=== PATIENT | male | born 1950 | race Caucasian/White ===

== ENCOUNTER → 2016-11-13 | Outpatient (CLI) | payer OTHER ==
[~2016-11-13] MED LIST: TRIA37.5 PO
[2016-11-13 13:26] LABS: ALT/SGPT 24 U/L (12-78); BLOOD UREA NITROGEN 20 mg/dl (7-18); BUN/CREATININE RATIO 16.9 (10-20); CALCIUM 8.9 mg/dl (8.5-10.1); CARBON DIOXIDE 25 mmol/L (21-32); CHLORIDE 107 mmol/L (98-107); GLUCOSE 110 mg/dl (70-99); POTASSIUM 4.3 mmol/L (3.5-5.1); SODIUM 139 mmol/L (136-145)
[2016-11-13 13:28] LABS: ALKALINE PHOSPHATASE 76 U/L (45-117); AST/SGOT 25 U/L (15-37)
[2016-11-13 13:34] LABS: ESTIMATED AVERAGE GLUCOSE 114 mg/dl; HA1C FLAG Normal (Normal)
--- NOTE | 2016-11-18 09:49 | CODING QUERY MEDICAL NECESSITY ---
SUPPORTING DIAGNOSIS NEEDED A supporting diagnosis is required for the test/procedure performed on this patient in order for us to be reimbursed by the patient's insurance. Please provide a supporting diagnosis for the following test/procedure listed below next to the test name along with your signature. *If there is no additional diagnosis for this patient that would support the following test/procedure please document that below next to the test/procedure. Test(s)/Procedure(s) that require a supporting diagnosis: * GLYCATED HEMOGLOBIN DIAGNOSIS: * DOS: 11/13/16 Provider Signature: Date: Thank you Yulia Nielsen Health Information Management Once completed, please kindly fax back to [phone] For questions please call [phone]
== END | disposition home or self-care (01) ==
LOC: C.LABPVFM 07:47
PROVIDERS: ATTEND Family Medicine
DX: R73.03 Prediabetes (principal); I10 Essential (primary) hypertension

== ENCOUNTER → 2017-05-20 | Outpatient (CLI) | payer OTHER ==
[~2017-05-20] VITALS: Ht 175.3 cm; Wt 98.7 kg
[2017-05-20 14:34] VITALS: BP 150/97; PULSE 96; Ht 175.3 cm; Wt 98.7 kg
== END | disposition home or self-care (01) ==
LOC: C.NEUR 13:25
PROVIDERS: ATTEND Internal Medicine Pulmonary Disease
DX: G47.33 Obstructive sleep apnea (adult) (pediatric) (principal)

== ENCOUNTER → 2017-10-29 | Outpatient (CLI) | payer OTHER ==
--- NOTE | 2017-10-29 09:59 | DIAGNOSTIC IMAGING REPORT ---
CERVICAL SPINE 5 VIEWS CLINICAL HISTORY: Cervical radiculopathy. FINDINGS: AP, lateral, bilateral oblique, and odontoid views of the cervical spine are compared to study dated 12/23/2012. The skeletal structures are osteopenic. There is no radiographic evidence of fracture or subluxation. Vertebral body height is maintained throughout the cervical spine. There is minimal anterolisthesis at C3-C4 and C4-C5. Alignment is otherwise preserved. There is straightening of the cervical lordosis with reversal centered at C4. The spinolaminar line is preserved. The odontoid process and lateral masses appear intact as seen on the open-mouth view. Anterior osteophytes are seen throughout. There is moderate to advanced disc space narrowing with associated endplate sclerosis seen at C5-C6 and C6-C7. Posterior disc osteophyte complexes at these levels likely contribute to acquired compromise of the central canal. Mild disc space narrowing is seen at C4-C5. Neural foraminal stenosis is suggested on the left from C3-C4 through C5-C6 on the oblique views. No significant neural foraminal stenosis is suggested on the right. The prevertebral soft tissues are normal in appearance. Partially imaged apical lung parenchyma appears clear. Mild atherosclerotic calcification is noted in the carotid bulbs. IMPRESSION: 1. No acute bony abnormality is seen involving the cervical spine. 2. Osteopenia and cervical spondylosis as detailed above. Dictated: 10/29/2017 9:53 AM Transcribed: 10/29/2017 9:59 AM [place] Electronically signed by: Wallace Isaac M.D. 10/29/2017 10:06 AM Dictated Date/Time: 10/29/2017 9:53 AM
[2017-10-29 13:48] LABS: ALBUMIN 3.9 gm/dl (3.4-5.0); ALT/SGPT 24 U/L (12-78); BLOOD UREA NITROGEN 15 mg/dl (7-18); CALCIUM 9.6 mg/dl (8.5-10.1); CARBON DIOXIDE 27 mmol/L (21-32); CHOLESTEROL 161 mg/dl (0-200); CREATININE 1.31 mg/dl (0.60-1.40); GLUCOSE 105 mg/dl (70-99); POTASSIUM 4.8 mmol/L (3.5-5.1); SODIUM 137 mmol/L (136-145)
[2017-10-29 13:51] LABS: ALKALINE PHOSPHATASE 79 U/L (45-117); AST/SGOT 23 U/L (15-37); LDL CHOLESTEROL CALCULATED 86 mg/dl; TOTAL PROTEIN 7.7 gm/dl (6.4-8.2)
== END | disposition home or self-care (01) ==
LOC: C.LABPVFM 09:32
PROVIDERS: ATTEND Family Medicine
DX: M54.12 Radiculopathy, cervical region (principal); I12.9 Hypertensive chronic kidney disease with stage 1 through stage 4 chronic kidney disease, or unspecified chronic kidney disease; N18.3 Chronic kidney disease, stage 3 (moderate); G47.30 Sleep apnea, unspecified; E78.5 Hyperlipidemia, unspecified; M85.88 Other specified disorders of bone density and structure, other site; M47.892 Other spondylosis, cervical region

== ENCOUNTER → 2017-11-05 | Outpatient (CLI) | payer OTHER ==
--- NOTE | 2017-11-05 09:13 | DIAGNOSTIC IMAGING REPORT ---
ABDOMINAL AORTIC ULTRASOUND CLINICAL HISTORY: Z13.6 Screening for AAA (abdominal aortic aneurysm)[id number] COMPARISON STUDY: None. FINDINGS: The abdominal aorta is normal in caliber measuring up to 1.8 cm in diameter. The bilateral common iliac arteries are also normal in caliber measuring 1.2 cm on the right and 1.3 cm left. IMPRESSION: Normal caliber abdominal aorta. Electronically signed by: Cristobal Lindquist M.D. 11/05/2017 9:11 AM Dictated Date/Time: 11/05/2017 9:10 AM
== END | disposition home or self-care (01) ==
LOC: C.ULTR 08:30
PROVIDERS: ATTEND Family Medicine
DX: Z13.6 Encounter for screening for cardiovascular disorders (principal)

== ENCOUNTER → 2017-11-16 | Outpatient (CLI) | payer OTHER ==
--- NOTE | 2017-11-16 11:33 | DIAGNOSTIC IMAGING REPORT ---
CERVICAL SPINE MRI HISTORY: Neck pain. Bilateral hand numbness. TECHNIQUE: Multiplanar multisequence MRI of the cervical spine was performed without the use of contrast. COMPARISON STUDY: Cervical spine radiograph 10/29/2017. FINDINGS: Slight reversal of the normal lordotic curvature of the cervical spine. Moderate to space are at C4-C5, C5-C6, and C6-C7 with small endplate osteophytes. The cervical spinal cord is normal in course, caliber, and signal intensity. The visualized posterior fossa is unremarkable. Prevertebral soft tissues and the C1-C2 interval are intact. C2-C3: No significant central canal or neural foraminal narrowing. C3-C4: No severe central canal or right-sided neural foraminal narrowing. There is mild left-sided neural foraminal narrowing. C4-C5: Small broad-based posterior disc bulge without significant central canal narrowing. There is moderate bilateral neural foraminal narrowing. C5-C6: Small broad-based posterior disc bulge without significant central canal narrowing. There is moderate bilateral neural foraminal narrowing. C6-C7: Small broad-based posterior disc bulge without significant central canal narrowing. There is moderate right and severe left neural foraminal narrowing. C7-T1: No significant central canal or neural foraminal narrowing. IMPRESSION: 1. Multilevel degenerative changes as described above primarily resulting in bilateral neural foraminal narrowing. This is most pronounced at the C6-C7 level. 2. Slight reversal of the normal lordotic curvature. Electronically signed by: Cristobal Lindquist M.D. 11/16/2017 11:32 AM Dictated Date/Time: 11/16/2017 11:17 AM
== END | disposition home or self-care (01) ==
LOC: C.MRIBC 09:35
PROVIDERS: ATTEND Orthopaedic Surgery Orthopaedic Surgery of the Spine
DX: M47.12 Other spondylosis with myelopathy, cervical region (principal)

== ENCOUNTER → 2018-05-05 | Outpatient (CLI) | payer OTHER ==
[~2018-05-05] VITALS: Ht 172.7 cm; Wt 99.8 kg
[2018-05-05 09:47] VITALS: BP 154/98; PULSE 59; Ht 172.7 cm; Wt 99.8 kg
== END | disposition home or self-care (01) ==
LOC: C.NEUR 09:02
PROVIDERS: ATTEND Internal Medicine Pulmonary Disease
DX: G47.33 Obstructive sleep apnea (adult) (pediatric) (principal)

== ENCOUNTER 2024-01-27 08:02 | Inpatient (IN) ==
--- NOTE | 2024-01-27 08:55 | Emergency Department Note ---
Impression & Plan Right-sided chest pain, Pulmonary emboli, Pleural effusion on right ED Provider Note HISTORY OF PRESENT ILLNESS: Patient is a 73-year-old female presenting with right shoulder pain and right lower chest pain. Patient reports that he woke up last night having significant pain with taking a deep breath. His called his doctor advised him Webb who recommended he present to the emergency department to rule out a blood clot to the lung. Patient fell last week and had negative scans at that time. He has been requiring significant assistance getting around the house. He is not currently on any anticoagulation. He denies any DVT or PE history. He is complaining of some right shoulder pain and reports pleuritic pain to the right lower chest wall and right upper quadrant region. Denies any fevers. He has been on omeprazole and dexamethasone prescribed by his oncologist. ROS: as above PHYSICAL EXAM: Constitutional: Patient appears in no acute distress. HENT: Head: Normocephalic and atraumatic. Eyes: EOMI, PERRL Mouth/Throat: Mucous membranes moist. Neck: Trachea midline. Neck supple. Cardiovascular: RRR, No murmurs, rubs or gallops. Intact distal pulses. Pulmonary/Chest: No respiratory distress. Breath sounds clear and equal bilaterally. No wheezes or rales. Abdominal: Abdomen soft, no rebound or guarding. RUQ TTP Musculoskeletal: No edema, tenderness or deformity noted. Reproducible tenderness to palpation to the mid-trapezius on the right. Skin: Warm and dry. No rash, erythema, pallor or cyanosis Psychiatric: Appropriate mood and affect for situation. Neurological: Alert and keenly responsive. CN II-XII grossly intact. Patient is able to lift her left upper extremity but has no movement in the left lower extremity, which she reports is chronic. MDM: - Vitals signs showed hypertension - History obtained via patient. History as above. - Chronic conditions affecting care: HTN; HLD; RAMOS; CKD stage 3; glioblastoma - Differential diagnoses include, but are not limited to: Acute coronary syndrome; pulmonary embolism; dissection; tension pneumothorax; esophageal rupture; pneumonia - Order placed for continuous cardiac monitoring. At this time, monitor showed rate of 76 bpm with normal sinus rhythm, per my interpretation. - External medical records reviewed. Showed discharge summary from [facility] dated 08/14/2023 was reviewed. Patient was admitted at that time for a right frontoparietal craniotomy for removal of the tumor. - EKG interpreted by myself showed normal sinus rhythm. Rate 74 bpm. QT 396. No acute ischemic changes. Noted to have some significant artifact on baseline. - Laboratory workup interpreted by myself showed normal WBC; thrombocytopenia (plt 124); normal PT/INR; stable electrolytes; normal troponin; normal BNP - CXR negative for pneumonia, per my interpretation - Xray right shoulder negative for fracture or dislocation - CT PE showed pulmonary emboli bilaterally involving the lobar, segmental and subsegmental branches, right greater than left. Also some straightening of the interventricular septum concerning for right heart strain. Noted to have some trace right pleural effusion. - CT abdomen/pelvis with IV contrast showed bilateral PEs as above. No acute intra-abdominal pathology - UA negative for infection - Patient initially given 50 mcg IV fentanyl. On reassessment, he reports that the fentanyl helped for a few minutes but the pain is back. He was given additional 50 mcg of IV fentanyl. Still complaining of significant pain and looks very uncomfortable. He was given 1 mg of IV Dilaudid. He did require some supplemental oxygen after Dilaudid dosing. - Heparin drip ordered. - Discussed case with [facility] oncologist, Dr. Phillips at 11:23. He agreed with the patient's heparin drip, but recommended discussion with hospitalist and neurosurgery services. - I then discussed the patient's case with the triage officer at [facility], Dr. Jevon Weaver at 12:16. He accepted the patient for transfer, but reported that there are no beds available at their facility. - Dr. Weaver called me back at 1245. He states that he had a multidisciplinary discussion with oncology, hospitalist and neurosurgical services at [facility]. They all felt comfortable with plan for the patient to remain admitted here at [facility] on heparin. Neurosurgery had recommended that once the patient is therapeutic on heparin, a repeat CT scan of the brain be obtained to ensure no abnormalities, but there is a thought that the risk of bleed in this patient is the same as the risk in someone who did not have surgery. Recommended patient be anticoagulated until therapeutic and then transition to oral anticoagulation per protocols at our facility. Can follow-up with his specialist in the outpatient setting. - Discussion was had with nurse case management about patient's case and need for admission - Hospitalist consulted for admission - [facility] ASSESSMENT AND PLAN: Diagnosis: Right-sided chest pain; pulmonary emboli; right pleural effusion Plan: Admit Past Med/Surg History Medical History (Updated 01/27/24 @ 13:06 by Hannah Malin MD) Mass of frontal lobe Cervical radiculopathy Chronic kidney disease, stage 3 Dyslipidemia Hypertension Obstructive sleep apnea, adult Sleep apnea Surgical History History of orthopedic surgery Amputation H/O shoulder surgery Family History Unknown No problems noted. Father Myocardial infarction Denies family history of Ovarian cancer Prostate cancer Diabetes Breast cancer Colorectal cancer Social History Smoking Status: Never smoker Hx Alcohol Use: No Hx Substance Use: No Preferred Language: Kittitian Beliefs That Will Affect Care: Taoist marital status: Current Living Situation: Spouse current occupational status: retired Feels Safe at Home: Yes caffeine: Yes Dental Care, Regularly: Yes Physical Activity Frequency: Does not Exercise Seatbelt Use: always Sunscreen Use: No Allergies Allergies Allergy/AdvReac Type Severity Reaction Status Date / Time amoxicillin Allergy Unknown HEADACHE Verified 01/18/24 20:43 Penicillins AdvReac Unknown headache Verified 01/18/24 20:43 Home Meds Home Medications Medication Instructions Recorded Confirmed atorvastatin 10 mg tablet 10 mg PO QAM 05/12/19 01/27/24 clonazepam 0.5 mg tablet 0.5 mg PO TID PRN Anxiety 08/15/20 01/27/24 lacosamide 200 mg tablet (Vimpat) 200 mg PO BID 08/15/20 01/27/24 levetiracetam 500 mg tablet 1,500 mg PO BID 08/15/20 01/27/24 (Keppra) ondansetron 8 mg disintegrating 8 mg PO Q8H PRN Nausea 08/15/20 01/27/24 tablet phenytoin sodium extended 100 mg 100 mg PO .COMPLEX 08/15/20 01/27/24 capsule sertraline 50 mg tablet 50 mg PO DAILY 08/15/20 01/27/24 acetaminophen 500 mg tablet 1,000 mg PO Q8 PRN Pain 01/18/24 01/27/24 (Tylenol Extra Strength) clotrimazole-betamethasone 1 1 applic topical UD 01/27/24 01/27/24 %-0.05 % topical cream dexamethasone 4 mg tablet 4 mg PO UD 01/27/24 01/27/24 omeprazole 20 mg capsule,delayed 20 mg PO UD 01/27/24 01/27/24 release Results & Data (ED) Vital Signs Vital Signs - 24 hr 01/27/24 08:09 01/27/24 08:17 01/27/24 08:30 Temperature 36.8 C Temperature Source Oral Pulse Rate 76 77 Pulse Rate from SpO2 Sensor Pulse Rhythm Respiratory Rate 12 19 Respiratory Depth Normal Blood Pressure 157/99 H 161/95 H Blood Pressure Mean 118 110 Blood Pressure Position Right Lateral Pulse Oximetry 92 93 Oxygen Delivery Method Room Air Room Air Sepsis Recent Fever Within 48 Hours No Sepsis New/Unexplained Change in Mental Status N/A Sepsis Action Taken by Nursing No Action Required 01/27/24 08:45 01/27/24 09:00 01/27/24 09:37 Temperature Temperature Source Pulse Rate 87 78 Pulse Rate from SpO2 Sensor 72 Pulse Rhythm Regular Respiratory Rate 12 16 Respiratory Depth Blood Pressure 136/78 Blood Pressure Mean 97 Blood Pressure Position Pulse Oximetry 93 92 Oxygen Delivery Method Room Air Sepsis Recent Fever Within 48 Hours Sepsis New/Unexplained Change in Mental Status Sepsis Action Taken by Nursing 01/27/24 10:31 01/27/24 11:00 01/27/24 11:31 Temperature Temperature Source Pulse Rate 79 76 88 Pulse Rate from SpO2 Sensor Pulse Rhythm Respiratory Rate 15 18 19 Respiratory Depth Blood Pressure 161/89 H 162/89 H Blood Pressure Mean 106 128 Blood Pressure Position Pulse Oximetry 93 93 92 Oxygen Delivery Method Room Air Room Air Room Air Sepsis Recent Fever Within 48 Hours Sepsis New/Unexplained Change in Mental Status Sepsis Action Taken by Nursing 01/27/24 12:10 Temperature Temperature Source Pulse Rate 76 Pulse Rate from SpO2 Sensor Pulse Rhythm Respiratory Rate 21 Respiratory Depth Blood Pressure 150/97 H Blood Pressure Mean 114 Blood Pressure Position Pulse Oximetry 92 Oxygen Delivery Method Sepsis Recent Fever Within 48 Hours Sepsis New/Unexplained Change in Mental Status Sepsis Action Taken by Nursing Laboratory Data 01/27/24 08:17 01/27/24 08:17 Lab Results 01/27/24 01/27/24 01/27/24 Range/Units 08:17 11:41 12:00 WBC 9.27 (4.8-10.8) K/ul RBC 5.33 (4.70-6.10) M/uL Hgb 17.6 (14.0-18.0) g/dl Hct 50.9 (42.0-52.0) % MCV 95.5 (80.0-100.0) fL MCH 33.0 (25.0-34.0) pg MCHC 34.6 (32.0-36.0) g/dL RDW Std Deviation 47.4 H (36.4-46.3) fL RDW Coeff of Yoanna 13.4 (11.5-14.5) % Plt Count 124 L (130-400) K/uL MPV 9.3 L (9.4-12.4) fL Immature Gran % (Auto) 0.5 % Neut % (Auto) 71.3 % Lymph % (Auto) 16.6 % Potter % (Auto) 10.7 % Eos % (Auto) 0.8 % Baso % (Auto) 0.1 % Neut # (Auto) 6.61 H (1.40-6.50) K/uL Lymph # (Auto) 1.54 (1.20-3.40) K/uL Potter # (Auto) 0.99 H (0.11-0.59) K/uL Eos # (Auto) 0.07 (0.00-0.50) K/uL Baso # (Auto) 0.01 (0.00-0.20) K/uL Immature Gran # (Auto) 0.05 (0.01-0.20) K/uL PT 10.9 (9.0-12.0) Seconds INR 1.0 (0.9-1.1) APTT 28 (21-31) Seconds PTT Ratio 1.0 Sodium 137 (136-145) mmol/L Potassium 3.7 (3.5-5.1) mmol/L Chloride 105 (98-107) mmol/L Carbon Dioxide 26 (21-32) mmol/L Anion Gap 6 (3-11) BUN 20 (6-23) mg/dl Creatinine 0.91 (0.6-1.4) mg/dl Est Cr Clr Drug Dosing 81.1 ml/min Est GFR ( Amer) 95.9 ml/min Est GFR (Non-Af Amer) 82.7 ml/min BUN/Creatinine Ratio 22.0 H (10-20) Glucose 96 (70-99(Fasting)) mg/dl Calcium 9.5 (8.6-10.3) mg/dl Magnesium 1.8 (1.7-2.4) mg/dl Total Bilirubin 0.6 (0.2-1.0) mg/dl AST 15 (13-39) U/L ALT 16 (7-52) U/L Alkaline Phosphatase 107 H (34-104) U/L Troponin I High Sens 4.9 (0-20) pg/ml B-Natriuretic Peptide 31 (0-100) pg/ml Total Protein 7.0 (6.0-8.3) gm/dl Albumin 4.0 (3.4-5.0) gm/dl Globulin 3.0 (2.5-4.0) gm/dl Albumin/Globulin Ratio 1.3 (0.9-2) Urine Color Urine Appearance (Clear) Urine pH (4.5-7.5) Ur Specific [place] (1.000-1.030) Urine Protein (Negative) Urine Glucose (UA) (Negative) Urine Ketones (Negative) Urine Blood (Negative) Urine Nitrite (Negative) Urine Bilirubin (Negative) Urine Urobilinogen (Negative) Ur Leukocyte Esterase (Negative) 01/27/24 Range/Units 12:08 WBC (4.8-10.8) K/ul RBC (4.70-6.10) M/uL Hgb (14.0-18.0) g/dl Hct (42.0-52.0) % MCV (80.0-100.0) fL MCH (25.0-34.0) pg MCHC (32.0-36.0) g/dL RDW Std Deviation (36.4-46.3) fL RDW Coeff of Yoanna (11.5-14.5) % Plt Count (130-400) K/uL MPV (9.4-12.4) fL Immature Gran % (Auto) % Neut % (Auto) % Lymph % (Auto) % Potter % (Auto) % Eos % (Auto) % Baso % (Auto) % Neut # (Auto) (1.40-6.50) K/uL Lymph # (Auto) (1.20-3.40) K/uL Potter # (Auto) (0.11-0.59) K/uL Eos # (Auto) (0.00-0.50) K/uL Baso # (Auto) (0.00-0.20) K/uL Immature Gran # (Auto) (0.01-0.20) K/uL PT (9.0-12.0) Seconds INR (0.9-1.1) APTT (21-31) Seconds PTT Ratio Sodium (136-145) mmol/L Potassium (3.5-5.1) mmol/L Chloride (98-107) mmol/L Carbon Dioxide (21-32) mmol/L Anion Gap (3-11) BUN (6-23) mg/dl Creatinine (0.6-1.4) mg/dl Est Cr Clr Drug Dosing ml/min Est GFR ( Amer) ml/min Est GFR (Non-Af Amer) ml/min BUN/Creatinine Ratio (10-20) Glucose (70-99(Fasting)) mg/dl Calcium (8.6-10.3) mg/dl Magnesium (1.7-2.4) mg/dl Total Bilirubin (0.2-1.0) mg/dl AST (13-39) U/L ALT (7-52) U/L Alkaline Phosphatase (34-104) U/L Troponin I High Sens (0-20) pg/ml B-Natriuretic Peptide (0-100) pg/ml Total Protein (6.0-8.3) gm/dl Albumin (3.4-5.0) gm/dl Globulin (2.5-4.0) gm/dl Albumin/Globulin Ratio (0.9-2) Urine Color Yellow Urine Appearance Clear (Clear) Urine pH 6.0 (4.5-7.5) Ur Specific [place] > 1.045 H (1.000-1.030) Urine Protein Negative (Negative) Urine Glucose (UA) Negative (Negative) Urine Ketones Negative (Negative) Urine Blood Negative (Negative) Urine Nitrite Negative (Negative) Urine Bilirubin Negative (Negative) Urine Urobilinogen Negative (Negative) Ur Leukocyte Esterase Negative (Negative) Administered Medications Heparin Sodium/Dextrose (Heparin Sodium/Dextrose) 25,000 units in 500 mls @ 29 mls/hr IV .[id number] MARY; Protocol Stop: 02/26/24 11:59 Last Admin: 01/27/24 12:10 Dose: 1,450 units/hr, 29 mls/hr Documented By: GURVINDER Co-signed By: KMO Discontinued Medications Fentanyl Citrate (Fentanyl Citrate Pf 100 Mcg/2 Ml Vial) 50 mcg IV NOW STA Stop: 01/27/24 08:53 Last Admin: 01/27/24 09:33 Dose: 50 mcg Documented By: GURVINDER Fentanyl Citrate (Fentanyl Citrate Pf 100 Mcg/2 Ml Vial) 50 mcg IV NOW STA Stop: 01/27/24 10:28 Last Admin: 01/27/24 10:36 Dose: 50 mcg Documented By: GURVINDER Heparin Sodium/Dextrose (Heparin Iv Adult Wt-Based Standard *No* Initial Bolus Protocol) 1 each IV ONE STA; Protocol Stop: 01/27/24 11:36 Last Admin: 01/27/24 12:10 Dose: Not Given Documented By: GURVINDER Hydromorphone HCl (Hydromorphone Inj 1 Mg/Ml Syringe) 1 mg IV NOW STA Stop: 01/27/24 11:36 Last Admin: 01/27/24 12:08 Dose: 1 mg Documented By: GURVINDER Ioversol (Optiray 320 125ml) 115 ml IV ONCE ONE Stop: 01/27/24 10:13 Last Admin: 01/27/24 10:12 Dose: 115 ml Documented By: KOJO Imaging Data Radiologist's Impression: Shoulder X-Ray 01/27/24 08:31 XR shoulder RT min 2V routine CLINICAL HISTORY: R shoulder pain s/p injury COMPARISON STUDY: None. FINDINGS: No fracture or dislocation within the right shoulder. The right clavicle is intact. Mild osteoarthritis at the glenohumeral joint. IMPRESSION: No fracture or dislocation within the right shoulder. ACT 112: Negative or not required by law. Electronically signed by: Cristobal Lindquist M.D. 01/27/2024 9:24 AM Abdomen/Pelvis CT 01/27/24 08:[address] WITH IV CONTRAST CT DOSE: HISTORY: RUQ abdominal pain TECHNIQUE: Multiaxial CT images of the abdomen and pelvis were performed following the use of intravenous contrast. A dose lowering technique was utilized adhering to the principles of ALARA. COMPARISON STUDY: None. FINDINGS: The lung bases will be reported on the same day chest CTA. There is a trace right pleural effusion. There are bilateral lower lobe pulmonary emboli. The heart is mildly enlarged. No pneumoperitoneum. No pneumatosis. No acute fractures. No hepatic or splenic masses. The main portal vein is patent. The gallbladder, pancreas, and adrenal glands are unremarkable. 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 The right kidney enhances normally. There are small left peripelvic renal cysts. No hydronephrosis. Small fat-containing umbilical hernia. There are small fat-containing left inguinal hernia. No retroperitoneal lymphadenopathy. No pelvic lymphadenopathy or pelvic free fluid. The bladder is unremarkable. The prostate gland is mildly enlarged. Colonic diverticulosis. No evidence for acute diverticulitis. No bowel wall thickening or obstruction. Normal appendix. IMPRESSION: 1. Bilateral lower lobe pulmonary emboli. This is better appreciated on the same day chest CTA. 2. Trace right pleural effusion. 3. No bowel wall thickening or obstruction. 4. Colonic diverticulosis. No evidence for acute diverticulitis. 5. Additional findings as described above. ACT 112: Negative or not required by law. Electronically signed by: Cristobal Lindquist M.D. 01/27/2024 10:50 AM Chest CTA 01/27/24 08:52 CT angio chest PE protocol CT DOSE: 2179.59 mGy.cm HISTORY: 73 years-old Male with PE; R lower pleurtic CP; CA hx. Acute chest pain with shortness of breath TECHNIQUE: Multiple CTA images of the chest were obtained after the intravenous administration of 115 ml Optiray. Coronal and sagittal MIPS were obtained from the axial data set and were submitted for review. All measurements were obtained according to NASCET criteria. A dose lowering technique was utilized adhering to the principles of ALARA. COMPARISON: CT abdomen and pelvis of same day FINDINGS: CTA: Heart is mildly enlarged. Trace pericardial effusion. Extensive coronary artery calcifications. Mild fusiform dilation of the ascending thoracic aorta measures up to 4 cm. No dissection. There is a considerable amount of pulmonary emboli noted bilaterally which involve the lobar, segmental and subsegmental branches, right greater than left. There is straightening of the intraventricular septum. No sagittal pulmonary embolus. CT CHEST: Respiratory motion artifact in its evaluation of the lungs. Unremarkable thyroid. No lymphadenopathy. Trace right pleural effusion with subsegmental bibasilar atelectasis. No large pulmonary infarct. Irregular partially calcified 9 mm solid nodules in the superior segment left lower lobe on image 131. A 7 mm solid nodule at the right lung apex is present on image 134. Central airways appear patent. No acute upper abdominal abnormality. Unremarkable soft tissues. No acute fracture. IMPRESSION: 1. Pulmonary emboli as above with associated right heart strain. 2. Trace right pleural effusion with mild bibasilar atelectasis. 3. Partially calcified irregular 9 mm superior segment left lower lobe and noncalcified 7 mm right upper lobe pulmonary nodules. Six-month follow-up chest CT recommended. 4. Mild fusiform dilation of the ascending thoracic aorta, 4 cm. ACT 112: Negative or not required by law. The above report was generated using voice recognition software. It may contain grammatical, syntax or spelling errors. Electronically signed by: Red Lisa M.D. 01/27/2024 10:46 AM Chest X-Ray 01/27/24 08:52 XR chest 1V portable HISTORY: 73 years-old Male Dyspnea acute shortness of breath COMPARISON: CTA chest of same day TECHNIQUE: AP view of the chest FINDINGS: Cardiac silhouette is enlarged. No pneumothorax, pleural effusion or overt pulmonary edema. Pulmonary vascular congestion with mild bibasilar opacities. Bones appear grossly intact. IMPRESSION: 1. Cardiomegaly with pulmonary vascular congestion. 2. Mild bibasilar atelectasis. ACT 112: Negative or not required by law. The above report was generated using voice recognition software. It may contain grammatical, syntax or spelling errors. Electronically signed by: Red Lisa M.D. 01/27/2024 10:29 AM Discharge Plan Visit Data Chief Complaint: Shoulder Pain ED Provider: Hannah Malin Discharge Problem: Right-sided chest pain, Pulmonary emboli, Pleural effusion on right Patient Disposition: Transfer Acute Care Hospital Forms Stand Alone Forms: [facility] Prescriptions Prescriptions: No Action levetiracetam [Keppra] 500 mg tablet 1,500 mg PO BID Rx Instructions: Take with 1,000mg tab =1,500 mg bid. phenytoin sodium extended 100 mg capsule 100 mg PO .COMPLEX Rx Instructions: 100 mg PO 1 pill at 8am, 1 pills at 1430 and 2 pill 2130; Vimpat 200 mg tablet 200 mg PO BID sertraline 50 mg tablet 50 mg PO DAILY ondansetron 8 mg tablet,disintegrating 8 mg PO Q8H PRN (Reason: Nausea) clonazepam 0.5 mg tablet 0.5 mg PO TID PRN (Reason: Anxiety) atorvastatin 10 mg tablet 10 mg PO QAM acetaminophen [Tylenol Extra Strength] 500 mg Tablet 1,000 mg PO Q8 PRN (Reason: Pain) dexamethasone 4 mg tablet 4 mg PO UD clotrimazole-betamethasone 1-0.05 % cream 1 applic TOPICAL UD omeprazole 20 mg capsule,delayed release(DR/EC) 20 mg PO UD Referrals Referrals: Uzair Blanc MD [Primary Care Provider] -
[2024-01-27 09:10] LABS: Basophils # (auto) 0.01 K/uL (0.00-0.20); Basophils % (auto) 0.1 %; Eosinophils # (auto) 0.07 K/uL (0.00-0.50); Eosinophils % (auto) 0.8 %; Hematocrit (blood only) 50.9 % (42.0-52.0); Hemoglobin 17.6 g/dl (14.0-18.0); Immature Granulocytes # (auto) 0.05 K/uL (0.01-0.20); Immature Granulocytes % (auto) 0.5 %; Lymphocytes # (auto) 1.54 K/uL (1.20-3.40); Lymphocytes % (auto) 16.6 %; Mean Corpuscular Hgb Conc 34.6 g/dL (32.0-36.0); Mean Corpuscular Volume 95.5 fL (80.0-100.0); Mean Platelet Volume 9.3 fL (9.4-12.4); Monocytes # (auto) 0.99 K/uL (0.11-0.59); Monocytes % (auto) 10.7 %; Neutrophils # (auto) 6.61 K/uL (1.40-6.50); Neutrophils % (auto) 71.3 %; Platelet Count 124 K/uL (130-400); RDW Coefficient of Variation 13.4 % (11.5-14.5); RDW Standard Deviation 47.4 fL (36.4-46.3); Red Blood Count 5.33 M/uL (4.70-6.10); White Blood Count 9.27 K/ul (4.8-10.8)
[2024-01-27 09:14] LABS: Albumin Globulin Ratio 1.3 (0.9-2); Bilirubin,Total 0.6 mg/dl (0.2-1.0); Calcium 9.5 mg/dl (8.6-10.3); Creatinine Clr Calc Pharmacy 81.1 ml/min; Est GFR (African American) 95.9 ml/min; Est GFR (Non-African American) 82.7 ml/min; Magnesium 1.8 mg/dl (1.7-2.4); Potassium 3.7 mmol/L (3.5-5.1)
[2024-01-27 09:21] LABS: Troponin I High Sensitivity 4.9 pg/ml (0-20)
--- NOTE | 2024-01-27 09:25 | XRay Report ---
XR shoulder RT min 2V routine CLINICAL HISTORY: R shoulder pain s/p injury COMPARISON STUDY: None. FINDINGS: No fracture or dislocation within the right shoulder. The right clavicle is intact. Mild os teoarthritis at the glenohumeral joint. IMPRESSION: No fracture or dislocation within the right shoulder. ACT 112: Negative or not required by law. Electronically signed by: Cristobal Lindquist M.D. 01/27/2024 9:24 AM
[2024-01-27] MEDS: fentaNYL citrate PF 100 MCG/2 ML VIAL IV STA ×2 (09:33→10:36)
[2024-01-27] MEDS: OPTIRAY 320 125ml IV ONE (10:12)
--- NOTE | 2024-01-27 10:30 | XRay Report ---
XR chest 1V portable HISTORY: 73 years-old Male Dyspnea acute shortness of breath COMPARISON: CTA chest of same day TECHNIQUE: AP view of the chest FINDINGS: Cardiac silhouette is enlarged. No pneumothorax, pleural effusion or overt pulmonary edema. Pulmonary vascular congestion with mild bibasilar opacities. Bones appear grossly intact. IMPRESSION: 1. Cardiomegaly with pulmonary vascular congestion. 2. Mild bibasilar atelectasis. ACT 112: Negative or not required by law. The above report was generated using voice recognition software. It may contain grammatical, syntax o r spelling errors. Electronically signed by: Red Lisa M.D. 01/27/2024 10:29 AM
--- NOTE | 2024-01-27 10:48 | CT Scan Report ---
CT angio chest PE protocol CT DOSE: 2179.59 mGy.cm HISTORY: 73 years-old Male with PE; R lower pleurtic CP; CA hx. Acute chest pain with shortness of breath TECHNIQUE: Multiple CTA images of the chest were obtained after the intravenous administration of 115 ml Optiray. Coronal and sagittal MIPS were obtained from the axial data set and were submitted for review. All measurements were obtained according to NASCET criteria. A dose lowering technique was u tilized adhering to the principles of ALARA. COMPARISON: CT abdomen and pelvis of same day FINDINGS: CTA: Heart is mildly enlarged. Trace pericardial effusion. Extensive coronary artery calcifications. Mild fusiform dilation of the ascending thoracic aorta measures up to 4 cm. No dissection. There is a cons iderable amount of pulmonary emboli noted bilaterally which involve the lobar, segmental and subsegme ntal branches, right greater than left. There is straightening of the intraventricular septum. No sag ittal pulmonary embolus. CT CHEST: Respiratory motion artifact in its evaluation of the lungs. Unremarkable thyroid. No lymphadenopathy. Trace right pleural effusion with subsegmental bibasilar atelectasis. No large pulmonary infarct. Ir regular partially calcified 9 mm solid nodules in the superior segment left lower lobe on image 131. A 7 mm solid nodule at the right lung apex is present on image 134. Central airways appear patent. No acute upper abdominal abnormality. Unremarkable soft tissues. No acute fracture. IMPRESSION: 1. Pulmonary emboli as above with associated right heart strain. 2. Trace right pleural effusion with mild bibasilar atelectasis. 3. Partially calcified irregular 9 mm superior segment left lower lobe and noncalcified 7 mm right up per lobe pulmonary nodules. Six-month follow-up chest CT recommended. 4. Mild fusiform dilation of the ascending thoracic aorta, 4 cm. ACT 112: Negative or not required by law. The above report was generated using voice recognition software. It may contain grammatical, syntax o r spelling errors. Electronically signed by: Red Lisa M.D. 01/27/2024 10:46 AM
--- NOTE | 2024-01-27 10:51 | CT Scan Report ---
ABDOMEN AND PELVIS CT WITH IV CONTRAST CT DOSE: HISTORY: RUQ abdominal pain TECHNIQUE: Multiaxial CT images of the abdomen and pelvis were performed following the use of intrave nous contrast. A dose lowering technique was utilized adhering to the principles of ALARA. COMPARISON STUDY: None. FINDINGS: The lung bases will be reported on the same day chest CTA. There is a trace right pleural e ffusion. There are bilateral lower lobe pulmonary emboli. The heart is mildly enlarged. No pneumoperi toneum. No pneumatosis. No acute fractures. No hepatic or splenic masses. The main portal vein is pat ent. The gallbladder, pancreas, and adrenal glands are unremarkable. A 9 mm fat-containing lesion wit hin the left kidney is consistent with a small angiomyolipoma. The right kidney enhances normally. Th ere are small left peripelvic renal cysts. No hydronephrosis. Small fat-containing umbilical hernia. There are small fat-containing left inguinal hernia. No retroperitoneal lymphadenopathy. No pelvic ly mphadenopathy or pelvic free fluid. The bladder is unremarkable. The prostate gland is mildly enlarge d. Colonic diverticulosis. No evidence for acute diverticulitis. No bowel wall thickening or obstruct ion. Normal appendix. IMPRESSION: 1. Bilateral lower lobe pulmonary emboli. This is better appreciated on the same day chest CTA. 2. Trace right pleural effusion. 3. No bowel wall thickening or obstruction. 4. Colonic diverticulosis. No evidence for acute diverticulitis. 5. Additional findings as described above. ACT 112: Negative or not required by law. Electronically signed by: Cristobal Lindquist M.D. 01/27/2024 10:50 AM
[2024-01-27] MEDS: HYDROmorphone INJ 1 MG/ML SYRINGE IV STA (12:08)
[2024-01-27] MEDS: Heparin IV Adult Wt-Based Standard *NO* INITIAL Bolus Protocol IV STA (12:10)
[2024-01-27] MEDS: HEPARIN SODIUM/DEXTROSE 25,000 UNITS/500 ML BAG IV SCH (12:10)
[2024-01-27 12:21] LABS: Appearance Urine Clear (Clear); Bilirubin Urine Negative (Negative); Blood Urine Negative (Negative); Color Urine Yellow; Glucose Urine UA Negative (Negative); Ketones Urine Negative (Negative); Leukocyte Esterase Urine Negative (Negative); Nitrite Urine Negative (Negative); Protein Urine Negative (Negative); Specific Gravity Urine > 1.045 (1.000-1.030); Urobilinogen Urine Negative (Negative)
[2024-01-27 12:39] LABS: Partial Thromboplastin Time 28 Seconds (21-31); Prothrombin Time 10.9 Seconds (9.0-12.0)
[2024-01-27] MEDS: KETOROLAC TROMETHAMINE 15 MG/ML VIAL IV ONE (13:28)
--- NOTE | 2024-01-27 14:11 | History & Physical Report ---
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 --CTA Chest:IMPRESSION: 1. Pulmonary emboli as above with associated right heart strain. 2. Trace right pleural effusion with mild bibasilar atelectasis. 3. Partially calcified irregular 9 mm superior segment left lower lobe and noncalcified 7 mm right upper lobe pulmonary nodules. Six-month follow-up chest CT recommended. 4. Mild fusiform dilation of the ascending thoracic aorta, 4 cm. Right-sided chest pain Pulmonary emboli Pleural effusion on right Admit to PCU Initially patient was accepted in transfer to [facility] as he has multiple specialist at [facility]; however IR felt there was no indication for thrombolysis or catheter directed therapy and felt his acute care could be managed here Discussed case with patient's oncologist, Dr. Renteria Neurosurg wants a repeat head CT when Xa levels therapeutic continue IV heparin obtain echo, b/l venous dopplers consult Pulmonology due to right heart strain control pain with prn [place] for moderate pain, IV dilaudid for severe pain, lidocaine patch consider minimal doses of toradol supplemental oxygen as needed when Xa level between 0.3-0.[address] head given hx of neurosug Glioblastoma Seizure d/o 2/2 above L sided hemiplegia 2/2 above follows [facility] [place] and neurosurg s/p mass resection/craniotomy in 2019; redo right frontal craniotomy for removal of tumor 08/12/23 currently with evidence of disease progression continue decadron therapy discussed with Dr. Renteria who states pt to keep his scheduled follow up. He is no longer a candidate for the upcoming plan of bevacizumab Plan to start lomustine once approved continue keppra, vimpat and dilantin Calcified lung nodules: recommend follow up CT in 6 months Fusiform dilation of ascending thoracic aorta, 4cm oupt follow up Chronic conditions: RAMOS on Cpap HTN: currently not on antihypertensive therapy HLD: continue statin MDD: continue zoloft DVT ppx: IV heparin FULL CODE: discussed with pt and Dispo: admit to PCU, PT/OT consults, pt significant physical decline, family is open to rehab if this is recommended PCP: Guanaco Pt was seen and examined in collaboration with Dr. Horne, please see addendum A total of 85 minutes was spent coordinating, documenting, and providing care for this patient excluding time spent in the performance of separately billed services. This included personally viewing all current laboratories and imaging studies, medication reconciliation, outpatient chart review, and discussion with specialists. Discussed case with patients and son at bedside and they agree with above. History of Present Illness Chief Complaint: R sided chest pain/shoulder pain since 2:30 a.m. 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 His is at bedside who helps elicit history. Of significance patient was diagnosed with glioblastoma approximately 4 years ago status post surgical resection. He has continued to have increased poor mobility associated with significant left-sided weakness. He is following closely with neurosurgery as well as oncology at [facility]. His oncologist is Dr. Llamas. Plan was for patient to have a port placed tomorrow to resume treatment due to evidence of tumor progression. He currently is on Decadron therapy secondary to vasogenic edema and tumor burden. This morning at approximately 2:30 AM he developed right-sided chest pain that radiated to his right shoulder. It kept him awake and he was unable to fall asleep. called the on-call oncology team who recommended he be seen in ED for further evaluation. His pain is constant but comes and goes in severity. When very severe he describes it as sharp and shooting otherwise it is mostly dull. It is worsened with movement and deep breathing. Resting makes it better. In ED he has had IV Dilaudid and IV fentanyl with minimal improvement. He denies any significant shortness of breath, lightheadedness, dizziness, fever, chills, sweats, cough, hemoptysis, nausea, vomiting or abdominal pain. In ED he remained hemodynamically stable. He did become slightly hypoxic secondary to administration of IV narcotics. CTA chest was performed which rev ealed pulmonary emboli with associated right heart strain, trace right pleural effusion and mild bibasilar atelectasis. He was started on IV heparin. ER provider discussed case with transfer center at [facility]. Initially plan was for patient to be transferred under hospitalist service with close follow-up regarding his oncology team. This eventually was denied as it was not felt the patient required any direct catheter therapy or thrombectomy. Allergies Allergy/AdvReac Type Severity Reaction Status Date / Time amoxicillin Allergy Unknown HEADACHE Verified 01/18/24 20:43 acetaminophen [From Percocet] AdvReac Mild Verified 01/27/24 13:12 oxycodone [From Percocet] AdvReac Mild Verified 01/27/24 13:12 Penicillins AdvReac Unknown headache Verified 01/18/24 20:43 Home Medications Medication Instructions Recorded Confirmed Type atorvastatin 10 mg tablet 10 mg PO QAM 05/12/19 01/27/24 History clonazepam 0.5 mg tablet 0.5 mg PO TID PRN Anxiety 08/15/20 01/27/24 History lacosamide 200 mg tablet (Vimpat) 200 mg PO BID 08/15/20 01/27/24 History levetiracetam 500 mg tablet 1,500 mg PO BID 08/15/20 01/27/24 History (Keppra) ondansetron 8 mg disintegrating 8 mg PO Q8H PRN Nausea 08/15/20 01/27/24 History tablet phenytoin sodium extended 100 mg 100 mg PO .COMPLEX 08/15/20 01/27/24 History capsule sertraline 50 mg tablet 50 mg PO DAILY 08/15/20 01/27/24 History acetaminophen 500 mg tablet 1,000 mg PO Q8 PRN Pain 01/18/24 01/27/24 History (Tylenol Extra Strength) clotrimazole-betamethasone 1 1 applic topical UD 01/27/24 01/27/24 History %-0.05 % topical cream dexamethasone 4 mg tablet 4 mg PO UD 01/27/24 01/27/24 History Past Med/Surg History Medical History Glioblastoma Mass of frontal lobe Cervical radiculopathy Chronic kidney disease, stage 3 Dyslipidemia Hypertension Obstructive sleep apnea, adult Sleep apnea Surgical History (Updated 01/27/24 @ 14:15 by Pamela Horn PA-C) Hx of craniotomy History of orthopedic surgery Amputation H/O shoulder surgery Family History Unknown No problems noted. Father Myocardial infarction Denies family history of Ovarian cancer Prostate cancer Diabetes Breast cancer Colorectal cancer Social History Smoking Status: Never smoker Hx Alcohol Use: No Hx Substance Use: No Preferred Language: Ivorian Beliefs That Will Affect Care: Holiness marital status: Current Living Situation: Spouse current occupational status: retired Feels Safe at Home: Yes caffeine: Yes Dental Care, Regularly: Yes Physical Activity Frequency: Does not Exercise Seatbelt Use: always Sunscreen Use: No Review of Systems Review of Systems: All systems reviewed & are unremarkable except as noted in HPI & below Physical Exam Physical Exam: Constitutional: WD/WN, Pt in pain, vitals as above, NAD, sitting up in bed, pleasant, conversing easily Head: +craniotomy scar, Normocephalic, Atraumatic Eyes: PERRL, conjunctivae normal, anicteric sclerae ENMT: external ear and nose normal, oropharynx normal Neck: trachea midline, no thyromegaly normal visual inspection Respiratory: decreased respiratory effort 2/2 pain, lungs clear to auscultation, no wheeze, rales, rhonchi. no accessory muscle use Cardiovascular: RRR, no murmur, no edema Vessels: no JVD or carotid bruit Chest: normal inspection of chest +TTP R chest wall Abdomen: normal bowel sounds, soft, nontender, no hepatosplenomegaly Musculoskeletal: no cyanosis or clubbing, L sided weakness 3/5 b/l, chronic Skin: no rashes, warm and dry normal turgor Neurologic: PERRL, EOMI, accommodation nl, no face palsy, no dysarthria CN's II-XI intact bilaterally and moves all extremities Psychiatric: A+Ox3, euthymic affect Lymphatic: no cervical or axillary lymphadenopathy : deferred Results & Data Results & Data Vital Signs (Past 12 Hours) Vital Signs Temp Pulse Resp BP Pulse Ox O2 Del Method 01/27/24 12:10 76 21 150/97 H 92 01/27/24 11:31 88 19 92 Room Air 01/27/24 11:00 76 18 162/89 H 93 Room Air 01/27/24 10:31 79 15 161/89 H 93 Room Air 01/27/24 09:37 16 136/78 92 01/27/24 09:00 78 12 93 Room Air 01/27/24 08:45 87 01/27/24 08:30 77 19 161/95 H 93 Room Air 01/27/24 08:17 36.8 C 01/27/24 08:09 76 12 157/99 H 92 Room Air Diagnostic Findings Shoulder X-Ray 01/27/24 08:31 XR shoulder RT min 2V routine CLINICAL HISTORY: R shoulder pain s/p injury COMPARISON STUDY: None. FINDINGS: No fracture or dislocation within the right shoulder. The right clavicle is intact. Mild osteoarthritis at the glenohumeral joint. IMPRESSION: No fracture or dislocation within the right shoulder. ACT 112: Negative or not required by law. Electronically signed by: Cristobal Lindquist M.D. 01/27/2024 9:24 AM Abdomen/Pelvis CT 01/27/24 08:[address] WITH IV CONTRAST CT DOSE: HISTORY: RUQ abdominal pain TECHNIQUE: Multiaxial CT images of the abdomen and pelvis were performed following the use of intravenous contrast. A dose lowering technique was utilized adhering to the principles of ALARA. COMPARISON STUDY: None. FINDINGS: The lung bases will be reported on the same day chest CTA. There is a trace right pleural effusion. There are bilateral lower lobe pulmonary emboli. The heart is mildly enlarged. No pneumoperitoneum. No pneumatosis. No acute fractures. No hepatic or splenic masses. The main portal vein is patent. The gallbladder, pancreas, and adrenal glands are unremarkable. 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 The right kidney enhances normally. There are small left peripelvic renal cysts. No hydronephrosis. Small fat-containing umbilical hernia. There are small fat-containing left inguinal hernia. No retroperitoneal lymphadenopathy. No pelvic lymphadenopathy or pelvic free fluid. The bladder is unremarkable. The prostate gland is mildly enlarged. Colonic diverticulosis. No evidence for acute diverticulitis. No bowel wall thickening or obstruction. Normal appendix. IMPRESSION: 1. Bilateral lower lobe pulmonary emboli. This is better appreciated on the same day chest CTA. 2. Trace right pleural effusion. 3. No bowel wall thickening or obstruction. 4. Colonic diverticulosis. No evidence for acute diverticulitis. 5. Additional findings as described above. ACT 112: Negative or not required by law. Electronically signed by: Cristobal Lindquist M.D. 01/27/2024 10:50 AM Chest CTA 01/27/24 08:52 CT angio chest PE protocol CT DOSE: 2179.59 mGy.cm HISTORY: 73 years-old Male with PE; R lower pleurtic CP; CA hx. Acute chest pain with shortness of breath TECHNIQUE: Multiple CTA images of the chest were obtained after the intravenous administration of 115 ml Optiray. Coronal and sagittal MIPS were obtained from the axial data set and were submitted for review. All measurements were ob tained according to NASCET criteria. A dose lowering technique was utilized adhering to the principles of ALARA. COMPARISON: CT abdomen and pelvis of same day FINDINGS: CTA: Heart is mildly enlarged. Trace pericardial effusion. Extensive coronary artery calcifications. Mild fusiform dilation of the ascending thoracic aorta measures up to 4 cm. No dissection. There is a considerable amount of pulmonary emboli noted bilaterally which involve the lobar, segmental and subsegmental branches, right greater than left. There is straightening of the intraventricular septum. No sagittal pulmonary embolus. CT CHEST: Respiratory motion artifact in its evaluation of the lungs. Unremarkable thyroid. No lymphadenopathy. Trace right pleural effusion with subsegmental bibasilar atelectasis. No large pulmonary infarct. Irregular partially calcified 9 mm solid nodules in the superior segment left lower lobe on image 131. A 7 mm solid nodule at the right lung apex is present on image 134. Central airways appear patent. No acute upper abdominal abnormality. Unremarkable soft tissues. No acute fracture. IMPRESSION: 1. Pulmonary emboli as above with associated right heart strain. 2. Trace right pleural effusion with mild bibasilar atelectasis. 3. Partially calcified irregular 9 mm superior segment left lower lobe and noncalcified 7 mm right upper lobe pulmonary nodules. Six-month follow-up chest CT recommended. 4. Mild fusiform dilation of the ascending thoracic aorta, 4 cm. ACT 112: Negative or not required by law. The above report was generated using voice recognition software. It may contain grammatical, syntax or spelling errors. Electronically signed by: Red Lisa M.D. 01/27/2024 10:46 AM Chest X-Ray 01/27/24 08:52 XR chest 1V portable HISTORY: 73 years-old Male Dyspnea acute shortness of breath COMPARISON: CTA chest of same day TECHNIQUE: AP view of the chest FINDINGS: Cardiac silhouette is enlarged. No pneumothorax, pleural effusion or overt pulmonary edema. Pulmonary vascular congestion with mild bibasilar opacities. Bones appear grossly intact. IMPRESSION: 1. Cardiomegaly with pulmonary vascular congestion. 2. Mild bibasilar atelectasis. ACT 112: Negative or not required by law. The above report was generated using voice recognition software. It may contain grammatical, syntax or spelling errors. Electronically signed by: Red Lisa M.D. 01/27/2024 10:29 AM Medications Administered Current Inpatient Medications Heparin Sodium/Dextrose (Heparin Sodium/Dextrose) 25,000 units in 500 mls @ 29 mls/hr IV .[id number] [facility]; Protocol Stop: 02/26/24 11:59 Last Admin: 01/27/24 12:10 Dose: 1,450 units/hr, 29 mls/hr Lidocaine (Lidocaine 5% 1 Patch) 1 patch TD QAM [facility] Stop: 02/26/24 13:59 Last Admin: 01/27/24 14:15 Dose: 1 patch Miscellaneous (Remove Lidoderm Patch) 1 each N/A DAILY@2100 [facility] Stop: 02/26/24 23:58 Phenytoin Sodium (Phenytoin Sodium Er 100 Mg Cap) 100 mg PO ONE ONE Stop: 01/27/24 14:31 Last Admin: 01/27/24 14:14 Dose: 100 mg ECG Additional Comments: I have independently reviewed and interpreted patient's admitting EKG which revealed: 73, nsr, no st or t wave change, poor quality ecg COVID-19 Results Results COVID-19 Adm Lab Results: RBC 5.33 M/uL (4.70-6.10) 01/27/24 WBC 9.27 K/ul (4.8-10.8) 01/27/24 Hgb 17.6 g/dl (14.0-18.0) 01/27/24 Hct 50.9 % (42.0-52.0) 01/27/24 Plt Count 124 K/uL (130-400) L 01/27/24 Neutrophils (%) (Auto) 71.3 % 01/27/24 Lymphocytes (%) (Auto) 16.6 % 01/27/24 Monocytes # (Auto) 0.99 K/uL (0.11-0.59) H 01/27/24 Eosinophils # (Auto) 0.07 K/uL (0.00-0.50) 01/27/24 Neutrophils # (Auto) 6.61 K/uL (1.40-6.50) H 01/27/24 Lymphocytes # (Auto) 1.54 K/uL (1.20-3.40) 01/27/24 Monocytes # (Auto) 0.99 K/uL (0.11-0.59) H 01/27/24 Eosinophils # (Auto) 0.07 K/uL (0.00-0.50) 01/27/24 Basophils # (Auto) 0.01 K/uL (0.00-0.20) 01/27/24 Immature Granulocyte # (Auto) 0.05 K/uL (0.01-0.20) 4 Na 137 mmol/L (136-145) 01/27/24 K 3.7 mmol/L (3.5-5.1) 01/27/24 Cl 105 mmol/L (98-107) 01/27/24 CO2 26 mmol/L (21-32) 01/27/24 Anion Gap 6 (3-11) 01/27/24 BUN 20 mg/dl (6-23) 01/27/24 Creatinine 0.91 mg/dl (0.6-1.4) 01/27/24 BUN/Creatinine Ratio 22.0 (10-20) H 01/27/24 Glucose Level 96 mg/dl (70-99(Fasting)) 01/27/24 Ca 9.5 mg/dl (8.6-10.3) 01/27/24 Total Bilirubin 0.6 mg/dl (0.2-1.0) 01/27/24 AST/SGOT 15 U/L (13-39) 01/27/24 ALT/SGPT 16 U/L (7-52) 01/27/24 Alkaline Phosphatase 107 U/L (34-104) H 01/27/24 Total Protein 7.0 gm/dl (6.0-8.3) 01/27/24 Albumin 4.0 gm/dl (3.4-5.0) 01/27/24 Globulin 3.0 gm/dl (2.5-4.0) 01/27/24 Albumin/Globulin Ratio 1.3 (0.9-2) 01/27/24 PTT 28 Seconds (21-31) 01/27/24 INR 1.0 (0.9-1.1) 01/27/24 Chest X-Ray 01/27/24 Code Status & VTE Plan Code Status FULL CODE VTE Prophylaxis Plan VTE Prophylaxis will be ordered: No Reason for no VTE drug order: Treatment not indicated Supervising Physician Co-Signing Physician Notes Pt was seen and examined by myself, Delphine Horne MD on the day of service. Care was coordinated with Pamela Horn PA-C. 73yoM w/ hx of glioblastoma presenting with right sided chest and shoulder pain. On exam, in no acute distress. No increased oxygen requirement. RRR, breath sounds with good air movement CTA chest noting bilateral pulmonary emboli R>L with heart strain and pulmonary nodules. Echo, pulm consult, appreciate recs. Case discussed by ED with pt's neurosurgical provider at [facility], agreeable to heparin, advised no need for transfer at this time. Continue with IV Heparin at this time. Otherwise as above. I spent a total [id number] coordinating, documenting, and providing care for this patient excluding time spent in the performance of separately billed services
[2024-01-27] MEDS: PHENYTOIN SODIUM ER 100 MG CAP PO ONE (14:14)
[2024-01-27] MEDS: LIDOCAINE 5% 1 PATCH TD SCH (14:15)
--- NOTE | 2024-01-27 15:15 | Ultrasound Report ---
BILATERAL LOWER EXTREMITY VENOUS DOPPLER HISTORY: Acute pain and swelling of the right lower extremity dvt COMPARISON STUDY: None. FINDINGS: Occlusive thrombus involves the majority of the left peroneal vein. There is normal compressibility, flow, and augmentation within the right lower extremity deep venous system. IMPRESSION: 1. Likely acute DVT of the left peroneal vein. 2. No right lower extremity DVT. ACT 112: Negative or not required by law. Electronically signed by: Red Lisa M.D. 01/27/2024 3:13 PM
--- NOTE | 2024-01-27 15:17 | Pulmonary Consultation ---
Date of Consultation January 27, 2024 Assessment & Plan (1) Pulmonary emboli: (2) Pleural effusion on right: (3) Right-sided chest pain: (4) Glioblastoma: (5) Obstructive sleep apnea, adult: Plan IMPRESSION: 73-year-old male with a significant past medical history of glioblastoma status post neurosurgical intervention x 2 with the most recent in August 2023 who presents with concerns of pleuritic RIGHT-sided chest pain and findings of multiple RIGHT-sided pulmonary emboli and concerns for RIGHT-sided heart strain. RECOMMENDATIONS: 1. Pulmonary emboli - Significant clot burden appreciated to the RIGHT-sided pulmonary vasculature greater than left. Concerns for RIGHT-sided heart strain per CT report. Laboratory assessment without elevated troponin or BNP. The patient is not hypoxic or requiring supplemental oxygen. He is normotensive and not tachycardic. There was conversation with [facility] for evaluation for possible catheter directed versus mechanical thrombectomy in a patient with recent neurological intervention in August of last year. After discussion, darren arently the neurosurgeon feels as though the patient is stable on heparin drip with close monitoring. Will defer to neurosurgical recommendation for imaging follow-up. Please see admitting services note. Otherwise, we will await the results of echocardiogram as this could be certainly more telling of the degree of RIGHT-sided heart strain than plain CT alone. Awaiting Doppler results. Agree with anticoagulation with heparin. Transition to oral agent when stability is reached. Patient will likely require lifelong anticoagulation given his unprovoked clot status in the setting of malignancy. Unfortunately, this does present a conundrum as the patient has been prone to falls after his neurosurgeries and certainly would be at risk for breakthrough bleeding. Patient does not require follow-up CTA to assess for resolution of clots. Patient may require follow-up echocardiogram in 3 months depending the results of baseline echocardiogram. Otherwise, continue to monitor the patient for any decline. Thrombolytic therapy would certainly be concerning this patient and we discussed this means of intervention with the patient's neurosurgical service prior to administering if patient is with noted decline. 2. RIGHT-sided pleural effusion - Small RIGHT-sided effusion noted on CT. Of uncertain etiology at this point. Not large enough for thoracentesis at this time. 3. RIGHT-sided chest pain - Pleuritic pain in the setting of large RIGHT-sided clot burden. Continue to manage pain as you are. 4. Glioblastoma - As managed by [facility] surgeon and oncology. 5. Obstructive sleep apnea - Continue with CPAP setting of 13 cm of water at night. Thank you for allowing us to participate in the care of this pleasant patient. Pulmonary medicine will follow along for now. Supervising Physician Co-Signing Physician Notes I saw and evaluated the patient with David Negrete PA-C, and agree with findings and plan as documented in the note. 73-year-old male past medical history of glioblastoma initially diagnosed in 2019 s/p right frontoparietal craniotomy, recent surgery done May 2023 present to the hospital with right-sided chest pain He was found to have significant pulmonary emboli. Pulmonary consulted for the same. At the time of examination patient complained of chest pain whenever he took deep breath in. He was saturating 91-92% on room air. Denies any nausea or vomiting No headache, blurry vision No recent travel history Constitutional: No acute distress HEENT: EOMI, PERRLA, right-sided craniotomy scar appreciated Respiratory system: Decreased air entry bilaterally, no wheeze, no rhonchi, mild crackles bilaterally CVS: S1-S2 positive, no murmurs or gallops Abdomen: Soft, nontender, nondistended, positive bowel sounds x4 Extremities: +2 pulses bilaterally radialis/ dorsalis pedis, no cyanosis, no edema, left-sided weakness Neuro: Awake alert oriented x3 Psych: Normal mood and affect G/U: No Song Plan: Patient is hemodynamically stable, saturating well on room air. BNP negative, troponin negative Although patient does have submassive PE, there is no indication for tPA Would recommend to continue with heparin drip. Recommend incentive spirometry to prevent atelectasis Please note the above document was generated using voice recognition software. It may contain grammatical, syntax or spelling errors.Any formal questions or concerns about the content, text or information contained within the body of this dictation should be directly addressed to the provider for clarification. History of Present Illness Reason for Consultation: b/l pe with R heart strain Requesting Physician: Pamela Horn PA-C Attending Physician: Patient is an unfortunate 73-year-old male with a significant past medical history of glioblastoma status post surgical intervention in 2018 followed by repeat surgical intervention on 08/12/2023 at [facility], hypertension, hyperlipidemia, and obstructive sleep apnea who presented to the emergency department with complaints of RIGHT-sided pleuritic chest discomfort which abruptly started in the residential sales hours this morning. Patient was brought to the emergency department after consulting with his primary oncology team and found to have pulmonary emboli with large clot burden and evidence of RIGHT-sided heart strain on CT. Thankfully, his troponin is not elevated. His BNP is not elevated. Patient is saturating well on room air at this time. Pulmonary medicine consulted for recommendations in the setting of pulmonary embolism with RIGHT-sided heart strain. Upon evaluation in room B5, the patient is awake, alert, and oriented. He describes pleuritic pain to the RIGHT-sided chest. He states his pain is improved with pain medications, but is still present with very deep inspiration. He also complains of some discomfort secondary to his fall. He offers no new complaints otherwise. Allergies Allergy/AdvReac Type Severity Reaction Status Date / Time amoxicillin Allergy Unknown HEADACHE Verified 01/18/24 20:43 acetaminophen [From Percocet] AdvReac Mild Verified 01/27/24 13:12 oxycodone [From Percocet] AdvReac Mild Verified 01/27/24 13:12 Penicillins AdvReac Unknown headache Verified 01/18/24 20:43 Home Medications Medication Instructions Recorded Confirmed Type atorvastatin 10 mg tablet 10 mg PO QAM 05/12/19 01/27/24 History clonazepam 0.5 mg tablet 0.5 mg PO TID PRN Anxiety 08/15/20 01/27/24 History lacosamide 200 mg tablet (Vimpat) 200 mg PO BID 08/15/20 01/27/24 History levetiracetam 500 mg tablet 1,500 mg PO BID 08/15/20 01/27/24 History (Keppra) ondansetron 8 mg disintegrating 8 mg PO Q8H PRN Nausea 08/15/20 01/27/24 History tablet phenytoin sodium extended 100 mg 100 mg PO .COMPLEX 08/15/20 01/27/24 History capsule sertraline 50 mg tablet 50 mg PO DAILY 08/15/20 01/27/24 History acetaminophen 500 mg tablet 1,000 mg PO Q8 PRN Pain 01/18/24 01/27/24 History (Tylenol Extra Strength) clotrimazole-betamethasone 1 1 applic topical UD 01/27/24 01/27/24 History %-0.05 % topical cream dexamethasone 4 mg tablet 4 mg PO UD 01/27/24 01/27/24 History Patient History Medical History Glioblastoma Mass of frontal lobe Cervical radiculopathy Chronic kidney disease, stage 3 Dyslipidemia Hypertension Obstructive sleep apnea, adult Sleep apnea Surgical History (Updated 01/27/24 @ 14:15 by Pamela Horn PA-C) Hx of craniotomy History of orthopedic surgery Amputation H/O shoulder surgery Family History Unknown No problems noted. Father Myocardial infarction Denies family history of Ovarian cancer Prostate cancer Diabetes Breast cancer Colorectal cancer Social History Smoking Status: Never smoker Hx Alcohol Use: No Hx Substance Use: No Preferred Language: Cypriot Table Games Dual Rate Supervisor Required: No Beliefs That Will Affect Care: None marital status: Current Living Situation: Spouse current occupational status: retired Feels Safe at Home: Yes caffeine: Yes Dental Care, Regularly: Yes Physical Activity Frequency: Does not Exercise Seatbelt Use: always Sunscreen Use: No Assistive Devices: Glasses and Hearing Aid - Bilateral Assistive Devices Comment: hearing aids at home ,glasses with patient Review of Systems Review of Systems: A complete 10 point review of systems was reviewed with the patient with pertinent positives and negatives as per history of present illness. All else were negative. Physical Exam Physical Exam: VITAL SIGNS - Vital signs and nursing notes were reviewed. GENERAL - 73-year-old male appearing his stated age who is in no acute distress. Communicates well with provider and answers questions appropriately. SKIN - Without rashes or lesions. NOSE - Midline and without cyanosis. No epistaxis or purulent drainage noted. MOUTH/OROPHARYNX - Without perioral cyanosis. NECK - Neck with FROM. LUNGS - Chest wall evaluation demonstrates normal chest wall A:P diameter. Auscultation reveals clear breath sounds bilaterally without wheezes, rales, or rhonchi appreciated. CARDIAC - RRR with S1/S2. No murmur, rubs, or gallops appreciated. ABDOMEN - Abdominal inspection demonstrates an obese abdomen. BS normoactive all four quadrants. No tenderness, palpable masses, or ascites noted. EXTREMITIES - Nail clubbing not present. No peripheral cyanosis. No pretibial edema present. +3/5 radial palpated throughout. PSYCH - A&Ox3 and cooperates fully with examiner. Pt is very pleasant and interacts well with examiner. Results & Data Results & Data Vital Signs (Past 12 Hours) Vital Signs Temp Pulse Resp BP Pulse Ox O2 Del Method 01/27/24 14:20 76 21 01/27/24 14:10 75 12 93 01/27/24 14:00 114/75 01/27/24 14:00 77 12 92 01/27/24 13:50 75 11 L 94 01/27/24 13:40 79 17 98 01/27/24 13:30 128/88 01/27/24 13:30 75 18 94 01/27/24 13:20 24 89 L 01/27/24 13:10 81 15 94 01/27/24 13:00 135/80 01/27/24 13:00 76 14 92 01/27/24 12:50 78 19 96 01/27/24 12:40 79 23 90 01/27/24 12:30 131/102 H 01/27/24 12:30 82 19 87 L 01/27/24 12:10 76 21 150/97 H 92 01/27/24 11:31 88 19 92 Room Air 01/27/24 11:00 76 18 162/89 H 93 Room Air 01/27/24 10:31 79 15 161/89 H 93 Room Air 01/27/24 09:37 16 136/78 92 01/27/24 09:00 78 12 93 Room Air 01/27/24 08:45 87 01/27/24 08:30 77 19 161/95 H 93 Room Air 01/27/24 08:17 36.8 C 01/27/24 08:09 76 12 157/99 H 92 Room Air PG Care Time/CCT Total # of Minutes Spent Total Time Spent with Patient: Total time spent is greater than 50% in coordination of care (as documented) at patient's floor/unit and/or counseling patient: Coding Level of Care Code 71218 INT INP/OBS CARE 3/75MIN Diagnoses Pulmonary emboli I26.99 Pleural effusion on right J90 Right-sided chest pain R07.9 Glioblastoma C71.9 Obstructive sleep apnea, adult G47.33
--- NOTE | 2024-01-27 15:54 | Electrocardiogram Report ---
Test Reason : Blood Pressure : / mmHG Vent. Rate : 074 BPM Atrial Rate : 074 BPM P-R Int : 148 ms QRS Dur : 108 ms QT Int : 396 ms P-R-T Axes : 047 -56 024 degrees QTc Int : 439 ms Normal sinus rhythm Left axis deviation Minimal voltage criteria for LVH, may be normal variant Nonspecific T wave abnormality Abnormal ECG When compared with ECG of 02-AUG-2022 07:39, Nonspecific T wave abnormality now evident in Anterior leads Confirmed by Luis Leahy ([id number]) on 01/27/2024 3:54:00 PM Referred By: REFERRED SELF Confirmed By:Luis Leahy
[2024-01-27] MEDS ORDERED: ALUMINUM/MAGNESIUM SUSP 30 ML UDC PO PRN (15:56)
[2024-01-27] MEDS ORDERED: ONDANSETRON INJ 2 MG/ML 2 ML VIAL IV PRN (15:56)
[2024-01-27] MEDS: dexAMETHasone 4 MG TAB PO SCH (17:17)
[2024-01-27 19:33] LABS: ANTI-Xa, UFH(UnfractionatedHep 0.64 IU/ml (0.3-0.7)
[2024-01-27] MEDS ORDERED: PHENYTOIN SODIUM ER 100 MG CAP PO SCH (21:30)
[2024-01-27] MEDS: DOCUSATE SODIUM 100 MG CAP PO SCH (21:59)
[2024-01-27] MEDS: LACOSAMIDE 50 MG TABLET PO SCH (22:00)
[2024-01-27] MEDS: levETIRAcetam 500 MG TAB PO SCH (22:01)
[2024-01-27] MEDS: PHENYTOIN SODIUM ER 100 MG CAP PO SCH (22:03)
--- OUTSIDE RECORDS SUMMARY | 2024-01-27 22:35 | External Medical Summary | Summary of Care ---
Author Name Unknown Organization [facility] Address [address] [place] [address] Phone [phone] Care Team Providers Care System Consultant Name Role Phone Uzair Blanc MD Primary Care Provider + Encounter Details Date Type Department Care Team (Late st Contact Info) Description 01/24/2024 Orders Only Outcomes Research Department [address] [place] [address] Yasmeen Schaefer CHRA [employer] [facility] Other*[id number] Allergies Active Allergy Reactions Criticality Noted Date Comments Amoxicillin Other (Please comment) Low 05/13/2019 headache documented as of this encounter (statuses as of 01/24/2024) Medications Medication Sig Dispensed Refills Start Date End Date Status acetaminophen (TYLENOL) 500 MG Tablet Take 1 Tab by mouth every 6 hours. 60 Tab 0 05/17/2019 Active Additional Information Patient taking differently: 500-1,000 [id number] PRN, Reported on 10/21/2022 Loratadine 10 MG Oral Capsule Take 1 Capsule by mouth in the morning. As needed for sinuses . 0 Active Triamcinolone Acetonide 0.1 % External Cream (Aristocort)Indicati ons:Rash and nonspecific skin eruption Apply topically to affected area 2 times a day. To affected area. 15 g 5 10/21/2022 Active clonazePAM 0.5 MG Oral Tablet (KlonoPIN) Take 0.5 Tablets by mouth daily as needed for Other (focal seizures). 10 Tablet 1 02/22/2023 Active Atorvastatin Calcium 10 MG Oral Tablet (Lipitor)Indications :Mixed hyperlipidemia Take 1 Tablet by mouth in the morning. 90 Tablet 3 03/05/2023 Active CPAP every night at bedtime. 0 Active Phenytoin Sodium Extended 100 MG Oral Capsule (Dilantin) TAKE 1 AT 8AM, 1 AT 2:30PM, 2 AT 9:30PM - NO MEALS WITHIN 30 MINUTES OF DOSE 360 Capsule 1 09/01/2023 Active Sertraline HCl 50 MG Oral Tablet (Zoloft)Indications: Glioblastoma (HCC) Take 1 Tablet by mouth in the morning. 90 Tablet 3 09/06/2023 Active levETIRAcetam 1000 MG Oral Tablet TAKE 1 TABLET BY MOUTH IN THE MORNING AND BEFORE BEDTIME 180 Tablet 1 10/11/2023 Active Lacosamide 200 MG Oral Tablet (Vimpat)Indications: Epilepsia partialis continua (HCC) TAKE 1 TABLET BY MOUTH IN THE MORNING AND BEFORE BEDTIME 180 Tablet 1 11/22/2023 Active levETIRAcetam 500 MG Oral Tablet (Keppra) TAKE 1 TABLET BY MOUTH IN THE MORNING AND 1 TABLET BEFORE BEDTIME. TAKE WITH 1000 MG TABLET FOR TOTAL OF 1500 MG TWICE DAILY.. 180 Tablet 1 01/11/2024 Active dexAMETHasone 4 MG Oral Tablet (Decadron)Indication s:Glioblastoma (HCC) Take 1 tab by mouth three times a day for 3 days, Then take 1 tab by mouth twice a day for 5 days, then take one tab in the morning and half tab in afternoon for 5 days, then half tab in morning and half tab in afternoon 30 Tablet 0 01/19/2024 Active Omeprazole 20 MG Oral Capsule Delayed Release (PriLOSEC)Indication s:Glioblastoma (HCC) Take 2 Capsules by mouth in the morning. 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 09/04/2019 White matter disease, unspecified 09/04/2019 Hypertension goal BP (blood pressure) < 140/90 1 10/25/2018 Mixed hyperlipidemia 08/25/2019 Hearing loss, bilateral 08/25/2019 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 Glioblastoma 05/18/2019 RAMOS on CPAP 05/13/2019 documented as of this encounter (statuses as of 01/24/2024) Resolved Problems Problem Noted Date Diagnosed Date Resolved Date Stage 3 chronic kidney disease 08/12/2023 08/19/2023 Stage 3 chronic kidney disease 12/23/2019 12/27/2019 Gait instability 12/23/2019 12/04/2021 Benign hypertension with CKD (chronic kidney disease) stage III 08/25/2019 11/27/2019 Seizure-like activity 06/01/20192021 Essential hypertension 05/13/201908/25 HLD (hyperlipidemia) 05/13/2019 019 Class 1 obesity in adult 05/13/2019 documented as of this encounter (statuses as of 01/24/2024) Immunizations Name Administration Dates Next Due COVID-19 mRNA, LNP-s, No Pre serve, 2-Dose Series ([place]) 09/24/2021,01/09/2021,12/18/2020 Pneumococcal Conjugate Vacc, 13 Valent (Prevnar) 09/03/2014 Pneumococcal Polysaccharide PPV23 (Pneumovax) 05/26/2016 Season Influenza, Quad, PF, Adjuvanted, 65+ Yrs, IM (FLUAD) 08/27/2020 Seasonal Influenza, Quadriva lent Hd (Fluzone Hd) 08/27/2023,09/09/2021 TD - Tetanus/Diptheria (ADULT) 04/03/2009 Varicella Zoster Vaccine (Adult) 03/02/2014 documented as of this encounter Social History Tobacco Use Types Packs/Day Years Used Date Smoking Tobacco: Never Smokeless Tobacco: Never Alcohol Use Standard Drinks/Week Comments Not Currently 20 (1 standard drink = 0.6 oz pu re alcohol) PHQ-2 Answer Date Recorded PHQ Adult Total Score 10 01/21/2024 Hunger Vital Sign Answer Date Recorded Within the past 12 months, y ou worried that your food would run out before you got the money to buy more. Never true 01/21/20 24 Within the past 12 months, t he food you bought just didn't last and you didn't have money to get more. Never true 01/21/2024 Sex and Gender Information Value Date Recorded Sex Assigned at Male 08/25/2019 9:13 AM EST Gender Identity Male 06/24/2022 9:22 AM EDT Sexual Orientation Straight 08/25/2019 9: 13 AM EST Job Start Date Occupation Industry Not on file Not on file Not on file documented as of this encounter Functional Status Functional Status Response Date of Assess ment Are you deaf or do you have serious difficulty h earing? No 05/13/2019 Are you blind or do you have serious difficulty seeing, even when wearing glasses? No 05/13/2019 Do you have serious difficul ty walking or climbing stairs? (5 years old or older) No 08/13/2023 Do you have difficulty dress ing or bathing? (5 years old or older) No 05/13/2019 Because of a physical, menta l, or emotional condition, do you have difficulty doing errands alone such as visiting a doctor s office or shopping? (15 years old or older) No 05/13/20 Cognitive Status Response Date of Assessm ent Because of a physical, menta l, or emotional condition, do you have serious difficulty concentrating, remembering, or making decisions? (5 years old or older) No 05/13/2019 documented as of this encounter Plan of Treatment Upcoming Encounters Date Type Department Care Team (Late st Contact Info) Description 01/24/2024 3:45 PM EDT Pharmacy Pharmacy Hematology Oncology [place] [address] [place] [address] [facility] Hem/Onc [address] [place] [address] 01/28/2024 1:00 PM EDT Appointment Interventional Radiology [facility], [facility] [address] [place] [address] 02/11/2024 11:30 AM EDT Office Visit Podiatry [address] [place] [address] Travon Underwood, CLAR[place] [address] [place] [phone] 02/16/2024 11:20 AM EDT Laboratory Laboratory Hem/Onc [facility], [place] [address] [place] [phone] [place], [facility] [address], [place] [phone] 02/16/2024 12:00 PM EDT Office Visit Hematology Oncology [facility], [place] [address] [place] [phone] Fide Bush PA-C [address] [place], [place] [phone] 02/16/2024 1:00 PM EDT Hem/Onc Treatment Hematology Oncology [facility], [place] [address], [place] [phone] Neo, Chair 1 Hem/Onc [facility] [address] [place], [place] [phone] 03/01/2024 2:20 PM EDT Office Visit Neurology, [place] [address] [place] [address] Shellie Gregory PA-C [address] [place] [address] 04/19/2024 12:00 PM EDT Office Visit General Internal Medicine [facility] [address] [facility] [place] [address] Uzair Blanc MD [address] [place] [address] 04/24/2024 3:15 PM EDT Hospital Encounter MRI, [address] [id number] 05/01/2024 9:45 AM EDT Office Visit Neurosurgery, [address] [address] Clinic, Brain Tumor Multidisciplinary [address] [place] [address] Scheduled Orders Name Type Priority Associated Diagnoses Orde r Schedule MYCODE INITIAL ADULT Lab Routine MyCode Research Other*[id number] Expected: 01/24/2024 (Approximate), Expires: 02/12/2025 Health Maintenance Due Date Last Done Comments Fecal Occult Blood Test 1994 Sigmoidoscopy 1994 DTaP,Tdap,and Td Vaccines (1 - Tdap) 04/04/2009 04/03/2009 Zoster Vaccines (2 of 3) 04/27/2014 03/02/2014 Colonoscopy 03/03/2023 03/03/2013 COVID-19 Vaccine (4 - season) 2023 09/24/2021, 01/09/2021, 12/18/2020 Depression, Most Recent Score >= 10 (will fire each visit until score < 10) 01/22/2024 01/21/2024 GFR 01/11/2025 01/12/2024, 12/03, 12/16/2023, Additional history exists Albumin/Creatinine Ratio 07/02/2025 07/02/2022, 08/05 Cologuard 01/11/2026 01/11/2023, 04/0 12/2022, 01/04/2023 Colorectal Cancer Screening 01/11/2026 Lipid Panel 07/21/2028 07/21/2023, 06/05, 06/16/2021, Additional history exists Pneumococcal Vaccine: 65+ Years Completed 05/26/2016, 09/03/2014 Influenza Vaccine (FLU shot) Completed , 09/09/2021, 08/27/2020 GARDASIL-HPV IMMUNIZATION SERIES Aged Out No longer eligible based on patient's age to complete this topic Hepatitis B Aged Out No longer eligi ble based on patient's age to complete this topic MENINGOCOCCAL (MENACTRA/MENVEO) Aged Out No longer eligible based on patient's age to complete this topic documented as of this encounter Medical Devices Implanted Type Area Control Chemist Device Identifier Shelf Expiration Date Model / Serial / Lot Graft Lyoplant 7.5x7.5cm 3x3 - [id number] - [id number] Implanted:Qty : 1 on 05/15/2019 by Patel Villavicencio MD at OR [facility] Right: Head B KIMBLE : [id number] 02/01/2024 [id number] / [id number] / [id number] Cover Bur Hol Ti Lo 17 421.527 - [id number] Implanted:Qty : 1 on 05/15/2019 by Patel Villavicencio MD at OR [facility] Right: Head SYNTHES MAXILLOFACIAL 421.527 / / Description:from set Plate Ti Lo Pro Str 2h 421.502 - [id number] Implanted:Qty : 2 on 05/15/2019 by Patel Villavicencio MD at OR [facility] Right: Head SYNTHES MAXILLOFACIAL 421.502 / / Description:from set Screw 4mm Ti Low Pro Sdrill - [id number] Implanted:Qty : 8 on 05/15/2019 by Patel Villavicencio MD at OR [facility] Explanted:Qty : 4 on 08/12/2023 by Patel Villavicencio MD at OR [facility] Right: Head SYNTHES MAXILLOFACIAL 400.834E / / Graft Lyoplant 5.0x5.0cm 2x2 - [id number] - [id number] Implanted:Qty : 1 on 08/12/2023 by Patel Villavicencio MD at OR [facility] B KIMBLE : [id number] 01/02/2028 10 [id number] / [id number] / [id number] Screw 1.5x4mm Axs Sd Un3 - [id number] Implanted:Qty : 4 on 08/12/2023 by Patel Villavicencio MD at OR [facility] Right: Head ESTRELLA : CRANIOMAXILLOFACIAL [id number] / / Description:Lot number and e xpiration date not supplied. documented as of this encounter Visit Diagnoses Diagnosis MyCode Research Other*[id number] documented in this encounter Advance Directives Latest Code Status on File Code Status Date Activated Date Inactivated Comments Full Code 08/12/2023 1:11 PM 08/14/2023 5:15 PM This order reflects the patients wishes and were consensually agreed upon. Question Answer Comments Discussion of Advance Directives occurred with: Patient Code Status History Code Status Date Activated Date Inactivated Comments Full Code 08/12/2023 6:48 AM 08/12/2023 1:11 PM This order reflects the patients wishes and were consensually agreed upon. Question Answer Comments Discussion of Advance Directives occurred with: Patient Full Code 12/21/2019 9:51 PM 12/24/2019 1:18 AM This order reflects the patients wishes and were consensually agreed upon. Question Answer Comments Discussion of Advance Directives occurred with: Patient Full Code 05/13/2019 1:33 AM 05/17/2019 6:12 PM This order reflects the patients wishes and were consensually agreed upon. Question Answer Comments Discussion of Advance Directives occurred with: Not Discussed Healthcare Agents on File Name Relationship Healthcare Agent Relationship Communication Jessica Lucero Spouse First Alternate Health Care Agent (per Health Care Power of Review Rn document) [email or web address] Care Teams System Consultant Relationship Specialty Start Date End Date Uzair Blanc MD [address] [place] [address] PCP - General Internal Medicine 08/25/19 documented as of this encounter
--- OUTSIDE RECORDS SUMMARY | 2024-01-27 22:35 | External Medical Summary | Summary of Care ---
Author Name Unknown Organization [facility] Address [address] [place] [address] Phone [phone] Care Team Providers Care [employer] Information Clerk Name Role Phone Uzair Blanc MD Primary Care Provider + Reason for Visit * Reason Onset Date Comments Encounter Created in Error 01/21/2024 Encounter Details Date Type Department Care Team ([facility] st Contact Info) Description 01/21/2024 Telephone Care Coordination and Integration [address] [place], [place] [phone] Hannah Lynn RN [address] [place], [place] [phone] Encounter Created in Error Allergies Active Allergy Reactions Criticality Noted Date Comments Amoxicillin Other (Please comment) Low 05/13/2019 headache documented as of this encounter (statuses as of 01/21/2024) Medications Medication Sig Dispensed Refills Start Date End Date Status acetaminophen (TYLENOL) 500 MG Tablet Take 1 Tab by mouth every 6 hours. 60 Tab 0 05/17/2019 Active Additional Information Patient taking differently: 500-1,000 [id number] PRN, Reported on 10/21/2022 Loratadine 10 MG [...] as of this encounter (statuses as of 01/21/2024) Active Problems Problem Noted Date Diagnosed Date [...] as of this encounter (statuses as of 01/21/2024) Resolved Problems Problem Noted Date Diagnosed Date Resolved Date Stage 3 chronic kidney disease 08/12/2023 08/19/2023 Stage 3 chronic kidney disease 12/23/2019 12/27/2019 Gait instability 12/23/2019 12/04/2021 Benign hypertension with CKD (chronic kidney disease) stage III 08/25/2019 11/27/2019 Seizure-like activity 06/01/20192021 Essential hypertension 05/13/201908/25 HLD (hyperlipidemia) 05/13/2019 019 Class 1 obesity in adult 05/13/2019 documented as of this encounter (statuses as of 01/21/2024) Immunizations Name Administration Dates Next Due COVID-19 mRNA, LNP-s, No Pre serve, 2-Dose Series ([employer]) 09/24/2021,01/09/2021,12/18/2020 Pneumococcal Conjugate Vacc, 13 Valent (Prevnar) [...] Upcoming Encounters Date Type Department Care Team (Latest Contact Info) Description 01/21/2024 1:45 PM EDT Pharmacy Pharmacy Hematology Oncology [address] [address] [facility] [place], [facility] Clinic Hem/Onc [address] [place] [phone] Glioblastoma (HCC)* 01/21/2024 4:30 PM EDT Telemedicine Hematology Oncology [place] [address] [place] [address] Pat Renteria MD [facility] [place] [address] 01/24/2024 3:45 PM EDT Pharmacy Pharmacy Hematology Oncology [facility], [place] [address] [place] [address] [facility] [place], [facility] Clinic Hem/Onc [address] [place] [address] 01/28/2024 1:00 PM EDT Appointment Interventional Radiology [facility], [facility] [address] [place] [phone] 02/11/2024 11:30 AM EDT Office Visit Podiatry [facility], [address] [place] [phone] Travon Underwood, [place] [address] [place] [address] 02/16/2024 11:20 AM EDT Laboratory Laboratory Hem/Onc [address] [phone] [place], Lab Med4 [facility] [place] [address] 02/16/2024 12:00 PM EDT Office Visit Hematology Oncology [place] [address] [place] [address] Fide Bush PA-C [address] [place], [place] [phone] 02/16/2024 1:00 PM EDT Hem/Onc Treatment Hematology Oncology [place] [address] [place] [address] Neo, Chair 1 Hem/Onc [address] [place] [phone] 03/01/2024 2:20 PM EDT Office Visit Neurology, [address] [phone] Shellie Gregory PA-C [address] [place] [address] 04/19/2024 12:00 PM EDT Office Visit General Internal Medicine Mike Mejia [place] [address] [facility] [place] [address] Uzair Blanc MD [address] [facility] [address] 04/24/2024 3:15 PM EDT Appointment MRI, [place] [address] [place] [address] 05/01/2024 9:45 AM EDT Office Visit Neurosurgery, [place] [address] [place] [address] Clinic, Brain Tumor Multidisciplinar [address] [place] [address] Health Maintenance Due Date Last Done Comments Fecal Occult Blood Test 1994 Sigmoidoscopy 1994 DTaP,Tdap,and Td Vaccines (1 - Tdap) 04/04/2009 04/03/2009 Zoster Vaccines (2 of 3) 04/27/2014 03/02/2014 Colonoscopy 03/03/2023 03/03/2013 COVID-19 Vaccine (4 - 2022- season) 2023 09/24/2021, 01/09/2021, 12/18/2020 Depression, Most [...] this encounter Medical Devices Implanted Type Area Historical Archeologist Device Identifier Shelf Expiration Date Model / Serial / Lot Graft Lyoplant 7.5x7.5cm 3x3 - [id number] - [id number] Implanted:Qty : 1 on 05/15/2019 by Patel Villavicencio MD at OR [facility] Right: Head B KIMBLE : [id number] 02/01/2024 [id number] / [id number] / [id number] Cover Bur Hol Ti Lo 17 421.527 - [id number] Implanted:Qty : 1 on 05/15/2019 by Patel Villavicencio MD at OR [facility] Right: Head SYNTHES MAXILLOFACIAL 421.527 / / Description:from set Plate Ti Lo Pro Str 2h 421.502 - [id number] Implanted:Qty : 2 on 05/15/2019 by Patel Villavicencio MD at OR [facility] Right: Head SYNTHES MAXILLOFACIAL 421.502 / / Description:from set Screw 4mm Ti Low Pro Sdrill - [id number] Implanted:Qty : 8 on 05/15/2019 by Patel Villavicencio MD at OR [facility] Explanted:Qty : 4 on 08/12/2023 by Patel Villavicencio MD at OR [facility] Right: Head SYNTHES MAXILLOFACIAL 400.834E / / Graft Lyoplant 5.0x5.0cm 2x2 - [id number] - [id number] Implanted:Qty : 1 on 08/12/2023 by Patel Villavicencio MD at OR [facility] B KIMBLE : [id number] 01/02/2028 10 [id number] / [id number] / [id number] Screw 1.5x4mm Axs Sd Un3 - [id number] Implanted:Qty : 4 on 08/12/2023 by Patel Villavicencio MD at [facility] Right: Head ESTRELLA : CRANIOMAXILLOFACIAL [id number] / / Description:Lot number and e xpiration date not supplied. documented as of this encounter Advance Directives Latest Code Status [...] Care Agent (per Health Care Power of Livestock Slaughterer document) [email or web address] Care Teams [employer] Information Clerk Relationship Specialty Start Date End Date Uzair Blanc MD [address] [place] [phone] PCP - General Internal Medicine 08/25/19 documented as of this encounter
--- OUTSIDE RECORDS SUMMARY | 2024-01-27 22:35 | External Medical Summary | Summary of Care ---
Author Name Unknown Organization [facility] Address [address] [place] [address] Phone [phone] Care Team Providers Care Custodial Services Manager Name Role Phone Uzair Blanc MD Primary Care Provider + Reason for Visit * Reason Onset Date Comments Advice 01/27/2024 Encounter Details Date Type Department Care Team ([facility] st Contact Info) Description 01/27/2024 Telephone [facility] Hematology [address] [place] [address] Mio Parkinson PA-C [address] [place] [address] Advice Allergies Active Allergy Reactions Criticality Noted Date Comments Amoxicillin Other (Please comment) Low 05/13/2019 headache documented as of this encounter (statuses as of 01/27/2024) Medications Medication Sig Dispensed Refills Start Date End Date Status acetaminophen (TYLENOL) 500 MG Tablet Take 1 Tab by mouth every 6 hours. 60 Tab 0 05/17/2019 Active Additional Information Patient taking differently: 500-1,000 grFygzR1G PRN, Reported on 10/21/2022 Loratadine 10 MG [...] as of this encounter (statuses as of 01/27/2024) Active Problems Problem Noted Date Diagnosed Date [...] as of this encounter (statuses as of 01/27/2024) Resolved Problems Problem Noted Date Diagnosed Date Resolved Date Stage 3 chronic kidney disease 08/12/2023 08/19/2023 Stage 3 chronic kidney disease 12/23/2019 12/27/2019 Gait instability 12/23/2019 12/04/2021 Benign hypertension with CKD (chronic kidney disease) stage III 08/25/2019 11/27/2019 Seizure-like activity 06/01/20192021 Essential hypertension 05/13/201908/25 HLD (hyperlipidemia) 05/13/2019 019 Class 1 obesity in adult 05/13/2019 documented as of this encounter (statuses as of 01/27/2024) Immunizations Name Administration Dates Next Due COVID-19 mRNA, LNP-s, No Pre serve, 2-Dose Series ([employer]™) 09/24/2021,01/09/2021,12/18/2020 Pneumococcal Conjugate Vacc, 13 Valent (Prevnar) [...] (15 years old or older) No 05/13/20 19 Cognitive Status Response Date of Assessm ent Because of a physical, menta l, or emotional condition, do you have serious difficulty concentrating, remembering, or making decisions? (5 years old or older) No 05/13/2019 documented as of this encounter Miscellaneous Notes * Telephone Encounter - Mio Parkinson PA-C - 01/27/2024 6:10 AM EDT Patient's called concerning her Ar. He woke up this morning and started to 10/10 pain when taking a deep breath in. Says it is about a 5/10 pain while just breathing normally. Describes the pain around his rib cage and also travels to his stomach and around to his back. Has experienced weakness and gait imbalance over the last week or so and was seen by his primary oncologist, Dr. Renteria on 01/20. He has had more dizziness in the last two days. Denies any fevers, headaches, confusion, vision changes, palpitations, changes in his bowel function. Has had left leg numbness for the past week or so. They do have a home health nurse coming in at 11:30-12 today, and his was wondering if they should head straight to the ER now. I recommended they go to the ED considering the acuteness and severity of this pleuritic chest pain. He has no history of clotting according to his . She was planning to call the ambulance since he is not able to stand on his own and she is notable to help him by herself. [facility] will be going to [facility] ED. documented in this encounter Plan of Treatment Upcoming Encounters Date Type Department Care Team (Late st Contact Info) Description 01/28/2024 1:00 PM EDT Hospital Encounter Interventional Radiology [facility], [facility] 1st Floor [facility] [address] 01/28/2024 3:45 PM EDT Pharmacy Pharmacy Hematology Oncology [address] [address] [facility] [place] [facility] Hem/Onc [address] [place] [address] 02/11/2024 11:30 AM EDT Office Visit Podiatry [address] [place] [address] Travon Underwood, [facility] [address] [place] [address] 02/16/2024 11:20 AM EDT Laboratory Laboratory Hem/Onc [address] [phone] [place], Lab [address] [place] [phone] 02/16/2024 12:00 PM EDT Office Visit Hematology Oncology [address] [phone] Fide Bush PA-C [facility] [address] [place], [place] [phone] 02/16/2024 1:00 PM EDT Hem/Onc Treatment Hematology Oncology [facility], [place] [address] [place] [address] [place], Chair 1 Hem/Onc [address] [place] [address] 03/01/2024 2:20 PM EDT Office Visit Neurology, [place] [address] [place] [phone] Shellie Gregory PA-C [address] [place], [place] [phone] 04/19/2024 12:00 PM EDT Office Visit General Internal Medicine [facility] [address] [place] [address] Uzair Blanc MD [address] [place] [address] 04/24/2024 3:15 PM EDT Hospital Encounter MRI, [place] [address] [place] [address] 05/01/2024 9:45 AM EDT Office Visit Neurosurgery, [place] [address] [place] [address] Clinic, Brain Tumor Multidisciplinary [address], [place] [phone] Health Maintenance Due Date Last Done Comments [...] this encounter Medical Devices Implanted Type Area Patient Support Specialist Device Identifier Shelf Expiration Date Model / Serial / Lot Graft Lyoplant 7.5x7.5cm 3x3 - [id number] - [id number] Implanted:Qty : 1 on 05/15/2019 by Patel Villavicencio MD at OR [facility] Right: Head B KIMBLE : AESCULAP [id number] 02/01/2024 [id number] / [id number] / [id number] Cover Bur Hol Ti Lo 17 421.527 - [id number] Implanted:Qty : 1 on 05/15/2019 by Patel Villavicencio MD at OR [facility] Right: Head SYNTHES MAXILLOFACIAL 421.527 / / Description:from set Plate Ti Lo Pro Str 2h 421.502 - [id number] Implanted:Qty : 2 on 05/15/2019 by Patel Villavicencio MD at OR [facility] Right: Head SYNTHES MAXILLOFACIAL 421.502 / / Description:from set Screw 4mm Ti Low Pro Sdrill - [id number] Implanted:Qty : 8 on 05/15/2019 by Patel Villavicencio MD at OR [facility] Explanted:Qty : 4 on 08/12/2023 by Patel Villavicencio MD at OR [facility] Right: Head SYNTHES MAXILLOFACIAL 400.834E / / Graft Lyoplant 5.0x5.0cm 2x2 - [id number] - [id number] Implanted:Qty : 1 on 08/12/2023 by Patel Villavicencio MD at OR [facility] B KIMBLE : AESCULAP [id number] 01/02/2028 10 [id number] / [id number] / [id number] Screw 1.5x4mm Axs Sd Un3 - [id number] Implanted:Qty : 4 on 08/12/2023 by Patel Villavicencio MD at OR [facility] Right: Head ESTRELLA : CRANIOMAXILLOFACIAL [id number] / / Description:Lot number and e xpiration [...] Care Agent (per Health Care Power of Tobacco Grower document) [email or web address] Care Teams Custodial Services Manager Relationship Specialty Start Date End Date Uzair Blanc MD [address] [place] [address] PCP - General Internal Medicine 08/25/19 documented as of this encounter
--- OUTSIDE RECORDS SUMMARY | 2024-01-27 22:35 | External Medical Summary | Summary of Care ---
Author Name Unknown Organization [facility] Address [address] [place] [address] Phone [phone] Care Team Providers Care Product Finisher Name Role Phone Uzair Blanc MD Primary Care Provider + Encounter Details Date Type Department Care Team (Late st Contact Info) Description 01/21/2024 Telephone [facility] [place] [place] [address] Lo Rahman, HEALTH SERVICE WORKER Allergies Active Allergy Reactions Criticality Noted Date Comments Amoxicillin Other (Please comment) Low 05/13/2019 headache documented as of this encounter (statuses as of 01/25/2024) Medications Medication Sig Dispensed Refills Start Date End Date Status acetaminophen (TYLENOL) 500 MG Tablet Take 1 Tab by mouth every 6 hours. 60 Tab 0 05/17/2019 Active Additional Information Patient taking differently: 500-1,000 muPtymJ3O PRN, Reported on 10/21/2022 Loratadine 10 MG [...] as of this encounter (statuses as of 01/25/2024) Active Problems Problem Noted Date Diagnosed Date [...] as of this encounter (statuses as of 01/25/2024) Resolved Problems Problem Noted Date Diagnosed Date Resolved Date Stage 3 chronic kidney disease 08/12/2023 08/19/2023 Stage 3 chronic kidney disease 12/23/2019 12/27/2019 Gait instability 12/23/2019 12/04/2021 Benign hypertension with CKD (chronic kidney disease) stage III 08/25/2019 11/27/2019 Seizure-like activity 06/01/20192021 Essential hypertension 05/13/201908/25 HLD (hyperlipidemia) 05/13/2019 019 Class 1 obesity in adult 05/13/2019 documented as of this encounter (statuses as of 01/25/2024) Immunizations Name Administration Dates Next Due COVID-19 mRNA, LNP-s, No Pre serve, 2-Dose Series ([employer]) 09/24/2021,01/09/2021,12/18/2020 Pneumococcal Conjugate Vacc, 13 Valent (Prevnar) [...] encounter Miscellaneous Notes * Telephone Encounter - Lo Rahman, ONDINA - 01/21/2024 8:31 AM EDT 01/21/2024 8:31 AM Message received from patient's this morning narrowing home health choices and requesting not only a transport chair but also a hospital bed. Order for transport chair received from [facility] doesnot meet Medicare guidelines and I have no note with which I can work to support the need for the DME. Patient's PCP, Dr. Uzair Blanc, just saw the patient this week. Last night, I reached outto Dr. Blanc and the case repairer asking for a complete order and a amendment to the patient note. Called [facility] [phone]. Spoke with Tracie. Information faxed to that office at [phone]. Await response as to whether or not they will accept the case. 8:56 AM Message received from Dr. Blanc. Note is amended to reflect need for transport chair. Awaitingorder for chair. The following things are still needed: Medicare acceptable order for lightweight wheelchair (transport chair) Medicare acceptable order for hospital bed Completion of Dr. Renteria's note Hannah Lynn is coordinating with me. LATER: Message received from Gayle from [facility] Home Health ([phone]). Case accepted but the agency is suggesting nursing. Will clarify with the clinic/ Services provided include: Care Coordination Durable Medical Equipment Referrals/Orders documented in this encounter Plan of Treatment Upcoming Encounters Date Type Department Care Team (Late st Contact Info) Description 01/26/2024 3:45 PM EDT Pharmacy Pharmacy Hematology Oncology [address] [address] [facility] Hem/Onc [facility] [place] [address] 01/28/2024 1:00 PM EDT Appointment Interventional [place]iology [facility] [facility] 1st Floor [address] [place] [phone] 02/11/2024 11:30 AM EDT Office Visit Podiatry [address] [place] [address] Travon Underwood, [facility] [address] [place], [place] [phone] 02/16/2024 11:20 AM EDT Laboratory Laboratory Hem/Onc [address] [phone] [place], Lab Med4 [facility] [place] [address] 02/16/2024 12:00 PM EDT Office Visit Hematology Oncology [facility] [address] [place] [phone] Fide Bush PA-C [facility] [address] [place], [place] [phone] 02/16/2024 1:00 PM EDT Hem/Onc Treatment Hematology Oncology [facility], [place] [address] [place] [address] Neo, Chair 1 Hem/Onc [address] [place] [address] 03/01/2024 2:20 PM EDT Office Visit Neurology, [place] [address] [place] [phone] Shellie Gregory PA-C [address] [place], [place] [phone] 04/19/2024 12:00 PM EDT Office Visit General Internal Medicine [facility] 200 [facility] [place] [address] Uzair Blanc MD [address] [place] [address] 04/24/2024 3:15 PM EDT Hospital Encounter MRI, [place] [address] [place], [place] [phone] 05/01/2024 9:45 AM EDT Office Visit Neurosurgery, [place] [address] [place] [address] Clinic, Brain Tumor Multidisciplinary [address] [place], [place] [phone] Health Maintenance Due Date Last Done Comments [...] this encounter Medical Devices Implanted Type Area Insurance Operations Rep Device Identifier Shelf Expiration Date Model / Serial / Lot Graft Lyoplant 7.5x7.5cm 3x3 - [id number] - [id number] Implanted:Qty : 1 on 05/15/2019 by Patel Villavicencio [place] [facility] [place]: Head B KIMBLE : AESCULAP [id number] 02/01/2024 [id number] / [id number] / [id number] Cover Bur Hol Ti Lo 17 421.527 - [id number] Implanted:Qty : 1 on 05/15/2019 by Patel Villavicencio MD [place] [facility]: Head SYNTHES MAXILLOFACIAL 421.527 / / Description:from set Plate Ti Lo Pro Str 2h 421.502 - [id number] Implanted:Qty : 2 on 05/15/2019 by Patel Villavicencio MD [place] [facility]: Head SYNTHES MAXILLOFACIAL 421.502 / / Description:from set Screw 4mm Ti Low Pro Sdrill - [id number] Implanted:Qty : 8 on 05/15/2019 by Patel Villavicencio MD [place] [facility] Explanted:Qty : 4 on 08/12/2023 by Patel Villavicencio MD [place] [facility] [place]: Head SYNTHES MAXILLOFACIAL 400.834E / / Graft Lyoplant 5.0x5.0cm 2x2 - [id number] - [id number] Implanted:Qty : 1 on 08/12/2023 by Patel Villavicencio MD at [place] [facility] B KIMBLE : AESCULAP [id number] 01/02/2028 10 [id number] / [id number] / [id number] Screw 1.5x4mm Axs Sd Un3 - [id number] Implanted:Qty : 4 on 08/12/2023 by Patel Villavicencio MD [place] [facility] Right: Head ESTRELLA : CRANIOMAXILLOFACIAL [id number] / / Description:Lot number and e xpiration [...] Care Agent (per Health Care Power of Code And Test Clerk document) [email or web address] Care Teams Product Finisher Relationship Specialty Start Date End Date Uzair Blanc MD 200 [facility], [place] [phone] PCP - General Internal Medicine 08/25/19 documented as of this encounter
--- OUTSIDE RECORDS SUMMARY | 2024-01-27 22:35 | External Medical Summary | Summary of Care ---
Author Name Unknown Organization [facility] Address [address] [place] [address] Phone [phone] Care Team Providers Care Grades 1 Thru 6 Home Teacher Name Role Phone Uzair Blanc MD Primary Care Provider + Encounter Details Date Type Department Care Team (Latest Contact Info) Description 01/18/2024 9:45 PM EDT - 01/18/2024 11:59 PM EDT Hospital Encounter Radiology [facility] [address] [place] [address] Arrived Discharge Disposition: Home - Self Care Allergies Active Allergy Reactions Criticality Noted Date Comments Amoxicillin Other (Please comment) Low 05/13/2019 headache documented as of this encounter (statuses as of 01/21/2024) Medications Medication Sig Dispensed Refills Start Date End Date Status acetaminophen (TYLENOL) 500 MG Tablet Take 1 Tab by mouth every 6 hours. 60 Tab 0 05/17/2019 Active Additional Information Patient taking differently: 500-1,000 chDzuiE9J PRN, Reported on 10/21/2022 Loratadine 10 MG [...] TWICE DAILY.. 180 Tablet 1 01/11/2024 Active documented as of this encounter (statuses [...] mRNA, LNP-s, No Pre serve, 2-Dose Series ([employer]) 09/24/2021,01/09/2021,12/18/2020 Pneumococcal Conjugate Vacc, 13 Valent (Prevnar) [...] Team (Late st Contact Info) Description 01/21/2024 1:45 PM EDT Pharmacy Pharmacy Hematology Oncology [address] [address] [facility] Hem/Onc [facility] [place] [address] 01/21/2024 4:30 PM EDT Telemedicine Hematology Oncology [address] [address] Pat Renteria MD [address] [place] [address] 01/28/2024 1:00 PM EDT Appointment Interventional Radiology [facility] [place] [facility] 1st Floor [address] [place] [address] 02/11/2024 11:30 AM EDT Office Visit Podiatry [facility], [address] [place] [address] Travon Underwood DPM [facility] [place] [address] 02/16/2024 11:20 AM EDT Laboratory Laboratory Hem/Onc [address] [phone] [place], Lab Med4 [address] [place] [address] 02/16/2024 12:00 PM EDT Office Visit Hematology Oncology [facility], [place] [address] [place] [phone] Fide Bush PA-C [address] [place], [place] [phone] 02/16/2024 1:00 PM EDT Hem/Onc Treatment Hematology Oncology [facility], [place] [address] [place], [place] [phone] [place], Chair 1 Hem/Onc [facility] [place] [address] 03/01/2024 2:20 PM EDT Office Visit Neurology, [address] [phone] Shellie Gregory PA-C [address] [place], [place] [phone] 04/19/2024 12:00 PM EDT Office Visit General Internal Medicine [facility] 200 [place] [address] Uzair Blanc MD 200 [place] [address] 04/24/2024 3:15 PM EDT Appointment MRI, [place] [address] [place], [place] [phone] 05/01/2024 9:45 AM EDT Office Visit Neurosurgery, [address] [phone] Clinic, Brain Tumor Multidisciplinary [facility] [address] [place], [place] [phone] Health Maintenance Due Date Last Done Comments [...] this encounter Medical Devices Implanted Type Area Pharmacy Scheduler Device Identifier Shelf Expiration Date Model / Serial / Lot Graft Lyoplant 7.5x7.5cm 3x3 - [id number] - [id number] Implanted:Qty : 1 on 05/15/2019 by Patel Villavicencio MD at [place] [facility] [place] Right: Head B KIMBLE : [id number] 02/01/2024 [id number] / [id number] / [id number] Cover Bur Hol Ti Lo 17 421.527 - [id number] Implanted:Qty : 1 on 05/15/2019 by Patel Villavicencio MD at OR [facility] [place] Right: Head SYNTHES MAXILLOFACIAL 421.527 / / Description:from set Plate Ti Lo Pro Str 2h 421.502 - [id number] Implanted:Qty : 2 on 05/15/2019 by Patel Villavicencio MD at OR [facility] [place] Right: Head SYNTHES MAXILLOFACIAL 421.502 / / Description:from set Screw 4mm Ti Low Pro Sdrill - [id number] Implanted:Qty : 8 on 05/15/2019 by Patel Villavicencio MD at OR [facility] [place] Explanted:Qty : 4 on 08/12/2023 by Patel Villavicencio MD at OR [facility] [place] Right: Head SYNTHES MAXILLOFACIAL 400.834E / / Graft Lyoplant 5.0x5.0cm 2x2 - [id number] - [id number] Implanted:Qty : 1 on 08/12/2023 by Patel Villavicencio MD at OR [facility] [place] B KIMBLE : AESCULAP [id number] 01/02/2028 10 53352 / [id number] / [id number] Screw 1.5x4mm Axs Sd Un3 - [id number] Implanted:Qty : 4 on 08/12/2023 by Patel Villavicencio MD at OR [facility] [place] Right: Head ESTRELLA : CRANIOMAXILLOFACIAL [id number] / / Description:Lot number and e xpiration date not supplied. documented as of this encounter Procedures Procedure Name Priority Date/Time Associated Diagnosis Comments RADIOLOGY EXAM - CT (IMAGES ONLY, NO REPORT) Routine 01/18/2024 9:45 PM EDT documented in this encounter Results * RADIOLOGY EXAM - CT (IMAGES ONLY, NO REPORT) (01/18/2024 9:45 PM EDT) 01/18/2024 9:39 PM EDT Narrative Scheduling, Silent - 01/20/2024 7:43 PM EDT This is an imaging study not interpreted or resulted by a [employer] or [employer] contracted radiologist. Uzair Blanc MD RAD CT documented in this encounter Advance Directives Latest [...] Care Agent (per Health Care Power of General Technician document) [email or web address] Care Teams Grades 1 Thru 6 Home Teacher Relationship Specialty Start Date End Date Uzair Blanc MD [address] [place] [address] PCP - General Internal Medicine 08/25/19 documented as of this encounter
--- OUTSIDE RECORDS SUMMARY | 2024-01-27 22:35 | External Medical Summary | Summary of Care ---
Author Name Unknown Organization [facility] Address [address] [place] [address] Phone [phone] Care Team Providers Care Business Transformation Consultant Name Role Phone Uzair Blanc MD Primary Care Provider + Reason for Referral * Evaluate & Treat - Unlimited Visits (Within 3 days (urgent)) - Authorized Specialty Diagnoses / Procedures Referred By Contkerrie hobson Referred To Contact HOME CARE / Home Care Diagnoses Glioblastoma (HCC) Vasogenic edema (HCC) Pat Renteria MD [address] [place] [address] Referral ID Status Reason Start Date Expiration Date Visits Requested Visits Authorized [id number] Authorized Specialty Services Required 01/25/2024 999 999 Question Answer Referral Priority Within 3 days (urgent) Where should this appointment be scheduled? Rosie Sanon Documentation of Mbwp-[id number] Encounter Addendum Patient Name: Ar Lucero I certify that this patient is under my care and that I, or a nurse practitioner or physician's certified surgical tech/first assistant working with me, had a asjp-wr-hjbc encounter that meets the physician bcnd-kg-qspx encounter requirements with this patient on: 01/21/24 The encounter with the patient was in whole, or in part, for the following medical condition, which is the primary reason for home health care (List medical condition): Glioblastoma I certify that, based on my findings, the following services are medically necessary home health services: Nursing To provide the following care/treatments: (All hospitalists not following the patient after discharge should complete this section): assessment, vs, medication management Primary Care Physician to follow home care plan of care after discharge: PCP My clinical findings support the need for the above services because: patient started on steroid related to symptoms from glioblastoma Further, I certify that my clinical findings support that this patient is homebound (i.e. Absences from home require considerable and taxing effort and are for medical reasons or mandaen services or infrequently or of short duration when for other reason) because: Weakness , seizures Physician Signature: Date of Signature: Physician Printed Name: Anamaria Vee RN Reason for Visit * Reason Onset Date Comments Follow Up 01/25/2024 Encounter Details Date Type Department Care Team (Late st Contact Info) Description 01/25/2024 Telephone Hematology Oncology [facility] [address] [place] [address] Pat Renteria MD [address] [place] [address] Follow Up Allergies Active Allergy Reactions Criticality Noted Date Comments Amoxicillin Other (Please comment) Low 05/13/2019 headache documented as of this encounter (statuses as of 01/25/2024) Medications Medication Sig Dispensed Refills Start Date End Date Status acetaminophen (TYLENOL) 500 MG Tablet Take 1 Tab by mouth every 6 hours. 60 Tab 0 05/17/2019 Active Additional Information Patient taking differently: 500-1,000 [id number] PRN, Reported on 10/21/2022 Loratadine 10 MG [...] mRNA, LNP-s, No Pre serve, 2-Dose Series ([facility]) 09/24/2021,01/09/2021,12/18/2020 Pneumococcal Conjugate Vacc, 13 Valent (Prevnar) [...] encounter Miscellaneous Notes * Telephone Encounter - Anamaria Vee, LEEANN - 01/25/2024 9:49 AM EDT Order placed ----- Message from Lo Rahman LCSW sent at 01/25/2024 8:31 AM EDT ----- Regarding: Add Nursing? Good Morning. Following Raghavendra Lucero. Do you want to add nursing to the home health in place? I'm thinking he could benefit from it. If so, could you drop an order in the chart for home health for nursing? You don't need a 178 for me. Thanks. Lo documented in this encounter Plan of Treatment Upcoming Encounters Date Type Department Care Team (Late st Contact Info) Description 01/26/2024 3:45 PM EDT Pharmacy Pharmacy Hematology Oncology [facility], [place] [address] [place] [address] [facility] Hem/Onc [facility] [place] [address] 01/28/2024 1:00 PM EDT Appointment Interventional Radiology [facility], [facility] 1st [address] [place] [phone] 02/11/2024 11:30 AM EDT Office Visit Podiatry [address] [place] [phone] Travon Underwood, CLARENCE [address] [place] [address] 02/16/2024 11:20 AM EDT Laboratory Laboratory Hem/Onc [place] [address] [place] [phone] [place], [facility] [place] [address] 02/16/2024 12:00 PM EDT Office Visit Hematology Oncology [facility] [address] [place] [address] Fide Bush PA-C [address] [place] [address] 02/16/2024 1:00 PM EDT Hem/Onc Treatment Hematology Oncology [facility], [place] [address] [place] [address] [place], Chair 1 Hem/Onc [address] [place] [address] 03/01/2024 2:20 PM EDT Office Visit Neurology, [place] [address] [place] [address] Shellie Gregory PA-C [address] [place] [address] 04/19/2024 12:00 PM EDT Office Visit General Internal Medicine [facility] [address] [facility] [place] [address] Uzair Blanc MD [address] [facility] [place] [address] 04/24/2024 3:15 PM EDT Hospital Encounter MRI, [address] [id number] 05/01/2024 9:45 AM EDT Office Visit Neurosurgery, [address] [address] Clinic, Brain Tumor Multidisciplinary [facility] [address], [place] [phone] Scheduled Referrals Name Type Priority Associated Diagnoses Orde r Schedule HOME HEALTH REFERRAL OP Referral Within 3 days (urgent) Glioblastoma (HCC) Vasogenic edema (HCC) Ordered: 01/25/2024 Health Maintenance Due Date Last Done Comments [...] this encounter Medical Devices Implanted Type Area Clinical Asst Device Identifier Shelf Expiration Date Model / Serial / Lot Graft Lyoplant 7.5x7.5cm 3x3 - [id number] - [id number] Implanted:Qty : 1 on 05/15/2019 by Patel Villavicencio MD at OR [facility] Right: Head B KIMBLE : AESCULAP [id number] 02/01/2024 [id number] / [id number] / [id number] Cover Bur Hol Ti Lo 17 421.527 - [id number] Implanted:Qty : 1 on 05/15/2019 by Patel Villavicencio MD at OR [facility] Right: Head SYNTHES MAXILLOFACIAL 421.527 / / Description:from set Plate Ti Lo Pro Str 2h 421.502 - [id number] Implanted:Qty : 2 on 05/15/2019 by Patel Villavicencio MD at [place] [facility] Right: Head SYNTHES MAXILLOFACIAL 421.502 / / Description:from set Screw 4mm Ti Low Pro Sdrill - [id number] Implanted:Qty : 8 on 05/15/2019 by Patel Villavicencio MD at OR [facility] Explanted:Qty : 4 on 08/12/2023 by Patel Villavicencio MD at OR [facility] Right: Head SYNTHES MAXILLOFACIAL 400.834E / / Graft Lyoplant 5.0x5.0cm 2x2 - [id number] - [id number] Implanted:Qty : 1 on 08/12/2023 by Patel Villavicencio MD at OR [facility] B KIMBLE : BJ [id number] 01/02/2028 10 [id number] / [id number] / [id number] Screw 1.5x4mm Axs Sd Un3 - [id number] Implanted:Qty : 4 on 08/12/2023 by Patel Villavicencio MD at [place] [facility] Right: Head ESTRELLA : CRANIOMAXILLOFACIAL [id number] / / Description:Lot number and e xpiration date not supplied. documented as of this encounter Visit Diagnoses Diagnosis Glioblastoma (HCC)- Primary Malignant neoplasm of brain, unspecified site Vasogenic edema (HCC) documented in this encounter Advance Directives Latest [...] Care Agent (per Health Care Power of Middle Card Tender document) [email or web address] Care Teams Business Transformation Consultant Relationship Specialty Start Date End Date Uzair Blanc MD [address] [place] [address], [place] [address] PCP - General Internal Medicine 08/25/19 documented as of this encounter
--- OUTSIDE RECORDS SUMMARY | 2024-01-27 22:35 | External Medical Summary | Summary of Care ---
Author Name Unknown Organization [facility] Address [address] [place] [address] Phone [phone] Care Team Providers Care Tire Mold Tester Name Role Phone Uzair Blanc MD Primary Care Provider + Reason for Visit * Reason Comments Medication Management Encounter Details Date Type Department Care Team ([facility] st Contact Info) Description 01/26/2024 3:45 PM EDT Pharmacy Pharmacy Hematology Oncology [facility] [address] [place], [place] [phone] [facility], [facility] Hem/Onc [address], [place] [phone] Glioblastoma (HCC)* Allergies Active Allergy Reactions Criticality Noted Date Comments Amoxicillin Other (Please comment) Low 05/13/2019 headache documented as of this encounter (statuses as of 01/26/2024) Medications Medication Sig Dispensed Refills Start Date End Date Status acetaminophen (TYLENOL) 500 MG Tablet Take 1 Tab by mouth every 6 hours. 60 Tab 0 05/17/2019 Active Additional Information Patient taking differently: 500-1,000 [id number] PRN, Reported on 10/21/2022 Loratadine 10 MG [...] as of this encounter (statuses as of 01/26/2024) Active Problems Problem Noted Date Diagnosed Date [...] as of this encounter (statuses as of 01/26/2024) Resolved Problems Problem Noted Date Diagnosed Date Resolved Date Stage 3 chronic kidney disease 08/12/2023 08/19/2023 Stage 3 chronic kidney disease 12/23/2019 12/27/2019 Gait instability 12/23/2019 12/04/2021 Benign hypertension with CKD (chronic kidney disease) stage III 08/25/2019 11/27/2019 Seizure-like activity 06/01/20192021 Essential hypertension 05/13/201908/25 HLD (hyperlipidemia) 05/13/2019 019 Class 1 obesity in adult 05/13/2019 documented as of this encounter (statuses as of 01/26/2024) Immunizations Name Administration Dates Next Due COVID-19 mRNA, LNP-s, No Pre serve, 2-Dose Series ([employer]) 09/24/2021,01/09/2021,12/18/2020 Pneumococcal Conjugate Vacc, 13 Valent (Prevnar) [...] No 05/13/2019 documented as of this encounter Progress Notes * Nuria Thurston, [facility] - 01/26/2024 1:38 PM EDT MEDICATION THERAPY MANAGEMENT LOMUSTINE TREATMENT STATUS NOTE Ar Nic [phone] Patient Phone Numbers Mobile, Jessica [phone] [facility] shipments may take > 1 day to [place] Communication: Chart review Treatment: Medication: Lomustine (Gleostine, CCNU) Indication/Staging/Diagnosis Code: Glioblastoma, WHO Grade IV, C71.9 Dose Basis: 90 mg/m2 - 90 mg/m2 * 2.07 m2 (01/17/24) = 186.3 mg - Per BELOB trial, max dose of 160 mg for Cycle 1 - Will readdress dosing for Cycles 2+ depending on how patient tolerates Cycle 1 - may be able to increase to 190 mg (max dose 200 mg) Dose: 160 mg (max dose for Cycle 1) Administration: empty stomach at bedtime Start Date: TBD Primary Bullard Machine Operator/Oncologist: Dr. Renteria Additional Therapy: Bevacizumab Supportive Care Meds: Ondansetron Docusate Prophylactic Meds: PJP ppx for ALC < 0.5 Cycle Dates C1 TBD C2 TBD Review of therapy: Line of therapy: Second Previous therapy: Resection 05/15/19 Temodar and RT 06/19/19-07/28/19 Adjuvant Temodar (~24 cycles) 09/11/19-06/27/21 Temodar and RT 09/06/23-09/17/23 Reviewed dosage prescribed for appropriateness (based on indication, hepatic function,renal function, etc): no changes 90 mg/m2 * 2.07 m2 (01/17/24) = 186.3 mg Per BELOB trial, max dose of 160 mg for Cycle 1 Will readdress dosing for Cycles 2+ depending on how patient tolerates Cycle 1 - may be able to increase to 190 mg (max dose 200 mg) Are appropriate supportive care medications prescribed? No, ondansetron and docusate refills to be sent via [place] plan Are appropriate prophylactic medications prescribed? No, ondansetron and docusate refills to be sent via [place] plan Have baseline labs/tests been obtained? Yes Has hepatitis B screening been completed? Yes Potential drug-drug drug-herbal, drug-food, drug-disease interactions: Yes Lomustine and phenytoin: Category C Drug Interaction: Monitor Therapy: Fosphenytoin-Phenytoin may diminish the therapeutic effect of Lomustine Recommendation: Monitor for decreased lomustine effectiveness if combined with fosphenytoin or phenytoin. [place] prescribing information does not mention this potential interaction while [place] labeling recommends avoidance of this combination Action: As above The Hematology/Oncology Oral Chemotherapy Clinic will assess medication compliance at each patient encounter Assessment and Plan: Per discussion with Dr. Renteria, can forgo PFTs for now and obtain in future if patient has any s/sxof pulmonary toxicity Education and handouts provided in [facility] on 01/16 Yes/no Date Action Taken [place] plan entered? Yes 01/17/24 Consent completed? Yes 01/17/24 During [facility] Intro/med rec completed? Precert completed? Yes 01/18/24 Test claim completed? Yes 01/18/24 Copay $1120.20 Financial assistance needed? Yes Physician signature? Rx released? Education completed? Noted that patient is over income for pharmacy brianne Proceeding with shadowgraph operator's assistance through [employer] Will follow up in 2 days patient assistance f/u [facility] will contact patient once med shipped/received to complete medication education Please refer to initial intake note for detailed review of regimen and patient- specific education points Nuria Thurston PharmD, BCOP Ambulatory Clinical Pharmacist | Oral Chemotherapy Clinic 01/26/2024, 1:40 PM Time Spent on Encounter: 6 - 10 minutes Encounter Group: Neuro-Oncology Encounter Interventions Item Category: Oral Chemotherapy Lomustine Problem/Rationale: Cost/Insurnce Issues Insurance - Other high copay Pharmacist Intervention(s): Patient assistance follow-up Magnitude of Intervention: Monitoring with direction (Level 1) documented in this encounter Plan of Treatment Upcoming Encounters Date Type Department Care Team (Late st Contact Info) Description 01/28/2024 1:00 PM EDT Hospital Encounter [facility] 1[facility] [address] [place] [address] 01/28/2024 3:45 PM EDT Pharmacy Pharmacy Hematology Oncology [address] [facility], [facility] Hem/Onc [address] [place] [address] 02/11/2024 11:30 AM EDT Office Visit Podiatry [facility], [address] [place] [phone] Travon Underwood, CLARENCE [facility] [place] [address] 02/16/2024 11:20 AM EDT Laboratory Laboratory Hem/Onc [address] [phone] [place], [facility] Med4 [address] [place] [address] 02/16/2024 12:00 PM EDT Office Visit Hematology Oncology [facility] [place] [address] [place] [phone] Fide Bush PA-C [address], [place] [phone] 02/16/2024 1:00 PM EDT Hem/Onc Treatment Hematology Oncology [facility] [place] [address] [place], [place] [phone] [place], 1 Hem/Onc [address] [place] [address] 03/01/2024 2:20 PM EDT Office Visit Neurology, [place] [address] [place] [phone] Shellie Gregory PA-C [address], [place] [phone] 04/19/2024 12:00 PM EDT Office Visit General Internal Medicine [facility] [address] [facility] [place] [address] Uzair Blanc MD [address] [place] [address] 04/24/2024 3:15 PM EDT Hospital Encounter MRI, [place] [address] [place], [place] [phone] 05/01/2024 9:45 AM EDT Office Visit Neurosurgery, [place] [address] [place], [place] [phone] Clinic, Brain Tumor Multidisciplinary [address] [place], [place] [address] Health Maintenance Due Date Last Done Comments [...] this encounter Medical Devices Implanted Type Area Inbound Sales Consultant Device Identifier Shelf Expiration Date Model / Serial / Lot Graft Lyoplant 7.5x7.5cm 3x3 - [id number] - [id number] Implanted:Qty : 1 on 05/15/2019 by Patel Villavicencio MD at [place] [facility] Right: Head B KIMBLE : [id number] 02/01/2024 [id number] / [id number] / [id number] Cover Bur Hol Ti Lo 17 421.527 - [id number] Implanted:Qty : 1 on 05/15/2019 by Patel Villavicencio MD at OR [facility] Right: Head SYNTHES MAXILLOFACIAL 421.527 / / Description:from set Plate Ti Lo Pro Str 2h 421.502 - [id number] Implanted:Qty : 2 on 05/15/2019 by Patel Villavicencio MD at OR [facility] Right: Head SYNTHES MAXILLOFACIAL 421.502 / / Description:from set Screw 4mm Ti Low Pro Sdrill - [id number] Implanted:Qty : 8 on 05/15/2019 by Patel Villavicencio MD at OR [facility] Explanted:Qty : 4 on 08/12/2023 by Patel Villavicencio MD at OR [facility] Right: Head SYNTHES MAXILLOFACIAL 400.834E / / Graft Lyoplant 5.0x5.0cm 2x2 - [id number] - [id number] Implanted:Qty : 1 on 08/12/2023 by Patel Villavicencio MD at OR [facility] B KIMBLE : AESCULAP [id number] 01/02/2028 10 [id number] / [id number] / [id number] Screw 1.5x4mm Axs Sd Un3 - [id number] Implanted:Qty : 4 on 08/12/2023 by Patel Villavicencio MD at [place] [facility] Right: Head ESTRELLA : CRANIOMAXILLOFACIAL [id number] / / Description:Lot number and e xpiration date not supplied. documented as of this encounter Visit Diagnoses Diagnosis Glioblastoma (HCC)- Primary Malignant neoplasm of brain, unspecified site documented in this encounter Advance Directives Latest [...] Care Agent (per Health Care Power of Building Coordinator document) [email or web address] Care Teams Tire Mold Tester Relationship Specialty Start Date End Date Uzair Blanc MD [address] [place] [address], [place] [address] PCP - General Internal Medicine 08/25/19 documented as of this encounter"
--- OUTSIDE RECORDS SUMMARY | 2024-01-27 22:35 | External Medical Summary | Summary of Care ---
Author Name Unknown Organization [facility] Address [address] [place] [address] Phone [phone] Care Team Providers Care Senior Lead Developer Name Role Phone Uzair Blanc MD Primary Care Provider + Encounter Details Date Type Department Care Team (Late st Contact Info) Description 01/21/2024 4:30 PM EDT Telemedicine Hematology Oncology [facility] [address] [place] [address] Pat Renteria MD [address] [place] [address] Glioblastoma (HCC)* Allergies Active Allergy Reactions Criticality Noted Date Comments Amoxicillin Other (Please comment) Low 05/13/2019 headache documented as of this encounter (statuses as of 01/26/2024) Medications Medication Sig Dispensed Refills Start Date End Date Status acetaminophen (TYLENOL) 500 MG Tablet Take 1 Tab by mouth every 6 hours. 60 Tab 0 05/17/2019 Active Additional Information Patient taking differently: 500-1,000 [id number] PRN, Reported on 10/21/2022 Loratadine 10 MG [...] mRNA, LNP-s, No Pre serve, 2-Dose Series ([employer]) 09/24/2021,01/09/2021,12/18/2020 Pneumococcal Conjugate Vacc, 13 Valent [...] as of this encounter Progress Notes * Pat Renteria MD - 01/21/2024 4:46 PM EDT Patient location: HOME. I was in a hospital or clinic location. After connecting through My Point...Exactlyo,patient was verified with two unique identifiers. Patient (or authorized legal contracts representative) was then informed that this was a Telemedicine visit and being conducted confidentially over secure lines. Methods to assure confidentiality were taken. Patient acknowledged consent and understanding of pr ivacy and security of the Telemedicine visit. The patient agreed to participate. Follow Up Visit Note: Hematology/Oncology Patient Name: Ar Lucero Date of : 1950 Patient Encounter: HEMATOLOGY ONCOLOGY [facility] C/c: pt with glioblastoma, followup Interval History: He has had rec falls, he fell and went to ER--apparently Was sent home after CT head. I called him and he started steroids on 01/19/24 Since then he has had 2 more falls, slid off the bed and fell. He did hit his head on the floor thesecond time. He seems to lean towards the left and fell, but his was able to help him and break the fall. He is on Dex 4mg po 3 times a day, they have noticed some improvements with that. He is able now topick his left leg and arm somewhat. Jessica feels they are unable to come for any visits/appts due to his physical state and she can't bring him to appts wo assistance. REVIEW OF SYSTEMS: pertinent positives/negatives as noted above. Past Medical History: Diagnosis Date Benign hypertension with CKD (chronic kidney disease) stage III ([facility]) 08/25/2019 Gait instability 12/23/2019 Glioblastoma ([facility]) 05/18/2019 Hearing loss, bilateral 08/25/2019 Hypertension goal BP (blood pressure) < 140/90 08/25/2019 Mixed hyperlipidemia 08/25/2019 RAMOS on CPAP 05/13/2019 Current Outpatient Medications Medication Sig Dispense Refill acetaminophen (TYLENOL) 500 MG Tablet Take 1 Tab by mouth every 6 hours. (Patient taking differently: Take 1-2 Tablets by mouth every 6 hours as needed.) 60 Tab 0 Loratadine 10 MG Oral Capsule Take 1 Capsule by mouth in the morning. As needed for sinuses . Triamcinolone Acetonide 0.1 % External Cream (Aristocort) Apply topically to affected area 2 times a day. To affected area. 15 g 5 clonazePAM 0.5 MG Oral Tablet (KlonoPIN) Take 0.5 Tablets by mouth daily as needed for Other (focalseizures). 10 Tablet 1 Atorvastatin Calcium 10 MG Oral Tablet (Lipitor) Take 1 Tablet by mouth in the morning. 90 Tablet 3 CPAP every night at bedtime. Phenytoin Sodium Extended 100 MG Oral Capsule (Dilantin) TAKE 1 AT 8AM, 1 AT 2:30PM, 2 AT 9:30PM - NO MEALS WITHIN 30 MINUTES OF DOSE 360 Capsule 1 Sertraline HCl 50 MG Oral Tablet (Zoloft) Take 1 Tablet by mouth in the morning. 90 Tablet 3 levETIRAcetam 1000 MG Oral Tablet TAKE 1 TABLET BY MOUTH IN THE MORNING AND BEFORE BEDTIME 180 Tablet 1 Lacosamide 200 MG Oral Tablet (Vimpat) TAKE 1 TABLET BY MOUTH IN THE MORNING AND BEFORE BEDTIME 180Tablet 1 levETIRAcetam 500 MG Oral Tablet (Keppra) TAKE 1 TABLET BY MOUTH IN THE MORNING AND 1 TABLET BEFOREBEDTIME. TAKE WITH 1000 MG TABLET FOR TOTAL OF 1500 MG TWICE DAILY.. 180 Tablet 1 dexAMETHasone 4 MG Oral Tablet (Decadron) Take 1 tab by mouth three times a day for 3 days, Then take 1 tab by mouth twice a day for 5 days, then take one tab in the morning and half tab in afternoonfor 5 days, then half tab in morning and half tab in afternoon 30 Tablet 0 Omeprazole 20 MG Oral Capsule Delayed Release (PriLOSEC) Take 2 Capsules by mouth in the morning. 30 Capsule 0 No current facility-administered medications for this visit. Social History Tobacco Use Smoking status: Never Smokeless tobacco: Never Vaping Use Vaping Use: Never used Substance Use Topics Alcohol use: Not Currently Alcohol/week: 21.0 standard drinks of alcohol Types: 21 12 oz of beer per week Drug use: Never Review of patient's allergies indicates: Allergen Reactions Amoxicillin Other (Please comment) headache PHYSICAL EXAMINATION: Remote visit, limited exam LABS; Reviewed in EMR Results for orders placed or performed in visit on 01/12/24 CBC Result Value Ref Range WBC 4.16 4.00 - 10.80 K/uL RBC 5.02 4.50 - 5.25 M/uL HGB 16.8 14.0 - 16.8 g/dL HCT 49.6 (H) 40.0 - 48.4 % MCV 98.8 82.0 - 99.5 fL MCH 33.5 27.0 - 34.0 pg MCHC 33.9 32.0 - 36.0 g/dL RDW 14.1 11.5 - 15.5 % PLT 168 140 - 400 K/uL MPV 8.6 6.6 - 11.1 fL Results for orders placed or performed in visit on 01/12/24 COMPREHENSIVE METABOLIC PANEL Result Value Ref Range BUN 14 6 - 20 mg/dL Creatinine 1.1 0.6 - 1.2 mg/dL Estimated Glomerular Filtration Rate 70 >=60 mL/min Sodium 139 135 - 146 mmol/L Potassium 4.6 3.5 - 5.1 mmol/L Chloride 105 98 - 107 mmol/L CO2 25 22 - 32 mmol/L Anion Gap 9 7 - 15 mmol/L Glucose 98 70 - 120 mg/dL Albumin 4.2 3.8 - 5.0 g/dL AST 23 10 - 50 U/L Alkaline Phosphatase 123 35 - 130 U/L Bilirubin, Total 0.4 <=1.2 mg/dL Calcium 9.6 8.4 - 10.2 mg/dL Protein 7.3 6.0 - 8.3 g/dL ALT 6 (L) 10 - 50 U/L PATHOLOGY/IMAGING AND PROCEDURES: Reviewed in EMR ASSESSMENT and PLAN: Ar Lucero is a 73 year old male with glioblastoma, [facility] CC[facility]/Zahraa Since then symptomatic worsening, falls. We reviewed s/s, had started steroids with some improvement Discussed s/s mgt, GOC etc again I asked him to hold off on Optune for now d/t fall risk C.w dex, instructions for taper reviewed We discussed starting Zahraa wo port, but pt wants to wait and get mediport Will rTC to review further The patient requires a bed height different than a fixed height hospital bed to permit transfer to chair, wheelchair or standing position. The patient requires frequent changes in body position or has an immediate need for a change in body position. I believe that he would benefit immensely with home physical therapy and also home nursing to checkvitals and for labs. He will plan to keep his appts as scheduled. We discussed how to take the steroids again. I also d/w SW/CM about HH etc, appreciate their help I spent over 30mins on the date of service in the care of this patient including preparation, delivery and documentation of the care provided. Excluding any time spent in the performance of separately billed services. Pat Renteria MD Hematology Oncology [address] [address] documented in this encounter Plan of Treatment Upcoming Encounters Date Type Department Care Team (Latest Contact Info) Description 01/26/2024 3:45 PM EDT Pharmacy Pharmacy Hematology Oncology [facility], [address] [address] [facility] Hem/Onc [address] [place] [facility] [address] Glioblastoma (HCC)* 01/28/2024 1:00 PM EDT Hospital Encounter Interventional Radiology [facility], Jane [place] [address]st [address] [place] [phone] 01/28/2024 3:45 PM EDT Pharmacy Pharmacy Hematology Oncology [facility] [address] [place] [address] [facility], [facility] Hem/Onc [address] [place] [address] 02/11/2024 11:30 AM EDT Office Visit Podiatry [address] [place] [phone] Travon Underwood, [place] [address] [place] [address] 02/16/2024 11:20 AM EDT Laboratory Laboratory Hem/Onc [place] [address] [place] [phone] [place], Lab Med [address] [place] [address] 02/16/2024 12:00 PM EDT Office Visit Hematology Oncology [facility] [address] [place] [address] Fide Bush PA-C [address] [place], [place] [phone] 02/16/2024 1:00 PM EDT Hem/Onc Treatment Hematology Oncology [facility] [address] [place] [address] Neo, Chair 1 Hem/Onc [address] [place] [address] 03/01/2024 2:20 PM EDT Office Visit Neurology, [place] [address] [place] [address] Shellie Gregory PA-C [address] [place] [address] 04/19/2024 12:00 PM EDT Office Visit General Internal Medicine [facility] Jackie [place] [address] [facility] [place] [address] Uzair Blanc MD [address] [facility] [place] [address] 04/24/2024 3:15 PM EDT Hospital Encounter MRI, [place] [address] [place] [address] 05/01/2024 9:45 AM EDT Office Visit Neurosurgery, [place] [address] [place] [address] Clinic, Brain Tumor Multidisciplinar [address] [place] [address] Health Maintenance Due Date Last Done Comments [...] Ratio 07/02/2025 07/02/2022, 08/05 Cologuard 01/11/2026 01/11/2023, 12/2022, 01/04/2023 Colorectal Cancer Screening 01/11/2026 Lipid [...] this encounter Medical Devices Implanted Type Area Predator Control Trapper Device Identifier Shelf Expiration Date Model / Serial / Lot Graft Lyoplant 7.5x7.5cm 3x3 - [id number] - [id number] Implanted:Qty : 1 on 05/15/2019 by Patel Villavicencio MD at OR [facility] Right: Head B KIMBLE : [id number] 02/01/2024 [id number] / [id number] / [id number] Cover Bur Hol Ti Lo 17 421.527 - [id number] Implanted:Qty : 1 on 05/15/2019 by Patel Villavicencio MD at OR [facility] Right: Head SYNTHES MAXILLOFACIAL 421.527 / / Description:from set Plate Ti Lo Pro Str 2h 421.502 - [id number] Implanted:Qty : 2 on 05/15/2019 by Patel Villavicencio MD at OR [facility] Right: Head [facility] MAXILLOFACIAL 421.502 / / Description:from set Screw 4mm Ti Low Pro Sdrill - [id number] Implanted:Qty : 8 on 05/15/2019 by Patel Villavicencio MD at OR [facility] Explanted:Qty : 4 on 08/12/2023 by Patel Villavicencio MD at OR [facility] Right: Head SYNTHES MAXILLOFACIAL 400.834E / / Graft Lyoplant 5.0x5.0cm 2x2 - [id number] - [id number] Implanted:Qty : 1 on 08/12/2023 by Patel Villavicencio MD at OR [facility] B KIMBLE : BJ [id number] 01/02/2028 10 [id number] / [id number] / [id number] Screw 1.5x4mm Axs Sd Un3 - [id number] Implanted:Qty : 4 on 08/12/2023 by Patel Villavicencio MD at OR [facility] Right: Head ESTRELLA : CRANIOMAXILLOFACIAL [id number] / / Description:Lot number and e xpiration date not supplied. documented as of this encounter Visit Diagnoses Diagnosis Glioblastoma (HCC)- Primary Malignant neoplasm of brain, unspecified site Glioblastoma (HCC)- Primary Malignant neoplasm of brain, [...] Care Agent (per Health Care Power of Market Stall Vendor document) [email or web address] Care Teams Senior Lead Developer Relationship Specialty Start Date End Date Uzair Blanc MD [address] [place] [address] PCP - General Internal Medicine 08/25/19 documented as of this encounter
--- OUTSIDE RECORDS SUMMARY | 2024-01-27 22:35 | External Medical Summary | Summary of Care ---
Author Name Unknown Organization [facility] Address [address] [place] [address] Phone [phone] Care Team Providers Care Molding Supervisor Name Role Phone Uzair Blanc MD Primary Care Provider + Reason for Visit * Reason Comments Medication Management Encounter Details Date Type Department Care Team ([facility] st Contact Info) Description 01/21/2024 1:45 PM EDT Pharmacy Pharmacy Hematology Oncology [facility] [address] [place], [place] [phone] [facility] Hem/Onc [address] [place], [place] [phone] Glioblastoma (HCC)* Allergies Active Allergy Reactions Criticality Noted Date Comments Amoxicillin Other (Please comment) Low 05/13/2019 headache documented as of this encounter (statuses as of 01/21/2024) Medications Medication Sig Dispensed Refills Start Date End Date Status acetaminophen (TYLENOL) 500 MG Tablet Take 1 Tab by mouth every 6 hours. 60 Tab 0 05/17/2019 Active Additional Information Patient taking differently: 500-1,000 [id number] PRN, Reported on 10/21/2022 Loratadine 10 MG [...] mRNA, LNP-s, No Pre serve, 2-Dose Series ([employer]) 09/24/2021,01/09/2021,12/18/2020 Pneumococcal Conjugate Vacc, 13 Valent (Prevnar) [...] as of this encounter Progress Notes * Fide Hernandez, chemical engineering intern - 01/21/2024 12:00 PM EDT MEDICATION THERAPY MANAGEMENT LOMUSTINE INITIAL INTAKE NOTE Ar Lucero [phone] Patient Phone Numbers Mobile, Jessica [phone] UPS shipments may take > 1 day to [place] Communication: Chart Review Treatment: Medication: Lomustine (Gleostine, CCNU) Indication/Staging/Diagnosis Code: [...] stomach at bedtime Start Date: TBD Primary Credit Control Manager/Oncologist: Dr. Renteria Additional Therapy: Bevacizumab Supportive Care [...] and docusate refills to be sent via [place] plan Are appropriate prophylactic medications prescribed? No, ondansetron and docusate refills to be sent via [place] plan Have baseline labs/tests been obtained? Yes Has hepatitis B screening been completed? Yes Potential drug-drug drug-herbal, drug-food, drug-disease interactions: Yes Lomustine and phenytoin: Category C Drug Interaction: Monitor Therapy: Fosphenytoin-Phenytoin may diminish the therapeutic effect of Lomustine Recommendation: Monitor for decreased lomustine effectiveness if combined with fosphenytoin or phenytoin. [place] prescribing information does not mention this potential interaction while [place] labeling recommends avoidance of this combination Action: As above The Hematology/Oncology Oral Chemotherapy Clinic will assess medication compliance at each patient encounter Assessment and Plan: sent to Dr. Renteria to discuss if patient should complete PFTs with lomustine start ADDENDUM: Can forgo PFTs for now and obtain in future if patient has any s/sx of pulmonary toxicity Education and handouts provided in [facility] on 01/16 Yes/no Date Action Taken [place] plan entered? Yes 01/17/24 Consent completed? Yes 01/17/24 During [facility] Intro/med rec completed? Precert completed? Yes 01/18/24 Test claim completed? Yes 01/18/24 Copay $1120.20 Financial assistance needed? Yes Patient within income limits for pharmacy brianne, per 01/19 TE to be faxing income documents. Once received [facility] to send for approval Physician signature? Rx released? Education completed? Will follow up in 1 days for pharmacy brianne updates [facility] will contact patient once med shipped/received to complete medication education Please refer to initial intake note for detailed review of regimen and patient- specific education points Fide Hernandez Technology Analyst III [facility] Oral Chemotherapy Clinic 01/21/2024 12:04 PM Time Spent on Encounter: < 5 minutes Encounter Group: Neuro-Oncology Encounter Interventions Item Category: Oral Chemotherapy Lomustine Problem/Rationale: Cost/Insurnce Issues Insurance - Other high copay Pharmacist Intervention(s): Patient assistance follow-up Magnitude of Intervention: Monitoring with no interventions (Level 0) documented in this encounter Plan of Treatment Upcoming Encounters Date Type Department Care Team (Late st Contact Info) Description 01/21/2024 4:30 PM EDT Telemedicine Hematology Oncology [facility] [address] [place] [address] Pat Renteria MD [address] [place] [address] 01/24/2024 3:45 PM EDT Pharmacy Pharmacy Hematology Oncology [facility] [address] [place] [address] [facility] Hem/Onc [address] [place] [address] 01/28/2024 1:00 PM EDT Appointment [facility] 1[facility] [address] [place] [address] 02/11/2024 11:30 AM EDT Office Visit Podiatry [address] [place] [phone] Travon Underwood, DPM [address] [place] [address] 02/16/2024 11:20 AM EDT Laboratory Laboratory Hem/Onc [facility] [place] [address] [place] [phone] [place] [address] [place], [place] [phone] 02/16/2024 12:00 PM EDT Office Visit Hematology Oncology [facility], [place] [address] [place] [address] Fide Bush PA-C [address] [place], [place] [phone] 02/16/2024 1:00 PM EDT Hem/Onc Treatment Hematology Oncology [facility], [place] [address] [place] [address] Neo, Chair 1 Hem/Onc [facility] [address] [place], [place] [phone] 03/01/2024 2:20 PM EDT Office Visit Neurology, [place] [address] [place] [phone] Shellie Gregory PA-C [address] [place], [place] [address] 04/19/2024 12:00 PM EDT Office Visit General Internal Medicine [facility] [place] [address] [place], [place] [address] Uzair Blanc MD [address] [place], [place] [address] 04/24/2024 3:15 PM EDT Appointment MRI, [address] [address] 05/01/2024 9:45 AM EDT Office Visit Neurosurgery, [place] [address] [place] [address] Clinic, Brain Tumor Multidisciplinary [address] [place] [address] Health Maintenance Due Date Last Done Comments [...] this encounter Medical Devices Implanted Type Area Rope Laying Machine Operator Device Identifier Shelf Expiration Date Model / Serial / Lot Graft Lyoplant 7.5x7.5cm 3x3 - [id number] - [id number] Implanted:Qty : 1 on 05/15/2019 by Patel Villavicencio MD at OR [facility] Right: Head B KIMBLE : KATELAWolf [id number] 02/01/2024 [id number] / [id number] / [id number] Cover Bur Hol Ti Lo 17 421.527 - [id number] Implanted:Qty : 1 on 05/15/2019 by Patel Villavicencio MD at OR [facility] Right: Head SYNTHES MAXILLOFACIAL 421.527 / / Description:from set Plate Ti Lo Pro Str 2h 421.502 - [id number] Implanted:Qty : 2 on 05/15/2019 by Patel Villavicencio MD at OR [facility] Right: Head SYNTHES MAXILLOFACIAL 421.502 / / Description:from set Screw 4mm Ti Low Pro Sdrill - [id number] Implanted:Qty : 8 on 05/15/2019 by Patel Villavicencio MD at OR [facility] Explanted:Qty : 4 on 08/12/2023 by Patel Villavicencio MD at OR [facility] Right: Head SYNTHES MAXILLOFACIAL 400.834E / / Graft Lyoplant 5.0x5.0cm 2x2 - [id number] - [id number] Implanted:Qty : 1 on 08/12/2023 by Patel Villavicencio MD at OR [facility] B KIMBLE : BJ [id number] 01/02/2028 10 [id number] / [id number] / [id number] Screw 1.5x4mm Axs Sd Un3 - [id number] Implanted:Qty : 4 on 08/12/2023 by Patel Villavicencio MD at OR [facility] Right: Head ESTRELLA : CRANIOMAXILLOFACIAL [id number] / / Description:Lot number and e xpiration [...] Care Agent (per Health Care Power of Labor Expediter document) [email or web address] Care Teams Molding Supervisor Relationship Specialty Start Date End Date Uzair Blanc MD [address] [place] [address] PCP - General Internal Medicine 08/25/19 documented as of this encounter
--- OUTSIDE RECORDS SUMMARY | 2024-01-27 22:35 | External Medical Summary | Summary of Care ---
Author Name Unknown Organization [facility] Address [address] [place] [address] Phone [phone] Care Team Providers Care Golf Stud Riveter Name Role Phone Uzair Blanc MD Primary Care Provider + Reason for Visit * Reason Comments Medication Management Encounter Details Date Type Department Care Team ([facility] st Contact Info) Description 01/24/2024 3:45 PM EDT Pharmacy Pharmacy Hematology Oncology [facility] [address] [place], [place] [phone] [facility] Hem/Onc [address] [place], [place] [phone] Glioblastoma (HCC)* Allergies Active Allergy Reactions Criticality Noted Date Comments Amoxicillin Other (Please comment) Low 05/13/2019 headache documented as of this encounter (statuses as of 01/24/2024) Medications Medication Sig Dispensed Refills Start Date End Date Status acetaminophen (TYLENOL) 500 MG Tablet Take 1 Tab by mouth every 6 hours. 60 Tab 0 05/17/2019 Active Additional Information Patient taking differently: 500-1,000 [id number] PRN, Reported on 10/21/2022 Loratadine 10 MG [...] mRNA, LNP-s, No Pre serve, 2-Dose Series (Floored) 09/24/2021,01/09/2021,12/18/2020 Pneumococcal Conjugate Vacc, 13 Valent (Prevnar) [...] this encounter Progress Notes * Nuria Thurston, [facility] - 01/24/2024 10:57 AM EDT MEDICATION THERAPY MANAGEMENT LOMUSTINE TREATMENT STATUS NOTE Ar Nic [phone] Patient Phone Numbers Mobile, Jessica [phone] UPS shipments may take > 1 day [...] stomach at bedtime Start Date: TBD Primary Postal Superintendent/Oncologist: Dr. Renteria Additional Therapy: Bevacizumab Supportive Care [...] and docusate refills to be sent via [facility] plan Are appropriate prophylactic medications prescribed? No, ondansetron and docusate refills to be sent via [facility] plan Have baseline labs/tests been obtained? Yes Has hepatitis B screening been completed? Yes Potential drug-drug drug-herbal, drug-food, drug-disease interactions: Yes Lomustine and phenytoin: Category C Drug Interaction: Monitor Therapy: Fosphenytoin-Phenytoin may diminish the therapeutic effect of Lomustine Recommendation: Monitor for decreased lomustine effectiveness if combined with fosphenytoin or phenytoin. [place] prescribing information does not mention this potential interaction while [place] labeling recommends avoidance of this combination Action: As above The Hematology/Oncology Oral Chemotherapy Clinic will assess medication compliance at each patient encounter Assessment and Plan: Per discussion with Dr. Renteria, can forgo PFTs for now and obtain in future if patient has any s/sxof pulmonary toxicity Education and handouts provided in [facility] on 01/16 Yes/no Date Action Taken [facility] plan entered? Yes 01/17/24 Consent completed? Yes 01/17/24 During [facility] Intro/med rec completed? Precert completed? Yes 01/18/24 Test claim completed? Yes 01/18/24 Copay $1120.20 Financial assistance needed? Yes Patient within income limits for pharmacy [facility], per 01/19 TE to be faxing income documents. Once received [facility] to send for approval Physician signature? Rx released? Education completed? Will follow up in 2 days for pharmacy brianne updates [facility] will contact patient once med shipped/received to complete medication education Please refer to initial intake note for detailed review of regimen and patient- specific education points Nuria Thurston, PharmD, BCOP Ambulatory Clinical Pharmacist | Oral Chemotherapy Clinic [facility] 01/24/2024, 10:59 AM Time Spent on Encounter: 6 - 10 [...] 3:45 PM EDT Pharmacy Pharmacy Hematology Oncology [address] [address] [facility] Hem/Onc [address] [place] [address] 01/28/2024 1:00 PM EDT Appointment Interventional Radiology [facility] 1st Floor [address] [place] [address] 02/11/2024 11:30 AM EDT Office Visit Podiatry [facility] [address] [place] [address] Travon Underwood, [facility] [place] [address] 02/16/2024 11:20 AM EDT Laboratory Laboratory Hem/Onc [address] [place] [phone] [place], Lab Med4 [address] [place], [place] [phone] 02/16/2024 12:00 PM EDT Office Visit Hematology Oncology [facility], [place] [address] [place] [phone] Fide Bush PA-C [address], [place] [phone] 02/16/2024 1:00 PM EDT Hem/Onc Treatment Hematology Oncology [facility], [place] [address] [place], [place] [phone] Neo, Chair 1 Hem/Onc [address] [place], [place] [phone] 03/01/2024 2:20 PM EDT Office Visit Neurology, [place] [address] [place] [phone] Shellie Gregory PA-C [address] [place], [place] [phone] 04/19/2024 12:00 PM EDT Office Visit General Internal Medicine [facility] [address] [place] [address] Uzair Blanc MD [address] [place] [address] 04/24/2024 3:15 PM EDT Hospital Encounter MRI, [place] [address] [place], [place] [phone] 05/01/2024 9:45 AM EDT Office Visit Neurosurgery, [address] [phone] Clinic, Brain Tumor Multidisciplinary [address], [place] [phone] Health Maintenance Due Date Last Done Comments [...] this encounter Medical Devices Implanted Type Area Distillery Supervisor Device Identifier Shelf Expiration Date Model / Serial / Lot Graft Lyoplant 7.5x7.5cm 3x3 - [id number] - [id number] Implanted:Qty : 1 on 05/15/2019 by Patel Villavicencio MD at [facility] Right: Head B KIMBLE : AESCULAP [id number] 02/01/2024 [id number] / [id number] / [id number] Cover Bur Hol Ti Lo 17 421.527 - [id number] Implanted:Qty : 1 on 05/15/2019 by Patel Villavicencio MD at [place] [facility] Right: Head SYNTHES MAXILLOFACIAL 421.527 / / Description:from set Plate Ti Lo Pro Str 2h 421.502 - [id number] Implanted:Qty : 2 on 05/15/2019 by Patel Villavicencio MD at [place] [facility] Right: Head SYNTHES MAXILLOFACIAL 421.502 / / Description:from set Screw 4mm Ti Low Pro Sdrill - [id number] Implanted:Qty : 8 on 05/15/2019 by Patel Villavicencio MD at [place] [facility] Explanted:Qty : 4 on 08/12/2023 by Patel Villavicencio MD at [place] [facility] Right: Head SYNTHES MAXILLOFACIAL 400.834E / / Graft Lyoplant 5.0x5.0cm 2x2 - [id number] - [id number] Implanted:Qty : 1 on 08/12/2023 by Patel Villavicencio MD at [place] [facility] B KIMBLE : AESCULAP [id number] 01/02/2028 10 [id number] / [id number] / [id number] Screw 1.5x4mm Axs Sd Un3 - [id number] Implanted:Qty : 4 on 08/12/2023 by Patel Villavicencio MD at [place] [facility] Right: Head ESTRELLA : CRANIOMAXILLOFACIAL [id number] / / Description:Lot number and e xpiration [...] Care Agent (per Health Care Power of Mix Chemist document) [email or web address] Care Teams Golf Stud Riveter Relationship Specialty Start Date End Date Uzair Blanc MD [address] [place] [address] PCP - General Internal Medicine 08/25/19 documented as of this encounter"
--- OUTSIDE RECORDS SUMMARY | 2024-01-27 22:35 | External Medical Summary | Summary of Care ---
Author Name Unknown Organization [facility] Address [address] [place] [address] Phone [phone] Care Team Providers Care Residence Life Coordinator Name Role Phone Uzair Blanc MD Primary Care Provider + Encounter Details Date Type Department Care Team (Latest Contact Info) Description 01/18/2024 9:40 PM EDT - 01/18/2024 9:44 PM EDT Hospital Encounter Radiology [facility] [address] [place] [address] Arrived Discharge Disposition: Home - [...] Active Additional Information Patient taking differently: 500-1,000 ihTiodH4Q PRN, Reported on 10/21/2022 Loratadine 10 MG [...] PM EDT Pharmacy Pharmacy Hematology Oncology [address] [address] [facility], [facility] Hem/Onc [facility] [place] [address] 01/21/2024 4:30 PM EDT Telemedicine Hematology Oncology [address] [phone] Pat Renteria MD [address] [place] [address] 01/28/2024 1:00 PM EDT Appointment Interventional Radiology [facility] 1st Floor [address] [place] [address] 02/11/2024 11:30 AM EDT Office Visit Podiatry [facility], [address] [place] [address] Travon Underwood DPM [facility] [place] [address] 02/16/2024 11:20 AM EDT Laboratory Laboratory Hem/Onc [address] [phone] [place], Lab Med4 [address] [place] [address] 02/16/2024 12:00 PM EDT Office Visit Hematology Oncology [facility] [place] [address] [place] [phone] Fide Bush PA-C [address] [place], [place] [phone] 02/16/2024 1:00 PM EDT Hem/Onc Treatment Hematology Oncology [facility] [place] [address], [place] [phone] Neo, Chair 1 Hem/Onc [facility] [place] [address] 03/01/2024 2:20 PM EDT Office Visit Neurology, [address] [phone] Shellie Gregory PA-C [address] [place], [place] [phone] 04/19/2024 12:00 PM EDT Office Visit General Internal Medicine [facility] 200 [facility] [place] [address] Uzair Blanc MD 200 [place] [address] 04/24/2024 3:15 PM EDT Appointment MRI, [place] [address] [place], [place] [phone] 05/01/2024 9:45 AM EDT Office Visit Neurosurgery, [address] [phone] Clinic, Brain Tumor Multidisciplinary [facility] [address] [place], [place] [phone] Health Maintenance Due Date Last Done Comments [...] this encounter Medical Devices Implanted Type Area Spud Grader Device Identifier Shelf Expiration Date Model / Serial / Lot Graft Lyoplant 7.5x7.5cm 3x3 - [id number] - [id number] Implanted:Qty : 1 on 05/15/2019 by Patel Villavicencio MD [place] [facility] Right: Head B KIMBLE : [id number] 02/01/2024 [id number] / [id number] / [id number] Cover Bur Hol Ti Lo 17 421.527 - [id number] Implanted:Qty : 1 on 05/15/2019 by Patel Villavicencio MD at [place] [facility] Right: Head SYNTHES MAXILLOFACIAL 421.527 / / Description:from set Plate Ti Lo Pro Str 2h 421.502 - [id number] Implanted:Qty : 2 on 05/15/2019 by Patel Villavicencio MD at [place] [facility] Right: Head SYNTHES MAXILLOFACIAL 421.502 / / Description:from set Screw 4mm Ti Low Pro Sdrill - [id number] Implanted:Qty : 8 on 05/15/2019 by Patel Villavicencio MD at [place] [facility] Explanted:Qty : 4 on 08/12/2023 by Patel Villavicencio MD at [place] [facility] Right: Head SYNTHES MAXILLOFACIAL 400.834E / / Graft Lyoplant 5.0x5.0cm 2x2 - [id number] - [id number] Implanted:Qty : 1 on 08/12/2023 by Patel Villavicencio MD at [place] [facility] B KIMBLE : AESCULAP [id number] 01/02/2028 10 [id number] / [id number] / [id number] Screw 1.5x4mm Axs Sd Un3 - [id number] Implanted:Qty : 4 on 08/12/2023 by Patel Villavicencio MD at [place] [facility] Right: Head ESTRELLA : CRANIOMAXILLOFACIAL [id number] / / Description:Lot number and e xpiration date not supplied. documented as of this encounter Procedures Procedure Name Priority Date/Time Associated Diagnosis Comments RADIOLOGY EXAM - CT (IMAGES ONLY, NO REPORT) Routine 01/18/2024 9:40 PM EDT documented in this encounter Results * RADIOLOGY EXAM - CT (IMAGES ONLY, NO REPORT) (01/18/2024 9:40 PM EDT) 01/18/2024 9:39 PM EDT Narrative Scheduling, Silent - 01/20/2024 7:40 PM EDT This is an imaging study not interpreted or resulted by a [email or web address] or [email or web address] contracted radiologist. Uzair Blanc MD RAD CT [...] Care Agent (per Health Care Power of Digital Solution Architect document) [email or web address] Care Teams Residence Life Coordinator Relationship Specialty Start Date End Date Uzair Blanc MD [address] [place] [address] PCP - General Internal Medicine 08/25/19 documented as of this encounter
--- OUTSIDE RECORDS SUMMARY | 2024-01-27 22:36 | External Medical Summary | Summary of Care ---
Author Name Unknown Organization [facility] Address [address] [place] [address] Phone [phone] Care Team Providers Care Debt Recovery Officer Name Role Phone Uzair Blanc MD Primary Care Provider + Reason for Referral * Social Care (Within 10 days (routine)) - Authorized Specialty Diagnoses / Procedures Referred By Contac t Referred To Contact Percolator Operator Diagnoses Glioblastoma (HCC) Pat Renteria MD [address] [place] [address] Referral ID Status Reason Start Date Expiration Date Visits Requested Visits Authorized [id number] Authorized Specialty Services Required 01/20/2024 999 999 Question Answer Role Director Of Primary Director Of Primary Referral Reason Complex Oncology, Frail Elderly Referral Priority Within 10 days (routine) Where should this appointment be scheduled? Rosie Comments Is patient being transitioned from [facility] to Complex Case Management? No * Social Care (Within 3 days (urgent)) - Authorized Specialty Diagnoses / Procedures Referred By Contac t Referred To Contact Percolator Operator Diagnoses Glioblastoma (HCC) Pat Renteria MD [address] [place] [address] Referral ID Status Reason Start Date Expiration Date Visits Requested Visits Authorized [id number] Authorized Specialty Services Required 01/20/2024 999 999 Question Answer Role Quirk Sander Referring Reason: Coordinate DME (Durable Medical Equipment) Referral Priority Within 3 days (urgent) Where should this appointment be scheduled? Rosie Comments Is patient being transitioned from [facility] to Complex Case Management? No ----- Message from Lo Rahman LCSW sent at 01/20/2024 11:48 AM EDT ----- Regarding: Order for transport chair Hi. Talked to Jessica Nic. She wants to review all the home health choices and will then pick an agency. Raghavendra had a near fall again but they caught him and slid him to the floor. He required a fall team from ambulance [facility] to pick him back up. Jessica is banking on the new medication restoring Raghavendra's functionality on the left but he is still a high fall risk. Can someone place an order for a transport chair? This could help him at home as well as in the community. Lo Reason for Visit * Reason Onset Date Comments Follow Up 01/20/2024 Transport chair, SW referral Encounter Details Date Type Department Care Team (Late st Contact Info) Description 01/20/2024 Telephone Hematology Oncology [facility] [address] [place] [address] Pat Renteria MD [address] [place] [address] Follow Up (Transport chair, referral ) Allergies Active Allergy Reactions Criticality Noted Date Comments Amoxicillin Other (Please comment) Low 05/13/2019 headache documented as of this encounter (statuses as of 01/20/2024) Medications Medication Sig Dispensed Refills Start Date End Date Status acetaminophen (TYLENOL) 500 MG Tablet Take 1 Tab by mouth every 6 hours. 60 Tab 0 05/17/2019 Active Additional Information Patient taking differently: 500-1,000 swAmjoV5W PRN, Reported on 10/21/2022 Loratadine 10 MG [...] as of this encounter (statuses as of 01/20/2024) Active Problems Problem Noted Date Diagnosed Date [...] as of this encounter (statuses as of 01/20/2024) Resolved Problems Problem Noted Date Diagnosed Date Resolved Date Stage 3 chronic kidney disease 08/12/2023 08/19/2023 Stage 3 chronic kidney disease 12/23/2019 12/27/2019 Gait instability 12/23/2019 12/04/2021 Benign hypertension with CKD (chronic kidney disease) stage III 08/25/2019 11/27/2019 Seizure-like activity 06/01/20192021 Essential hypertension 05/13/201908/25 HLD (hyperlipidemia) 05/13/2019 019 Class 1 obesity in adult 05/13/2019 documented as of this encounter (statuses as of 01/20/2024) Immunizations Name Administration Dates Next Due COVID-19 mRNA, LNP-s, No Pre serve, 2-Dose Series ([employer]) 09/24/2021,01/09/2021,12/18/2020 Pneumococcal Conjugate Vacc, 13 Valent (Prevnar) [...] Answer Date Recorded PHQ Adult Total Score 0 06/24/2022 Hunger Vital Sign Answer Date Recorded Within the past 12 months, y ou worried that your food would run out before you got the money to buy more. Never true 08/29/20 23 Within the past 12 months, t he food you bought just didn't last and you didn't have money to get more. Never true 08/29/2023 Sex and Gender Information Value Date Recorded [...] Miscellaneous Notes * Telephone Encounter - Anamaria Vee RN - 01/20/2024 4:41 PM EDT Order placed for population health DME with below message requesting transport chair- ---- Message from Lo Rahman LCSW sent at 01/20/2024 11:48 AM EDT ----- Regarding: Order for transport chair Hi. Talked to Jessica Lucero. She wants to review all the home health choices and will then pick anagency. Raghavendra had a near fall again but they caught him and slid him to the floor. He required a fallteam from ambulance company to pick him back up. Jessica is banking on the new medication restoring Raghavendra's functionality on the left but he is still a high fall risk. Can someone place an order for a transport chair? This could help him at home as well as in the community. Lo documented in this encounter Plan of Treatment Upcoming Encounters Date Type Department Care Team (Late st Contact Info) Description 01/21/2024 1:45 PM EDT Pharmacy Pharmacy Hematology Oncology [facility] [address] [address] [facility] Hem/Onc [address] [place] [address] 01/28/2024 1:00 PM EDT Appointment Interventional Radiology [facility]iano 1st Floor [address] [place] [phone] 02/11/2024 11:30 AM EDT Office Visit Podiatry [facility], [address] [place] [phone] Travon Underwood, [facility] [address] [place] [address] 02/16/2024 11:20 AM EDT Laboratory Laboratory Hem/Onc [address] [phone] [place], Lab Med4 [facility] [address] [place], [place] [phone] 02/16/2024 12:00 PM EDT Office Visit Hematology Oncology [facility] [address] [place] [phone] Fide Bush PA-C [address] [place], [place] [phone] 02/16/2024 1:00 PM EDT Hem/Onc Treatment Hematology Oncology [address] [phone] [place], Chair 1 Hem/Onc [address] [place] [address], [place] [address] 03/01/2024 2:20 PM EDT Office Visit Neurology, [place] [address] [place] [phone] Shellie Gregory PA-C [address] [place] [address] 04/24/2024 3:15 PM EDT Appointment MRI, [place] [address] [place], [place] [address] 05/01/2024 9:45 AM EDT Office Visit Neurosurgery, [place] [address] [place] [address] Clinic, Brain Tumor Multidisciplinary [address] [place] [address] Scheduled Referrals Name Type Priority Associated Diagnoses Orde r Schedule POPULATION HEALTH REFERRAL OP Referral Within 3 days (urgent) Glioblastoma (HCC) Ordered: 01/20/2024 POPULATION HEALTH REFERRAL OP Referral Within 10 days (routine) Glioblastoma (HCC) Ordered: 01/20/2024 Health Maintenance Due Date Last Done Comments Fecal Occult Blood Test 1994 Sigmoidoscopy 1994 DTaP,Tdap,and Td Vaccines (1 - Tdap) 04/04/2009 04/03/2009 Zoster Vaccines (2 of 3) 04/27/2014 03/02/2014 Colonoscopy 03/03/2023 03/03/2013 COVID-19 Vaccine ( - 2022- season) 2023 09/24/2021, 01/09/2021, 12/18/2020 GFR 01/11/2025 01/12/2024, 12/03, 12/16/2023, Additional history [...] this encounter Medical Devices Implanted Type Area Product Responsibility Liaison Device Identifier Shelf Expiration Date Model / Serial / Lot Graft Lyoplant 7.5x7.5cm 3x3 - [id number] - [id number] Implanted:Qty : 1 on 05/15/2019 by Patel Villavicencio MD [place] [facility] Right: Head B KIMBLE : [id number] 02/01/2024 [id number] / [id number] / [id number] Cover Bur Hol Ti Lo 17 421.527 - [id number] Implanted:Qty : 1 on 05/15/2019 by Patel Villavicencio MD at [place] [facility] Right: Head SYNTHES MAXILLOFACIAL 421.527 / / Description:from set Plate Ti Lo Pro Str 2h 421.502 - [id number] Implanted:Qty : 2 on 05/15/2019 by Patel Villavicencio MD [place] [facility] Right: Head SYNTHES MAXILLOFACIAL 421.502 / / Description:from set Screw 4mm Ti Low Pro Sdrill - [id number] Implanted:Qty : 8 on 05/15/2019 by Patel Villavicencio MD at [place] [facility] Explanted:Qty : 4 on 08/12/2023 by Patel Villavicencio MD at [place] [facility] Right: Head SYNTHES MAXILLOFACIAL 400.834E / / Graft Lyoplant 5.0x5.0cm 2x2 - [id number] - [id number] Implanted:Qty : 1 on 08/12/2023 by Patel Villavicencio MD at [place] [facility] B KIMBLE : AESCULAWolf [id number] 01/02/2028 10 [id number] / [id number] / [id number] Screw 1.5x4mm Axs Sd Un3 - [id number] Implanted:Qty : 4 on 08/12/2023 by Patel Villavicencio MD at [facility] Right: Head ESTRELLA : CRANIOMAXILLOFACIAL [id number] / / Description:Lot number and e xpiration [...] of Advance Directives occurred with: Not Discussed Care Teams Debt Recovery Officer Relationship Specialty Start Date End Date Uzair Blanc MD [address] [facility] [place] [address] PCP - General Internal Medicine 08/25/19 documented as of this encounter
--- OUTSIDE RECORDS SUMMARY | 2024-01-27 22:36 | External Medical Summary | Summary of Care ---
Author Name Unknown Organization [facility] Address [address] [place] [address] Phone [phone] Care Team Providers Care Mechanical Facilities Technician Name Role Phone Uzair Blanc MD Primary Care Provider + Reason for Visit * Reason Onset Date Comments Operations Intelligence Documentation 01/20/2024 Encounter Details Date Type Department Care Team ([facility] st Contact Info) Description 01/20/2024 Telephone [facility] [address] [place] [address] Lo Rahman, [facility] Operations Intelligence Documentation Allergies Active Allergy Reactions Criticality Noted Date Comments Amoxicillin Other (Please comment) Low 05/13/2019 headache documented as of this encounter (statuses as of 01/20/2024) Medications Medication Sig Dispensed Refills Start Date End Date Status acetaminophen (TYLENOL) 500 MG Tablet Take 1 Tab by mouth every 6 hours. 60 Tab 0 05/17/2019 Active Additional Information Patient taking differently: 500-1,000 [id number] PRN, Reported on 10/21/2022 Loratadine 10 MG [...] mRNA, LNP-s, No Pre serve, 2-Dose Series ([employer]) 09/24/2021,01/09/2021,12/18/2020 Pneumococcal Conjugate Vacc, 13 Valent (Prevnar) [...] Notes * Telephone Encounter - Lo Rahman, [employer] - 01/20/2024 8:40 AM EDT 01/20/2024 8:41 AM Order received for home health for PT. Spoke with Jessica Lucero at length. Jessica is understandably concerned about falls. Raghavendra fell on 01/17 and went to [facility] ED. Yesterday, he had a near fall.Jessica is agreeable to home health. She is unfamiliar with any home health agencies in her area andwould like a list. Will send a list of home health agencies to Jessica thru the portal. Jessica will consider and get back to me. Await response from family. Discussed possible need for DME. Patient needs a transport chair. Will request an order. Suggested a bedside commode and possibly a hospital bed. Jessica does not have the room for a hospital bed but will think about the bedside commode. It is Jessica's understanding that the new medication prescribed will result in an improvement in Raghavendra's ability to move his left arm and leg. I am not certain if or when this will happen but, in the interim, the patient is a high fall risk. I have mentioned the possibility of using a non-medical home care agency to be available during the day when her sons are not available. This will not be covered by insurance and they will need to pay privately. Jessica will let me know if they are interested. Diagnosis: Glioblastoma. S/P craniotomy for excision of brain tumor on 08/12/24 Medical Team PCP: Uzair Blanc MD Medical Oncologist: Yessenia Renteria MD Radiation Oncologist: Previously saw Thomas Vogt MD Surgeon: Patel Villavicencio MD Insurance Primary: Medicare A and B Secondary: [employer] Prescription Coverage: AARP Pharmacy: [facility] Marital Status: to Jessica Lucero Children: Two sons who live locally. They come before and after work to help get their father to the bathroom. Advanced Directives Living Will: No Power Of Special Services Agent: Home Environment: Physical Address: [address] [place] [phone] Patient's Residence: One [place] house Steps To Enter Home: 2 thru garage Steps To Second Floor: N/A Bathroom: Has walk-in shower Bedroom:One floor home but sleeping in recliner Resides With: Community Supports History of Home Health:None History of Rehab: Went to outpatient rehab Other Community Supports: None Durable Medical Equipment in the Home: C-Pap, Rolling Walker Vendor: [employer] Transportation:Does not drive. drives. Employment: Retired. Financial Concerns: None Services provided include: Care Coordination Durable Medical Equipment Referrals/Orders Follow-up Calls and Visits Home Health and Hospice Referrals documented in this encounter Plan of Treatment Upcoming Encounters Date Type Department Care Team (Late st Contact Info) Description 01/21/2024 1:45 PM EDT Pharmacy Pharmacy Hematology Oncology [facility] [address] [place] [address] [facility] [place] Hem/Onc [address] [place] [address] 01/28/2024 1:00 PM EDT Appointment Interventional Radiology [facility], [place] [address] [place] [address] 02/11/2024 11:30 AM EDT Office Visit Podiatry [address] [place] [address] Travon Underwood, DPM [address] [place] [address] 02/16/2024 11:20 AM EDT Laboratory Laboratory Hem/Onc [address] [phone] [place], Lab Med4 [facility] [place] [address] 02/16/2024 12:00 PM EDT Office Visit Hematology Oncology [facility], [place] [address] [place] [phone] Fide Bush PA-C [facility] [place] [address] 02/16/2024 1:00 PM EDT Hem/Onc Treatment Hematology Oncology [facility], [place] [address] [place] [address] Neo, Chair 1 Hem/Onc [address], [place] [phone] 03/01/2024 2:20 PM EDT Office Visit Neurology, [address] [phone] Shellie Gregory PA-C [address], [place] [phone] 04/24/2024 3:15 PM EDT Appointment MRI, [address] [place] [address] 05/01/2024 9:45 AM EDT Office Visit Neurosurgery, [place] [address] [place] [address] Clinic, Brain Tumor Multidisciplinary [address] [place] [address] Health Maintenance Due Date Last Done Comments [...] this encounter Medical Devices Implanted Type Area Home Visitor Device Identifier Shelf Expiration Date Model / Serial / Lot Graft Lyoplant 7.5x7.5cm 3x3 - [id number] - [id number] Implanted:Qty : 1 on 05/15/2019 by Patel Villavicencio MD at OR [facility] Right: Head B KIMBLE : [id number] 02/01/2024 [id number] / [id number] / [id number] Cover Bur Hol Ti Lo 17 421.527 - [id number] Implanted:Qty : 1 on 05/15/2019 by Patel Villavicecnio MD at OR [facility] Right: Head [employer]THES [employer]ILL[employer]IAL 421.527 / / Description:from set Plate Ti Lo Pro Str 2h 421.502 - [id number] Implanted:Qty : 2 on 05/15/2019 by Patel Villavicencio MD at OR [facility] Right: Head [employer] 421.502 / / Description:from set Screw 4mm Ti Low Pro Sdrill - [id number] Implanted:Qty : 8 on 05/15/2019 by Patel Villavicencio MD at OR [facility] Explanted:Qty : 4 on 08/12/2023 by Patel Villavicencio MD at OR [facility] Right: Head [employer] 400.834E / / Graft Lyoplant 5.0x5.0cm 2x2 - [id number] - [id number] Implanted:Qty : 1 on 08/12/2023 by Patel Villavicencio MD at OR [facility] B KIMBLE : [id number] 01/02/2028 10 [id number] / [id number] / [id number] Screw 1.5x4mm Axs Sd Un3 - [id number] Implanted:Qty : 4 on 08/12/2023 by Patel Villavicencio MD at OR [facility] Right: Head ESTRELLA : [id number] / / Description:Lot number and e xpiration [...] Directives occurred with: Not Discussed Care Teams Mechanical Facilities Technician Relationship Specialty Start Date End Date Uzair Blanc MD [address] [place] [address] PCP - General Internal Medicine 08/25/19 documented as of this encounter
--- OUTSIDE RECORDS SUMMARY | 2024-01-27 22:36 | External Medical Summary | Summary of Care ---
Author Name Unknown Organization [facility] Address [address] [place] [address] Phone [phone] Care Team Providers Care Milk Handler Name Role Phone Uzair Blanc MD Primary Care Provider + Reason for Referral * Evaluate & Treat - Unlimited Visits (Within 10 days (routine)) - Authorized Specialty Diagnoses / Procedures Referred By Contac t Referred To Contact [facility] Nurse / Home Care Diagnoses Glioblastoma (HCC) Left-sided weakness 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 syndromes with complex partial seizures, intractable, with status epilepticus (HCC) Uzair Blanc MD [address] [facility] [address] [facility] [facility] [address] Referral ID Status Reason Start Date Expiration Date Visits Requested Visits Authorized [id number] Authorized Specialty Services Required 01/19/[phone] Question Answer Referral Priority Within 10 days (routine) Where should this appointment be scheduled? [facility] Comments Referred for Medical Home Care Management Reason for Visit * Reason Comments Follow Up Encounter Details Date Type Department Care Team (Late st Contact Info) Description 01/19/2024 3:40 PM EDT Telemedicine General Internal Medicine State [place] [address] [place] [address] Uzair Blanc MD [address] [facility] [place] [address] Fall, initial encounter*; Moderate major depression (HCC); Glioblastoma (HCC); Left-sided weakness; 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 syndromes with complex partial seizures, intractable, with status epilepticus (HCC); Vasogenic edema (HCC); Hypertension goal BP (blood pressure) < 140/90; Rib pain on left side Allergies Active Allergy Reactions Criticality Noted Date Comments Amoxicillin Other (Please comment) Low 05/13/2019 headache documented as of this encounter (statuses as of 01/21/2024) Medications Medication Sig Dispensed Refills Start Date End Date Status acetaminophen (TYLENOL) 500 MG Tablet Take 1 Tab by mouth every 6 hours. 60 Tab 0 05/17/2019 Active Additional Information Patient taking differently: 500-1,000 [id number] PRN, Reported on 10/21/2022 Loratadine 10 MG [...] Answer Date Recorded PHQ Adult Total Score 11 01/21/2024 Hunger Vital Sign Answer Date Recorded [...] as of this encounter Progress Notes * Uzair Blanc MD - 01/19/2024 3:55 PM EDT Chief Complaint Patient presents with Follow Up Patient location: HOME. I was in a hospital or clinic location. After connecting through [employer],patient was verified with two unique identifiers. Patient (or authorized legal footwear sales representative) was then informed that this was a Telemedicine visit and being conducted confidentially over secure lines. Methods to assure confidentiality were taken. Patient acknowledged consent and understanding of pr ivacy and security of the Telemedicine visit. The patient agreed to participate. SUBJECTIVE: Ar Lucero is a 73 year old male with PMH as below who presents for what was to be 6 month follow up for htn, glioblastoma, seizures, but was in ER last night. Slipped and fell on ceramic floor, couldn't get up. Has had issues moving left hand since surgery and left foot for past couple days. Did discuss with oncology, felt to be from edema, steroids called into today. He has some rib soreness, but no seizures, other falls. No cp, sob benjamin. ER was in contact with neurosurgery and oncology [facility] per 's report. No n/v/d. 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 Review of patient's allergies indicates: Allergen Reactions Amoxicillin Other (Please comment) headache Health Maintenance Due Topic Date Due DTaP,Tdap,and Td Vaccines (1 - Tdap) 04/04/2009 Zoster Vaccines (2 of 3) 04/27/2014 COVID-19 Vaccine (2022- season) 2023 ROS: CONSTITUTIONAL: No fevers, sweats, or chills EYE: No eye pain, redness, discharge PULMONARY: No recent change in breathing CARDIOVASCULAR: No chest pain, No paroxysmal nocturnal dyspnea, and No syncope GASTROINTESTINAL: No abdominal pain, No change in bowel habits, No significant heartburn, No significant change in appetite, No nausea, vomiting, diarrhea, or constipation, No hematemesis, No blood in stools or black tarry stools, No abdominal bloating or early satiety, and No dysphagia ALL OTHER SYSTEMS NEGATIVE I reviewed social, PMH, PSH, and family history and updated where needed. Social History Socioeconomic History Marital status: Spouse name: Not on file Number of children: 2 Years of education: Not on file Highest education level: Not on file Occupational History Occupation: retired - HVAC Tobacco Use Smoking status: Never Smokeless tobacco: Never Vaping Use Vaping Use: Never used Substance and Sexual Activity Alcohol use: Not Currently Alcohol/week: 21.0 standard drinks of alcohol Types: 21 12 oz of beer per week Drug use: Never Sexual activity: Not on file Other Topics Concern Not on file Social History Narrative Not on file Social Determinants of Health Financial Resource Strain: Not on file Food Insecurity: No Food Insecurity (08/29/2023) Hunger Vital Sign Worried About Running Out of Food in the Last Year: Never true Ran Out of Food in the Last Year: Never true Transportation Needs: Not on file Physical Activity: Not on file Stress: Not on file Social Connections: Not on file Intimate Partner Violence: Not on file Housing Stability: Not on file Past Medical History: Diagnosis Date Benign hypertension with CKD (chronic kidney disease) stage III (HCC) 08/25/2019 Gait instability 12/23/2019 Glioblastoma (HCC) 05/18/2019 Hearing loss, bilateral 08/25/2019 Hypertension goal BP (blood pressure) < 140/90 08/25/2019 Mixed hyperlipidemia 08/25/2019 RAMOS on CPAP 05/13/2019 Past Surgical History: Procedure Laterality Date AMPUTATION OF FINGER/THUMB Left 05/02/2009 MICROSURGERY ADD-ON Right 08/12/2023 MICROSURGICAL SURGERY REQUIRING MICROSCOPE LISTED SEPARATELY performed by Patel Villavicencio MD at OR [facility] REMOVE SUPRATENTORIAL BRAIN TUMOR Right 05/15/2019 CRANIOTOMY BONE FLAP EXCISION BRAIN TUMOR SUPRATENTORIAL performed by Patel Villavicencio MD at OR [facility] REMOVE SUPRATENTORIAL BRAIN TUMOR Right 08/12/2023 CRANIOTOMY BONE FLAP EXCISION BRAIN TUMOR SUPRATENTORIAL performed by Patel Villavicencio MD atOR [facility] SHOULDER ARTHROSCOPY/DEBRIDEMENT Left 02/01/1990 STEREOTACTIC CRANIAL INTRADURAL NAVIGATION Right 08/12/2023 STEREOTACTIC CRANIAL INTRADURAL NAVIGATION performed by Patel Villavicencio MD at OR [facility] Family History Problem Relation Age of Onset Hypertension Mother Heart attack Father OBJECTIVE: PHYSICAL EXAM: There were no vitals taken for this visit. General: alert, healthy, and no distress Head: Normocephalic, optune device on Eye Exam: conjunctiva are pink and non-injected, sclera clear Lungs: normal respiratory rate and rhythm Psych: normal affect, no flight of ideas or tangential thought, good eye contact, no pressured speech I reviewed last gfr, glucose 01/16/23 mri: 1. Slight interval improve DECREASE ment in the enhancement at the anterosuperior resection cavity margin involving right precentral gyrus with associated decreased rCBV. Similar right frontoparietalFLAIR hyperintensity and edema. Similar enhancement in the adjacent enhancing satellite lesions. 2. Similar evolving ischemic changes involving the right temporal and parietal lobes. 3. Multilevel degenerative changes of the cervical spine, most notable at C5-6 and C6-7 levels withmoderate to severe left neural foraminal narrowing, as described above. 01/18/24 ct head: 1. No acute intracranial abnormality. 2. Decreased attenuation of the white matter in the right frontal and parietal lobes increased from prior exam of 2021. However this has no mass-effect on the lateral ventricle and this is favored to not represent edema. Posttreatment changes would be most likely. 3. 2.5 cm low density area in the peripheral posterior right frontal lobe new from prior exam. 01/18/24 ct c spine: No acute findings in the cervical spine. ASSESSMENT: W19.XXXA Fall, initial encounter (primary encounter diagnosis) F32.1 Moderate major depression (HCC) C71.9 Glioblastoma (HCC) R53.1 Left-sided weakness G40.211 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 syndromes with complex partial seizures, intractable, with status epilepticus (HCC) G93.6 Vasogenic edema (HCC) I10 Hypertension goal BP (blood pressure) < 140/90 R07.81 Rib pain on left side PLAN: Fall, initial encounter (Primary) Likely mechanical with socks, slippery floor Will not move w/o assistance Follow Moderate major depression (HCC) Cont sertraline Glioblastoma (HCC) - MEDICAL HOME CASE MANAGEMENT REFERRAL OP Cont f/u oncology, neurosurgery, neurology Left-sided weakness - MEDICAL HOME CASE MANAGEMENT REFERRAL OP Was discussed with them and specialist in [place] today, felt to be from swelling Start steroids phillip Agree with home health, already ordered Will also get with case mgmt for aid Follow closely They will call if any issues/change To, is in a need of a lightweight wheelchair since he has a mobility limitation that severely impairs his ability to perform mobility related activities of daily living such as toileting, feeding, dressing, grooming, bathing. This limitation cannot be resolved with the use of a cane or walker. The patient's home provides adequate access between rooms, maneuvering space, and surfaces for use of the manual wheelchair that is provided in the home. The patient has a caregiver who is available, willing and able to provide assistance with wheelchair. Also needs hospital bed - The patient has a medical condition which requires positioning of the body in ways not feasible with an ordinary bed. The patient requires the head of the bed to be elevatedmore than 30 degrees most of the time due to risks for aspiration related to glioblastoma. 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 syndromes with complex partial seizures, intractable, with status epilepticus (HCC) - MEDICAL HOME CASE MANAGEMENT REFERRAL OP Cont med Vasogenic edema (HCC) Start steroids Hypertension goal BP (blood pressure) < 140/90 Follow readings in office Rib pain on left side Mentions rib pain on right side, feel "sore" will let me know if worsens or persistent, t/c x-ray Follow-up: Return in about 3 months (around 04/19/2024), or if symptoms worsen or fail to improve. |Check-out note: Ok for private Uzair Blanc MD documented in this encounter Nursing Notes * Sachi Burgos LPN - 01/19/2024 3:31 PM EDT Ar Lucero presents for 6 month recheck. Medications & HM reviewed. He was at the ED last night after a fall. He hit his head on the ceramic tile floor at home. He hada CT of his head and x-rays done. documented in this encounter Plan of Treatment Upcoming Encounters Date Type Department Care Team (Late st Contact Info) Description 01/21/2024 1:45 PM EDT Pharmacy Pharmacy Hematology Oncology [address] [address] [facility] Hem/Onc [address] [place] [address] 01/21/2024 4:30 PM EDT Telemedicine Hematology Oncology [address] [phone] Pat Renteria MD [facility] [address] [place], [place] [phone] 01/28/2024 1:00 PM EDT Appointment Interventional Radiology [facility], [facility] 1st Floor [facility] [place] [address] 02/11/2024 11:30 AM EDT Office Visit Podiatry [address] [place] [phone] Travon Underwood, [facility] [place], [place] [phone] 02/16/2024 11:20 AM EDT Laboratory Laboratory Hem/Onc [address] [phone] [place] [facility] [address] [place] [address] 02/16/2024 12:00 PM EDT Office Visit Hematology Oncology [address] [phone] Fide Bush PA-C [address] [place] [address] 02/16/2024 1:00 PM EDT Hem/Onc Treatment Hematology Oncology [facility], [place] [address] [place] [address] [place], Chair 1 Hem/Onc [facility] [place], [place] [phone] 03/01/2024 2:20 PM EDT Office Visit Neurology, [place] [address] [place] [phone] Shellie Gregory PA-C [address] [place], [place] [phone] 04/19/2024 12:00 PM EDT Office Visit General Internal Medicine [facility] [place] [address] [facility] [place] [address] Uzair Blanc MD [address] [place] [address] 04/24/2024 3:15 PM EDT Appointment MRI, [address] [id number] 05/01/2024 9:45 AM EDT Office Visit Neurosurgery, [address] [phone] Clinic, Brain Tumor Multidisciplinary [facility] [address] [place], [place] [phone] Scheduled Referrals Name Type Priority Associated Diagnoses Orde r Schedule MEDICAL HOME CASE MANAGEMENT REFERRAL OP Referral Within 10 days (routine) Glioblastoma (HCC) Left-sided weakness 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 syndromes with complex partial seizures, intractable, with status epilepticus (HCC) Ordered: 01/19/2024 Health Maintenance Due Date Last Done Comments Fecal Occult Blood Test 1994 Sigmoidoscopy 1994 DTaP,Tdap,and Td Vaccines (1 - Tdap) 04/04/2009 04/03/2009 Zoster Vaccines (2 of 3) 04/27/2014 03/02/2014 Colonoscopy 03/03/2023 03/03/2013 COVID-19 Vaccine ( - season) 2023 09/24/2021, 01/09/2021, 12/18/2020 Depression, [...] this encounter Medical Devices Implanted Type Area Company Controller Device Identifier Shelf Expiration Date Model / Serial / Lot Graft Lyoplant 7.5x7.5cm 3x3 - [id number] - [id number] Implanted:Qty : 1 on 05/15/2019 by Patel Villavicencio MD at OR [facility] Right: Head B KIMBLE : BJ [id number] 02/01/2024 [id number] / [id number] / [id number] Cover Bur Hol Ti Lo 17 421.527 - [id number] Implanted:Qty : 1 on 05/15/2019 by Patel Villavicencio MD at OR [facility] Right: Head SYNTHES MAXILLOFACIAL 421.527 / / Description:from set Plate Ti Lo Pro Str 2h 421.502 - [id number] Implanted:Qty : 2 on 05/15/2019 by Patel Villavicencio MD at OR [facility] Right: Head SYNTHES MAXILLOFACIAL 421.502 / / Description:from set Screw 4mm Ti Low Pro Sdrill - [id number] Implanted:Qty : 8 on 05/15/2019 by Patel Villavicencio MD at OR [facility] Explanted:Qty : 4 on 08/12/2023 by Patel Villavicencio MD at OR [facility] Right: Head SYNTHES MAXILLOFACIAL 400.834E / / Graft Lyoplant 5.0x5.0cm 2x2 - [id number] - [id number] Implanted:Qty : 1 on 08/12/2023 by Patel Villavicencio MD at OR [facility] B KIMBLE : [id number] 01/02/2028 10 [id number] / [id number] / [id number] Screw 1.5x4mm Axs Sd Un3 - [id number] Implanted:Qty : 4 on 08/12/2023 by Patel Villavicencio MD at OR [facility] Right: Head ESTRELLA : CRANIOMAXILLOFACIAL [id number] / / Description:Lot number and e xpiration date not supplied. documented as of this encounter Visit Diagnoses Diagnosis Fall, initial encounter- Primary Moderate major depression (HCC) Major depressive disorder, single episode, moderate Glioblastoma (HCC) Malignant neoplasm of brain, unspecified site Left-sided weakness Muscle weakness (generalized) 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 syndromes with complex partial seizures, intractable, with status epilepticus (HCC) Vasogenic edema (HCC) Hypertension goal BP (blood pressure) < 140/90 Unspecified essential hypertension Rib pain on left side Chest pain, unspecified documented in this encounter Advance Directives Latest [...] Care Agent (per Health Care Power of Interior Horticulturist document) [email or web address] Care Teams Milk Handler Relationship Specialty Start Date End Date Uzair Blanc MD [address] [place] [address] PCP - General Internal Medicine 08/25/19 documented as of this encounter
--- OUTSIDE RECORDS SUMMARY | 2024-01-27 22:36 | External Medical Summary | Summary of Care ---
Author Name Unknown Organization [facility] Address [address] [place] [address] Phone [phone] Care Team Providers Care Supervisor Pile Driving Name Role Phone Uzair Blanc MD Primary Care Provider + Reason for Referral * Evaluate & Treat - Unlimited Visits (Within 10 days (routine)) - Authorized Specialty Diagnoses / Procedures Referred By Contac t Referred To Contact [facility] Nurse / Home Care Diagnoses Glioblastoma (HCC) Left-sided weakness 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 syndromes with complex partial seizures, intractable, with status epilepticus (HCC) Uzair Blanc MD [address] [place] [facility] [address] Referral ID Status Reason Start Date Expiration Date Visits Requested Visits Authorized [id number] Authorized Specialty Services Required 01/19/[phone] Question Answer Referral Priority Within 10 days (routine) Where should this appointment be scheduled? [facility] Comments Referred for Medical Home Care Management Reason for Visit * Reason Comments Follow Up Encounter Details Date Type Department Care Team (Late st Contact Info) Description 01/19/2024 3:40 PM EDT Telemedicine General Internal Medicine State [place] [address] [place] [address] Uzair Blanc MD 200 [facility] [place] [address] Fall, initial encounter*; Moderate major depression (HCC); [...] Active Additional Information Patient taking differently: 500-1,000 [id number] PRN, Reported on 10/21/2022 Loratadine 10 MG [...] hospital or clinic location. After connecting through walkbyideo,patient was verified with two unique identifiers. Patient (or authorized legal financial services representative) was then informed that this was [...] was in contact with neurosurgery and oncology [facility] per 's report. No n/v/d. Patient [...] performed by Patel Villavicencio MD at OR [facility] REMOVE SUPRATENTORIAL BRAIN TUMOR Right 05/15/2019 CRANIOTOMY BONE FLAP EXCISION BRAIN TUMOR SUPRATENTORIAL performed by Patel Villavicencio MD at OR [facility] REMOVE SUPRATENTORIAL BRAIN TUMOR Right 08/12/2023 CRANIOTOMY BONE FLAP EXCISION BRAIN TUMOR SUPRATENTORIAL performed by Patel Villavicencio MD at[facility] SHOULDER ARTHROSCOPY/DEBRIDEMENT Left 02/01/1990 STEREOTACTIC CRANIAL INTRADURAL NAVIGATION Right 08/12/2023 STEREOTACTIC CRANIAL INTRADURAL NAVIGATION performed by Patel Villavicencio MD at OR [facility] Family History Problem Relation Age of Onset [...] Was discussed with them and specialist in [place] today, felt to be from swelling Start [...] and able to provide assistance with wheelchair. 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 [...] 1:45 PM EDT Pharmacy Pharmacy Hematology Oncology [place] [address] [place] [address] [facility] Hem/Onc [facility] [place] [address] 01/28/2024 1:00 PM EDT Appointment Interventional Radiology [facility], [facility] 1st Floor [address] [place] [phone] 02/11/2024 11:30 AM EDT Office Visit Podiatry [address] [place] [phone] Travon Underwood, [facility] [address] [place] [address] 02/16/2024 11:20 AM EDT Laboratory Laboratory Hem/Onc [place] [address] [place] [phone] [place] [facility] [place] [address] 02/16/2024 12:00 PM EDT Office Visit Hematology Oncology [facility] [address] [place] [address] Fide Bush PA-C [address] [place] [address] 02/16/2024 1:00 PM EDT Hem/Onc Treatment Hematology Oncology [place] [address] [place] [address] [place], Chair 1 Hem/Onc [facility] [place] [address] 03/01/2024 2:20 PM EDT Office Visit Neurology, [place] [address] [place] [address] Shellie Gregory PA-C [address] [place] [address] 04/24/2024 3:15 PM EDT Appointment MRI, [place] [address] [address] [place], [place] [phone] 05/01/2024 9:45 AM EDT Office Visit Neurosurgery, [place] [address] [place], [place] [phone] Clinic, Brain Tumor Multidisciplinary [facility] [address] [place], [place] [phone] Scheduled Referrals Name Type Priority Associated Diagnoses [...] this encounter Medical Devices Implanted Type Area Room Service Waiter/Waitress Device Identifier Shelf Expiration Date Model / Serial / Lot Graft Lyoplant 7.5x7.5cm 3x3 - [id number] - [id number] Implanted:Qty : 1 on 05/15/2019 by Patel Villavicencio MD at OR [facility] Right: Head B KIMBLE : BJ [id number] 02/01/2024 [id number] / [id number] / [id number] Cover Bur Hol Ti Lo 17 421.527 - [id number] Implanted:Qty : 1 on 05/15/2019 by Patel Villavicencio MD at OR [facility] Right: Head SYNTHES MAXILLOFACIAL 421.527 / / Description:from set Plate Ti Lo Pro Str 2h 421.502 - [id number] Implanted:Qty : 2 on 05/15/2019 by Patel Villavicencio MD at OR [facility] Right: Head SYNTHES MAXILLOFACIAL 421.502 / / Description:from set Screw 4mm Ti Low Pro Sdrill - [id number] Implanted:Qty : 8 on 05/15/2019 by Patel Villavicencio MD at OR [facility] Explanted:Qty : 4 on 08/12/2023 by Patel Villavicencio MD at OR [facility] Right: Head SYNTHES MAXILLOFACIAL 400.834E / / Graft Lyoplant 5.0x5.0cm 2x2 - [id number] - [id number] Implanted:Qty : 1 on 08/12/2023 by Patel Villavicencio MD at OR [facility] B KIMBLE : [id number] 01/02/2028 10 [id number] / [id number] / [id number] Screw 1.5x4mm Axs Sd Un3 - [id number] Implanted:Qty : 4 on 08/12/2023 by Patel Villavicencio MD at OR [facility] Right: Head ESTRELLA : CRANIOMAXILLOFACIAL [id number] / / Description:Lot number and e xpiration [...] Directives occurred with: Not Discussed Care Teams Supervisor Pile Driving Relationship Specialty Start Date End Date Uzair Blanc MD [address] [place] [address], [place] [address] PCP - General Internal Medicine 08/25/19 documented as of this encounter
--- OUTSIDE RECORDS SUMMARY | 2024-01-27 22:36 | External Medical Summary | Summary of Care ---
Author Name Unknown Organization [facility] Address [address] [place] [address] Phone [phone] Care Team Providers Care Maint Mechanic Name Role Phone Uzair Blanc MD Primary Care Provider + Encounter Details Date Type Department Care Team (Late st Contact Info) Description 01/21/2024 Orders Only General Internal Medicine [facility] 200 [facility] [place] [id number] Uzair Blanc MD 200 [place] [address] Glioblastoma (HCC)*; 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 syndromes with complex partial seizures, intractable, with status epilepticus (HCC); Left-sided weakness Allergies Active Allergy Reactions Criticality Noted Date Comments Amoxicillin Other (Please comment) Low 05/13/2019 headache documented as of this encounter (statuses as of 01/21/2024) Medications Medication Sig Dispensed Refills Start Date End Date Status acetaminophen (TYLENOL) 500 MG Tablet Take 1 Tab by mouth every 6 hours. 60 Tab 0 05/17/2019 Active Additional Information Patient taking differently: 500-1,000 [id number] PRN, Reported on 10/21/2022 Loratadine 10 MG [...] mRNA, LNP-s, No Pre serve, 2-Dose Series ([employer]) 09/24/2021,01/09/2021,12/18/2020 Pneumococcal Conjugate Vacc, 13 Valent [...] 1:45 PM EDT Pharmacy Pharmacy Hematology Oncology [address] [address] [facility] Clinic Hem/Onc [facility] [place] [address] 01/21/2024 4:30 PM EDT Telemedicine Hematology Oncology [address] [address] Pat Renteria MD [facility] [place] [address] 01/28/2024 1:00 PM EDT Appointment Interventional Radiology [facility], Jane [place] 1st Floor [address] [place] [address] 02/11/2024 11:30 AM EDT Office Visit Podiatry [facility], [address] [place] [phone] Travon Underwood, [facility] [address] [place] [address] 02/16/2024 11:20 AM EDT Laboratory Laboratory Hem/Onc [facility], [place] [address] [place] [phone] [place], [facility] [place] [address] 02/16/2024 12:00 PM EDT Office Visit Hematology Oncology [facility], [place] [address] [place] [address] Fide Bush PA-C [address] [place] [address] 02/16/2024 1:00 PM EDT Hem/Onc Treatment Hematology Oncology [facility], [place] [address] [place] [address] Neo, Chair 1 Hem/Onc [address] [place] [address] 03/01/2024 2:20 PM EDT Office Visit Neurology, [place] [address] [place] [address] Shellie Gregory PA-C [address] [place] [address] 04/19/2024 12:00 PM EDT Office Visit General Internal Medicine [facility] [place] 200 [facility], [place] [phone] Uzair Blanc MD 200 [place] [address] 04/24/2024 3:15 PM EDT Appointment MRI, [place] [address] [place] [address] 05/01/2024 9:45 AM EDT Office Visit Neurosurgery, [place] [address] [place] [address] Clinic, Brain Tumor Multidisciplinary [facility] [place] [address] Health Maintenance Due Date Last Done Comments [...] Ratio 07/02/2025 07/02/2022, 08/05 Cologuard 01/11/2026 01/11/2023, 0412/2022, 01/04/2023 Colorectal Cancer Screening 01/11/2026 Lipid Panel [...] this encounter Medical Devices Implanted Type Area Design Printing Machine Setter Device Identifier Shelf Expiration Date Model / Serial / Lot Graft Lyoplant 7.5x7.5cm 3x3 - [id number] - [id number] Implanted:Qty : 1 on 05/15/2019 by Patel Villavicencio MD at OR [facility] Right: Head B KIMBLE : BJ [id number] 02/01/2024 [id number] / [id number] / [id number] Cover Bur Hol Ti Lo 17 421.527 - [id number] Implanted:Qty : 1 on 05/15/2019 by Patel Villavicencio MD at OR [facility] Right: Head SYNTHES MAXILLOFACIAL 421.527 / / Description:from set Plate Ti Lo Pro Str 2h 421.502 - [id number] Implanted:Qty : 2 on 05/15/2019 by Patel Villavicencio MD at OR [facility] Right: Head SYNTHES MAXILLOFACIAL 421.502 / / Description:from set Screw 4mm Ti Low Pro Sdrill - [id number] Implanted:Qty : 8 on 05/15/2019 by Patel Villavicencio MD at OR [facility] Explanted:Qty : 4 on 08/12/2023 by Patel Villavicencio MD at OR [facility] Right: Head SYNTHES MAXILLOFACIAL 400.834E / / Graft Lyoplant 5.0x5.0cm 2x2 - [id number] - [id number] Implanted:Qty : 1 on 08/12/2023 by Patel Villavicencio MD at OR [facility] B KIMBLE : BJ [id number] 01/02/2028 10 [id number] / [id number] / [id number] Screw 1.5x4mm Axs Sd Un3 - [id number] Implanted:Qty : 4 on 08/12/2023 by Patel Villavicencio MD at OR [facility] Right: Head ESTRELLA : CRANIOMAXILLOFACIAL [id number] / / Description:Lot number and e xpiration date not supplied. documented as of this encounter Visit Diagnoses Diagnosis Glioblastoma (HCC)- Primary Malignant neoplasm of brain, unspecified site 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 syndromes with complex partial seizures, intractable, with status epilepticus (HCC) Left-sided weakness Muscle weakness (generalized) documented in this encounter Advance Directives Latest [...] Care Agent (per Health Care Power of Technical Sme document) [email or web address] Care Teams Maint Mechanic Relationship Specialty Start Date End Date Uzair Blanc MD 200 [place] [address] PCP - General Internal Medicine 08/25/19 documented as of this encounter
--- OUTSIDE RECORDS SUMMARY | 2024-01-27 22:36 | External Medical Summary | Summary of Care ---
Author Name Unknown Organization [facility] Address [address] [place] [address] Phone [phone] Care Team Providers Care Die Polisher Name Role Phone Uzair Blanc MD Primary Care Provider + Reason for Visit * Reason Onset Date Comments Advice 01/18/2024 Encounter Details Date Type Department Care Team ([facility] st Contact Info) Description 01/18/2024 Telephone [facility] Hemat[facility] [address] [place] [address] Oneal [place] PA-C [address] [place] [address] Advice (/) Allergies Active Allergy Reactions Criticality Noted Date Comments Amoxicillin Other (Please comment) Low 05/13/2019 headache documented as of this encounter (statuses as of 01/20/2024) Medications Medication Sig Dispensed Refills Start Date End Date Status acetaminophen (TYLENOL) 500 MG Tablet Take 1 Tab by mouth every 6 hours. 60 Tab 0 05/17/2019 Active Additional Information Patient taking differently: 500-1,000 [id number] PRN, Reported on 10/21/2022 Loratadine 10 MG [...] mRNA, LNP-s, No Pre serve, 2-Dose Series ([employer]) 09/24/2021,01/09/2021,12/18/2020 Pneumococcal Conjugate Vacc, 13 Valent (Prevnar) [...] encounter Miscellaneous Notes * Telephone Encounter - Oneal [place] PA-C - 01/18/2024 8:18 PM EDT Hematology/Oncology Telephone Encounter I was paged at 1901. I called the patient back at 1930. I spoke to Jessica, his . She explains that he fell and hit his head on the floor. He denies anyLOC. EMS has already been called and evaluated him. He is in the [facility] ER currently. She wanted to make us aware about the event. I explained that I will communicated with Dr. Renteria about the event. Oneal [place] PA-C 01/18/24 8:18 PM documented in this encounter Plan of Treatment Upcoming Encounters Date Type Department Care Team (Late st Contact Info) Description 01/21/2024 1:45 PM EDT Pharmacy Pharmacy Hematology Oncology [place] [address] [place] [address] [facility] [place] Clinic Hem/Onc [address] [place] [address] 01/28/2024 1:00 PM EDT Appointment Interventional Radiology [facility], [facility] 1st Floor [address] [place] [address] 02/11/2024 11:30 AM EDT Office Visit Podiatry [facility], [address] [place] [address] Travon Underwood, DPM [address] [place] [address] 02/16/2024 11:20 AM EDT Laboratory Laboratory Hem/Onc [facility], [place] [address] [place] [address] [place], Lab Med4 [address] [place] [address] 02/16/2024 12:00 PM EDT Office Visit Hematology Oncology [facility] [address] [place] [address] Fide Bush PA-C [address] [place], [place] [phone] 02/16/2024 1:00 PM EDT Hem/Onc Treatment Hematology Oncology [facility], [place] [address] [place], [place] [phone] Neo, Chair 1 Hem/Onc [address] [place], [place] [phone] 03/01/2024 2:20 PM EDT Office Visit Neurology, [place] [address] [place] [address] Shellie Gregory PA-C [address] [place] [address] 04/24/2024 3:15 PM EDT Appointment MRI, [address] [id number] 05/01/2024 9:45 AM EDT Office Visit Neurosurgery, [place] [address] [place] [address] Clinic, Brain Tumor Multidisciplinary [address] [place] [address] Health Maintenance Due Date Last Done Comments [...] this encounter Medical Devices Implanted Type Area White Kid Buffer Device Identifier Shelf Expiration Date Model / Serial / Lot Graft Lyoplant 7.5x7.5cm 3x3 - [id number] - [id number] Implanted:Qty : 1 on 05/15/2019 by Patel Villavicencio MD at [place] [facility] Right: Head B KIMBLE : AESCULAP [id number] 02/01/2024 [id number] / [id number] / [id number] Cover Bur Hol Ti Lo 17 421.527 - [id number] Implanted:Qty : 1 on 05/15/2019 by Patel Villavicencio MD at OR [facility] Right: Head SYNTHES MAXILLOFACIAL 421.527 / / Description:from set Plate Ti Lo Pro Str 2h 421.502 - [id number] Implanted:Qty : 2 on 05/15/2019 by Patel Villavicencio MD at [place] [facility] Right: Head SYNTHES MAXILLOFACIAL 421.502 / / Description:from set Screw 4mm Ti Low Pro Sdrill - [id number] Implanted:Qty : 8 on 05/15/2019 by Patel Villavicencio MD at [place] [facility] Explanted:Qty : 4 on 08/12/2023 by Patel Villavicencio MD at OR [facility] Right: Head SYNTHES MAXILLOFACIAL 400.834E / / Graft Lyoplant 5.0x5.0cm 2x2 - [id number] - [id number] Implanted:Qty : 1 on 08/12/2023 by Patel Villavicencio MD at [place] [facility] B KIMBLE : AESCULAP [id number] 01/02/2028 10 [id number] / [id number] / [id number] Screw 1.5x4mm Axs Sd Un3 - [id number] Implanted:Qty : 4 on 08/12/2023 by Patel Villavicencio MD at [place] [facility] Right: Head ESTRELLA : CRANIOMAXILLOFACIAL [id number] / / Description:Lot number and e xpiration [...] Directives occurred with: Not Discussed Care Teams Die Polisher Relationship Specialty Start Date End Date Uzair Blacn MD [address] [place] [address] PCP - General Internal Medicine 08/25/19 documented as of this encounter
--- OUTSIDE RECORDS SUMMARY | 2024-01-27 22:36 | External Medical Summary | Summary of Care ---
Author Name Unknown Organization [facility] Address [address] [place] [address] Phone [phone] Care Team Providers Care Autocutter Name Role Phone Uzair Blanc MD Primary Care Provider + Encounter Details Date Type Department Care Team (Late st Contact Info) Description 01/18/2024 Orders Only General Internal Medicine [facility] 200 [place] [address] Uzair Blanc MD 200 [place] [address] Allergies Active Allergy Reactions Criticality Noted Date Comments Amoxicillin Other (Please comment) Low 05/13/2019 headache documented as of this encounter (statuses as of 01/20/2024) Medications Medication Sig Dispensed Refills Start Date End Date Status acetaminophen (TYLENOL) 500 MG Tablet Take 1 Tab by mouth every 6 hours. 60 Tab 0 05/17/2019 Active Additional Information Patient taking differently: 500-1,000 nsSqhrS1G PRN, Reported on 10/21/2022 Loratadine 10 MG [...] 1:45 PM EDT Pharmacy Pharmacy Hematology Oncology [address] [address] [facility] [place] [facility] Clinic Hem/Onc [address] [place] [address] 01/28/2024 1:00 PM EDT Appointment Interventional Radiology [facility], [place] 1st Floor [address] [place] [address] 02/11/2024 11:30 AM EDT Office Visit Podiatry [address] [place] [address] Travon Underwood, [address] [address] 02/16/2024 11:20 AM EDT Laboratory Laboratory Hem/Onc [address] [phone] [facility] Lab Med4 [address] [place] [address] 02/16/2024 12:00 PM EDT Office Visit Hematology Oncology [facility]3] [address] [place] [phone] Fide Bush PA-C [address] [place], [place] [phone] 02/16/2024 1:00 PM EDT Hem/Onc Treatment Hematology Oncology [facility], [address] [phone] Neo, Chair 1 Hem/Onc [address] [place] [phone] 03/01/2024 2:20 PM EDT Office Visit Neurology, [address] [phone] Shellie Gregory PA-C [address] [place], [place] [phone] 04/24/2024 3:15 PM EDT Appointment MRI, [address] [address] 05/01/2024 9:45 AM EDT Office Visit Neurosurgery, [address] [phone] Clinic, Brain Tumor Multidisciplinary [facility] [place] [address] Health Maintenance Due Date Last Done Comments [...] this encounter Medical Devices Implanted Type Area Water Quality Specialist Device Identifier Shelf Expiration Date Model / Serial / Lot Graft Lyoplant 7.5x7.5cm 3x3 - [id number] - [id number] Implanted:Qty : 1 on 05/15/2019 by Patel Villavicencio MD at OR [facility] Right: Head B KIMBLE : AESCULAP [id number] 02/01/2024 [id number] / [id number] / [id number] Cover Bur Hol Ti Lo 17 421.527 - [id number] Implanted:Qty : 1 on 05/15/2019 by Patel Villavicencio MD at OR [facility] Right: Head SYNTHES MAXILLOFACIAL 421.527 / / Description:from set Plate Ti Lo Pro Str 2h 421.502 - [id number] Implanted:Qty : 2 on 05/15/2019 by Patel Villavicencio MD at OR [facility] Right: Head SYNTHES MAXILLOFACIAL 421.502 / / Description:from set Screw 4mm Ti Low Pro Sdrill - [id number] Implanted:Qty : 8 on 05/15/2019 by Patel Villavicencio MD at OR [facility] Explanted:Qty : 4 on 08/12/2023 by Patel Villavicencio MD at OR [facility] Right: Head SYNTHES MAXILLOFACIAL 400.834E / / Graft Lyoplant 5.0x5.0cm 2x2 - [id number] - [id number] Implanted:Qty : 1 on 08/12/2023 by Patel Villavicencio MD at OR [facility] B KIMBLE : KATELAP [id number] 01/02/2028 10 92454 / [id number] / [id number] Screw 1.5x4mm Axs Sd Un3 - [id number] Implanted:Qty : 4 on 08/12/2023 by Patel Villavicencio MD at OR [facility] Right: Head ESTRELLA : CRANIOMAXILLOFACIAL [id number] / / Description:Lot number and e xpiration [...] study not interpreted or resulted by a [email or web address] or [email or web address] contracted radiologist. Uzair Blanc MD RAD CT [...] Directives occurred with: Not Discussed Care Teams Autocutter Relationship Specialty Start Date End Date Uzair Blanc MD 200 [place] [address] PCP - General Internal Medicine 08/25/19 documented as of this encounter
--- OUTSIDE RECORDS SUMMARY | 2024-01-27 22:36 | External Medical Summary | Summary of Care ---
Author Name Unknown Organization [facility] Address [address] [place] [address] Phone [phone] Care Team Providers Care Chairman And Chief Executive Officer Name Role Phone Uzair Blanc MD Primary Care Provider + Encounter Details Date Type Department Care Team (Late st Contact Info) Description 01/18/2024 Orders Only General Internal Medicine [facility] 200 [facility] [place] [address] Uzair Blanc MD 200 [place] [address] Allergies Active Allergy Reactions Criticality Noted Date Comments Amoxicillin Other (Please comment) Low 05/13/2019 headache documented as of this encounter (statuses as of 01/20/2024) Medications Medication Sig Dispensed Refills Start Date End Date Status acetaminophen (TYLENOL) 500 MG Tablet Take 1 Tab by mouth every 6 hours. 60 Tab 0 05/17/2019 Active Additional Information Patient taking differently: 500-1,000 bnSljbC3B PRN, Reported on 10/21/2022 Loratadine 10 MG [...] 1:45 PM EDT Pharmacy Pharmacy Hematology Oncology [address] [address] [facility] [place] Clinic Hem/Onc [address] [place] [address] 01/28/2024 1:00 PM EDT Appointment Interventional Radiology [facility] [place] 1st Floor [address] [place] [address] 02/11/2024 11:30 AM EDT Office Visit Podiatry [address] [place] [address] Travon Underwood, [address] [address] 02/16/2024 11:20 AM EDT Laboratory Laboratory Hem/Onc [address] [phone] [facility] Lab Med4 [address] [place] [address] 02/16/2024 12:00 PM EDT Office Visit Hematology Oncology [facility] 100 [place] [address] Fide Bush PA-C [address] [place], [place] [phone] 02/16/2024 1:00 PM EDT Hem/Onc Treatment Hematology Oncology [facility]3], [address] [phone] Neo, Chair 1 Hem/Onc [address] [place] [address]58[address] 03/01/2024 2:20 PM EDT Office Visit Neurology, [address] [phone] Shellie Gregory PA-C [address] [place], [place] [address] 04/24/2024 3:15 PM EDT Appointment MRI, [address] [phone] 05/01/2024 9:45 AM EDT Office Visit Neurosurgery, [address] [phone] Clinic, Brain Tumor Multidisciplinary [facility] [place] [address] Health Maintenance Due Date Last Done Comments [...] this encounter Medical Devices Implanted Type Area Orthotic/Prosthetic Clinician Device Identifier Shelf Expiration Date Model / Serial / Lot Graft Lyoplant 7.5x7.5cm 3x3 - [id number] - [id number] Implanted:Qty : 1 on 05/15/2019 by Patel Villavicencio MD [place] [facility] Right: Head B KIMBLE : AESCULAP [id number] 02/01/2024 [id number] / [id number] / [id number] Cover Bur Hol Ti Lo 17 421.527 - [id number] Implanted:Qty : 1 on 05/15/2019 by Patel Villavicencio MD at [place] [facility] Right: Head SYNTHES MAXILLOFACIAL 421.527 / / Description:from set Plate Ti Lo Pro Str 2h 421.502 - [id number] Implanted:Qty : 2 on 05/15/2019 by Patel Villavicencio MD at [place] [facility] Right: Head SYNTHES MAXILLOFACIAL 421.502 / / Description:from set Screw 4mm Ti Low Pro Sdrill - [id number] Implanted:Qty : 8 on 05/15/2019 by Patel Villavicencio MD at [place] [facility] Explanted:Qty : 4 on 08/12/2023 by Patel Villavicencio MD at [place] [facility] Right: Head SYNTHES MAXILLOFACIAL 400.834E / / Graft Lyoplant 5.0x5.0cm 2x2 - [id number] - [id number] Implanted:Qty : 1 on 08/12/2023 by Patel Villavicencio MD at [place] [facility] B KIMBLE : KATELAP [id number] 01/02/2028 10 [id number] / [id number] / [id number] Screw 1.5x4mm Axs Sd Un3 - [id number] Implanted:Qty : 4 on 08/12/2023 by Patel Villavicencio MD at [place] [facility] Right: Head ESTRELLA : CRANIOMAXILLOFACIAL [id number] / / Description:Lot number and e xpiration [...] study not interpreted or resulted by a [facility]urd[facility] Research Foundationclarion hospitaler or [employer] contracted radiologist. Uzair Blanc MD RAD CT [...] Directives occurred with: Not Discussed Care Teams Chairman And Chief Executive Officer Relationship Specialty Start Date End Date Uzair Blanc MD 200 [place] [address] PCP - General Internal Medicine 08/25/19 documented as of this encounter
--- OUTSIDE RECORDS SUMMARY | 2024-01-27 22:37 | External Medical Summary | Summary of Care ---
Author Name Unknown Organization [facility] Address [address] [place] [address] Phone [phone] Care Team Providers Care Test Architect Name Role Phone Uzair Blanc MD Primary Care Provider + Reason for Visit * Reason Onset Date Comments Appointment 01/20/2024 Encounter Details Date Type Department Care Team ([facility] st Contact Info) Description 01/20/2024 Telephone Hematology Oncology [facility] [address] [place] [address] Pat Renteria MD [address] [place] [address] Appointment Allergies Active Allergy Reactions Criticality Noted Date Comments Amoxicillin Other (Please comment) Low 05/13/2019 headache documented as of this encounter (statuses as of 01/20/2024) Medications Medication Sig Dispensed Refills Start Date End Date Status acetaminophen (TYLENOL) 500 MG Tablet Take 1 Tab by mouth every 6 hours. 60 Tab 0 05/17/2019 Active Additional Information Patient taking differently: 500-1,000 [id number] PRN, Reported on 10/21/2022 Loratadine 10 MG [...] mRNA, LNP-s, No Pre serve, 2-Dose Series (Map Decisions) 09/24/2021,01/09/2021,12/18/2020 Pneumococcal Conjugate Vacc, 13 Valent (Prevnar) [...] encounter Miscellaneous Notes * Telephone Encounter - Aura Osborn OSA - 01/20/2024 8:22 AM EDT Pts responded to MY G message and accepted appts on 02-16-2024 * Telephone Encounter - Aura Osborn OSA - 01/20/2024 7:36 AM EDT Good morning, I was asked to make you appts at [facility] around two weeks after you have your port put in, You already had appts on 02-16-2024 with Mackenzie Bush with labs, I kept those appts just added aappt for treatment after you see Mackenzie! thanks have a great day bebo EUNICE G MESSAGE SENt documented in this encounter Plan of Treatment Upcoming Encounters Date Type Department Care Team ([facility] st Contact Info) Description 01/21/2024 1:45 PM EDT Pharmacy Pharmacy Hematology Oncology [facility], [address] [address] [facility] [facility] Hem/Onc [address] [place] [address] 01/28/2024 1:00 PM EDT Appointment Interventional Radiology [facility] [place], Jane Del Cid 1st [place] [facility] [address] 02/11/2024 11:30 AM EDT Office Visit Podiatry [facility], [address] [place] [phone] Travon Underwood, [facility] [address] [place] [address] 02/16/2024 11:20 AM EDT Laboratory Laboratory Hem/Onc [address] [phone] [place], [facility] [address] [place] [address] 02/16/2024 12:00 PM EDT Office Visit Hematology Oncology [place] [address] [place] [phone] Fide Bush PA-C [address] [place], [place] [phone] 02/16/2024 1:00 PM EDT Hem/Onc Treatment Hematology Oncology [address] [address] [place], Chair 1 Hem/Onc [address] [place] [address] 03/01/2024 2:20 PM EDT Office Visit Neurology, [place] [address] [place] [address] Shellie Gregory PA-C [address] [place] [address] 04/24/2024 3:15 PM EDT Appointment MRI, [place] [address], [place] [phone] 05/01/2024 9:45 AM EDT Office Visit Neurosurgery, [place] [address], [place] [phone] Clinic, Brain Tumor Multidisciplinary [address], [place] [phone] Health Maintenance Due Date Last Done Comments Fecal Occult Blood Test 1994 Sigmoidoscopy 1994 DTaP,Tdap,and Td Vaccines (1 - Tdap) 04/04/2009 04/03/2009 Zoster Vaccines (2 of 3) 04/27/2014 03/02/2014 Colonoscopy 03/03/2023 03/03/2013 COVID-19 Vaccine (4 - season) 2023 09/24/2021, 01/09/2021, 12/18/2020 GFR 01/11/2025 [...] this encounter Medical Devices Implanted Type Area Diesel Mechanic Construction Device Identifier Shelf Expiration Date Model / Serial / Lot Graft Lyoplant 7.5x7.5cm 3x3 - [id number] - [id number] Implanted:Qty : 1 on 05/15/2019 by Patel Villavicencio MD at OR [facility] [place] Right: Head B KIMBLE : BJ [id number] 02/01/2024 [id number] / [id number] / [id number] Cover Bur Hol Ti Lo 17 421.527 - [id number] Implanted:Qty : 1 on 05/15/2019 by Patel Villavicencio MD at OR [facility] [place] Right: Head SYNTHES MAXILLOFACIAL 421.527 / / Description:from set Plate Ti Lo Pro Str 2h 421.502 - [id number] Implanted:Qty : 2 on 05/15/2019 by Patel Villavicencio MD at OR [facility] [place] Right: Head SYNTHES MAXILLOFACIAL 421.502 / / Description:from set Screw 4mm Ti Low Pro Sdrill - [id number] Implanted:Qty : 8 on 05/15/2019 by Patel Villavicencio MD at OR [facility] [place] Explanted:Qty : 4 on 08/12/2023 by Patel Villavicencio MD at OR [facility] [place] Right: Head SYNTHES MAXILLOFACIAL 400.834E / / Graft Lyoplant 5.0x5.0cm 2x2 - [id number] - [id number] Implanted:Qty : 1 on 08/12/2023 by Patel Villavicencio MD at OR [facility] [place] B KIMBLE : BJ [id number] 01/02/2028 10 [id number] / [id number] / [id number] Screw 1.5x4mm Axs Sd Un3 - [id number] Implanted:Qty : 4 on 08/12/2023 by Patel Villavicencio MD at OR [facility] [place] Right: Head ESTRELLA : CRANIOMAXILLOFACIAL [id number] / / Description:Lot number and e xpiration [...] Directives occurred with: Not Discussed Care Teams Test Architect Relationship Specialty Start Date End Date Uzair Blanc MD [address] [facility] [place] [address] PCP - General Internal Medicine 08/25/19 documented as of this encounter
--- OUTSIDE RECORDS SUMMARY | 2024-01-27 22:37 | External Medical Summary | Summary of Care ---
Author Name Unknown Organization [facility] Address [address] [place] [address] Phone [phone] Care Team Providers Care Fruit Stuffer Name Role Phone Uzair Blanc MD Primary Care Provider + Reason for Visit * Reason Comments Medication Management Encounter Details Date Type Department Care Team ([facility] st Contact Info) Description 01/17/2024 3:45 PM EDT Pharmacy Pharmacy Hematology Oncology [facility] [address] [place] [address] [facility] [place], [facility] Clinic Hem/Onc [address] [place] [address] Glioblastoma (HCC)* Allergies Active Allergy Reactions Criticality Noted Date Comments Amoxicillin Other (Please comment) Low 05/13/2019 headache documented as of this encounter (statuses as of 01/19/2024) Medications Medication Sig Dispensed Refills Start Date End Date Status acetaminophen (TYLENOL) 500 MG Tablet Take 1 Tab by mouth every 6 hours. 60 Tab 0 9 Active Additional Information Patient taking differently: 500-1,000 [id number] PRN, Reported on 10/21/2022 Loratadine 10 MG Oral Capsule Take 1 Capsule by mouth in the morning. As needed for sinuses . 0 Active Triamcinolone Acetonide 0.1 % External Cream (Aristocort)Indica tions:Rash and nonspecific skin eruption Apply topically to affected area 2 times a day. To affected area. 15 g 5 3 Active clonazePAM 0.5 MG Oral Tablet (KlonoPIN) Take 0.5 Tablets by mouth daily as needed for Other (focal seizures). 10 Tablet 1 3 Active Atorvastatin Calcium 10 MG Oral Tablet (Lipitor)Indicatio ns:Mixed hyperlipidemia Take 1 Tablet by mouth in the morning. 90 Tablet 3 3 Active CPAP every night at bedtime. 0 Active Phenytoin Sodium Extended 100 MG Oral Capsule (Dilantin) TAKE 1 AT 8AM, 1 AT 2:30PM, 2 AT 9:30PM - NO MEALS WITHIN 30 MINUTES OF DOSE 360 Capsule 1 3 Active Sertraline HCl 50 MG Oral Tablet (Zoloft)Indication s:Glioblastoma (HCC) Take 1 Tablet by mouth in the morning. 90 Tablet 3 3 Active levETIRAcetam 1000 MG Oral Tablet TAKE 1 TABLET BY MOUTH IN THE MORNING AND BEFORE BEDTIME 180 Tablet 1 4 Active Lacosamide 200 MG Oral Tablet (Vimpat)Indication s:Epilepsia partialis continua (HCC) TAKE 1 TABLET BY MOUTH IN THE MORNING AND BEFORE BEDTIME 180 Tablet 1 4 Active levETIRAcetam 500 MG Oral Tablet (Keppra) TAKE 1 TABLET BY MOUTH IN THE MORNING AND 1 TABLET BEFORE BEDTIME. TAKE WITH 1000 MG TABLET FOR TOTAL OF 1500 MG TWICE DAILY.. 180 Tablet 1 4 Active Ondansetron HCl 8 MG Oral Tablet (Zofran)Indication s:Glioblastoma (HCC) Take 1 Tablet by mouth every 8 hours as needed for Nausea. 60 Tablet 0 4 01/17/20 24 Discontinued Docusate Sodium 50 MG Oral Capsule (Colace)Indication s:Glioblastoma (HCC) Take 1 Capsule by mouth in the morning and 1 Capsule before bedtime. 60 Capsule 3 4 01/17/20 24 Discontinued Temozolomide 140 MG Oral Capsule (Temodar)Indicatio ns:Glioblastoma (HCC) Take 1 capsule by mouth at bedtime. Take with other prescription for dose of 320 mg daily. For 5 days, followed by 23 days off. Take medication on empty stomach. 5 Capsule 0 4 01/17/20 24 Discontinued Temozolomide 180 MG Oral Capsule (Temodar)Indicatio ns:Glioblastoma (HCC) Take 1 capsule by mouth at bedtime. Take with other prescription for dose of 320 mg daily. For 5 days, followed by 23 days off. Take medication on empty stomach. 5 Capsule 0 4 01/17/20 24 Discontinued documented as of this encounter (statuses as of 01/19/2024) Active Problems Problem Noted Date Diagnosed Date [...] as of this encounter (statuses as of 01/19/2024) Resolved Problems Problem Noted Date Diagnosed Date Resolved Date Stage 3 chronic kidney disease 08/12/2023 08/19/2023 Stage 3 chronic kidney disease 12/23/2019 12/27/2019 Gait instability 12/23/2019 12/04/2021 Benign hypertension with CKD (chronic kidney disease) stage III 08/25/2019 11/27/2019 Seizure-like activity 06/01/20192021 Essential hypertension 05/13/201908/25 HLD (hyperlipidemia) 05/13/2019 019 Class 1 obesity in adult 05/13/2019 documented as of this encounter (statuses as of 01/19/2024) Immunizations Name Administration Dates Next Due COVID-19 mRNA, LNP-s, No Pre serve, 2-Dose Series (Emerging Threats) 09/24/2021,01/09/2021,12/18/2020 Pneumococcal Conjugate Vacc, 13 Valent (Prevnar) [...] this encounter Progress Notes * Nuria Thurston, [facility] - 01/18/2024 10:29 AM EDT MEDICATION THERAPY MANAGEMENT LOMUSTINE INITIAL INTAKE NOTE Ar Lucero [id number] Patient Phone Numbers Mobile, Jessica [phone] UPS shipments may take > 1 day [place] Communication: Seen in clinic w/ Treatment: Medication: Lomustine (Gleostine, CCNU) Indication/Staging/Diagnosis Code: [...] stomach at bedtime Start Date: TBD Primary Diesel Motor Mechanic/Oncologist: Dr. Renteria Additional Therapy: Bevacizumab Supportive Care [...] and docusate refills to be sent via [place] plan Are appropriate prophylactic medications prescribed? No, ondansetron and docusate refills to be sent via [place] plan Have baseline labs/tests been obtained? Yes Has hepatitis B screening been completed? Yes Potential drug-drug drug-herbal, drug-food, drug-disease interactions: Yes Lomustine and phenytoin: Category C Drug Interaction: Monitor Therapy: Fosphenytoin-Phenytoin may diminish the therapeutic effect of Lomustine Recommendation: Monitor for decreased lomustine effectiveness if combined with fosphenytoin or phenytoin. [place] prescribing information does not mention this potential interaction while Avenue labeling recommends avoidance of this combination Action: As above The Hematology/Oncology Oral Chemotherapy Clinic will assess medication compliance at each patient encounter Assessment and Plan: sent to Dr. Renteria to discuss if patient should complete PFTs with lomustine start Education and handouts provided in [facility] on 01/16 Yes/no Date Action Taken [place] plan entered? Yes 01/17/24 Consent completed? Yes 01/17/24 During [facility] Intro/med rec completed? Precert completed? Yes 01/18/24 Test claim completed? Yes 01/18/24 Copay $1120.20 Financial assistance needed? Yes Pt assistance following Physician signature? Rx released? Education completed? Follow up: 2 days Nuria Thurston, BerniceD, BCOP Ambulatory Clinical Pharmacist | Oral Chemotherapy Clinic [facility] 01/18/2024, 10:39 AM Monitoring Parameters: Estimated CrCl Serum creatinine: 1.1 mg/dL 01/12/24 1028 Estimated creatinine clearance: 64 mL/min Hepatitis panel Complete 08/23/23 Not immune to hepatitis B virus Suggested lab monitoring CBCd and CMP weekly Treatment Parameters Please refer to PI and BELOB trial Pertinent Labs: Latest Reference Range & Units 01/12/24 10:28 WBC 4.00 - 10.80 K/uL 4.16 RBC 4.50 - 5.25 M/uL 5.02 HGB 14.0 - 16.8 g/dL 16.8 HCT 40.0 - 48.4 % 49.6 (H) MCV 82.0 - 99.5 fL 98.8 MCH 27.0 - 34.0 pg 33.5 MCHC 32.0 - 36.0 g/dL 33.9 RDW 11.5 - 15.5 % 14.1 PLT 140 - 400 K/uL 168 MPV 6.6 - 11.1 fL 8.6 CBC WITH WBC DIFFERENTIAL Rpt ! Absolute Neutrophils 1.80 - 7.70 K/uL 2.67 Absolute Lymphocytes 1.00 - 4.80 K/ul 0.97 (L) (H): Data is abnormally high !: Data is abnormal (L): Data is abnormally low Rpt: View report in Results Review for more information Latest Reference Range & Units 01/12/24 10:28 Albumin 3.8 - 5.0 g/dL 4.2 AST 10 - 50 U/L 23 ALT 10 - 50 U/L 6 (L) Alkaline Phosphatase 35 - 130 U/L 123 Bilirubin, Total <=1.2 mg/dL 0.4 (L): Data is abnormally low Time Spent on Encounter: > 31 minutes Encounter Group: Neuro-Oncology Encounter Interventions Item Category: Oral Chemotherapy Lomustine Problem/Rationale: [place] Plan Review: Initial Plan/upload Education: Initial education Pharmacist Intervention(s): Care coordination, Clarification with Provider, Drug Interaction Screen, Education provided, Lab monitoring, Referral review, and Referral to [facility] Magnitude of Intervention: Monitoring with direction (Level 1) documented in this encounter Plan of Treatment Upcoming Encounters Date Type Department Care Team (Late st Contact Info) Description 01/19/2024 3:40 PM EDT Telemedicine General Internal Medicine [facility] [address] [facility] [place] [address] Uzair Blanc MD [address] [place] [address] 01/21/2024 1:45 PM EDT Pharmacy Pharmacy Hematology Oncology [address] [address] [facility] [place], [facility] Clinic Hem/Onc [address] [place] [address] 02/11/2024 11:30 AM EDT Office Visit Podiatry [address] [place] [address] Travon Underwood, [facility] [place] [address] 02/16/2024 11:20 AM EDT Laboratory Laboratory Hem/Onc [address] [phone] [address] [address] 02/16/2024 12:00 PM EDT Office Visit Hematology Oncology [facility], [place] [address] [place] [address] Fide Bush PA-C [address] [place] [address] 03/01/2024 2:20 PM EDT Office Visit Neurology, [facility] [address] [place] [phone] Shellie Gregory PA-C [address] [place], [place] [phone] 04/24/2024 3:15 PM EDT Appointment MRI, [address] [phone] 05/01/2024 9:45 AM EDT Office Visit Neurosurgery, [facility] [address] [place], [place] [phone] Clinic, Brain Tumor Multidisciplinary [facility] [place] [address] Health Maintenance Due Date Last Done Comments [...] this encounter Medical Devices Implanted Type Area Reservation Clerk Device Identifier Shelf Expiration Date Model / Serial / Lot Graft Lyoplant 7.5x7.5cm 3x3 - [id number] - [id number] Implanted:Qty : 1 on 05/15/2019 by Patel Villavicencio MD at [place] [facility] [place] Right: Head B KIMBLE : BJ [id number] 02/01/2024 [id number] / [id number] / [id number] Cover Bur Hol Ti Lo 17 421.527 - [id number] Implanted:Qty : 1 on 05/15/2019 by Patel Villavicencio MD at OR [facility] [place] Right: Head SYNTHES MAXILLOFACIAL 421.527 / / Description:from set Plate Ti Lo Pro Str 2h 421.502 - [id number] Implanted:Qty : 2 on 05/15/2019 by Patel Villavicencio MD at OR [facility] [place] Right: Head SYNTHES MAXILLOFACIAL 421.502 / / Description:from set Screw 4mm Ti Low Pro Sdrill - [id number] Implanted:Qty : 8 on 05/15/2019 by Patel Villavicencio MD at OR [facility] [place] Explanted:Qty : 4 on 08/12/2023 by Patel Villavicencio MD at OR [facility] [place] Right: Head SYNTHES MAXILLOFACIAL 400.834E / / Graft Lyoplant 5.0x5.0cm 2x2 - [id number] - [id number] Implanted:Qty : 1 on 08/12/2023 by Patel Villavicencio MD at OR [facility] B KIMBLE : [id number] 01/02/2028 10 [id number] / [id number] / [id number] Screw 1.5x4mm Axs Sd Un3 - [id number] Implanted:Qty : 4 on 08/12/2023 by Patel Villavicencio MD at [facility] Right: Head ESTRELLA : CRANIOMAXILLOFACIAL [id number] / / Description:Lot number and e xpiration [...] Directives occurred with: Not Discussed Care Teams Fruit Stuffer Relationship Specialty Start Date End Date Uzair Blanc MD [address] [place] [address] PCP - General Internal Medicine 08/25/19 documented as of this encounter"
--- OUTSIDE RECORDS SUMMARY | 2024-01-27 22:37 | External Medical Summary | Summary of Care ---
Author Name Unknown Organization [facility] Address [address] [place] [address] Phone [phone] Care Team Providers Care Industrial Engineering Professor Name Role Phone Uzair Blanc MD Primary [...] status epilepticus (HCC) Uzair Blanc MD 200 [facility] [place] [address] Referral ID Status Reason Start Date Expiration Date Visits Requested Visits Authorized [id number] Authorized Specialty Services Required 01/19/[phone] Question Answer Referral Priority Within 10 days (routine) Where should this appointment be scheduled? Rosie Comments Referred for Medical Home Care Management Reason for Visit * Reason Comments Follow Up Encounter Details Date Type Department Care Team (Late st Contact Info) Description 01/19/2024 3:40 PM EDT Telemedicine General Internal Medicine [address] [place] [address] [place] [address] Uzair Blanc MD [address] [place] [address] Fall, initial encounter*; Moderate major depression (HCC); [...] Active Additional Information Patient taking differently: 500-1,000 [id number] PRN, Reported on 10/21/2022 Loratadine 10 MG [...] hospital or clinic location. After connecting through televideo,patient was verified with two unique identifiers. Patient (or authorized legal real estate representative) was then informed that this was [...] was in contact with neurosurgery and oncology [facility] per 's report. No n/v/d. Patient [...] Vaccines (2 of 3) 04/27/2014 COVID-19 Vaccine ( season) 2023 ROS: CONSTITUTIONAL: No fevers, sweats, [...] performed by Patel Villavicencio MD [place] [facility] REMOVE SUPRATENTORIAL BRAIN TUMOR Right 05/15/2019 CRANIOTOMY BONE FLAP EXCISION BRAIN TUMOR SUPRATENTORIAL performed by Patel Villavicencio MD at [place] [facility] REMOVE SUPRATENTORIAL BRAIN TUMOR Right 08/12/2023 CRANIOTOMY BONE FLAP EXCISION BRAIN TUMOR SUPRATENTORIAL performed by Patel Villavicencio MD [place] [facility] SHOULDER ARTHROSCOPY/DEBRIDEMENT Left 02/01/1990 STEREOTACTIC CRANIAL INTRADURAL NAVIGATION Right 08/12/2023 STEREOTACTIC CRANIAL INTRADURAL NAVIGATION performed by Patel Villavicencio MD [place] [facility] Family History Problem Relation Age of Onset [...] Was discussed with them and specialist in [place] today, felt to be from swelling Start steroids phillip Agree with home health, already ordered Will also get with case mgmt for aid Follow closely They will call if any issues/change 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 [...] [facility] [address] [place] [address] [facility] Hem/Onc [address] [place] [address] 01/28/2024 1:00 PM EDT Appointment Interventional Radiology [facility] [address] [place] [address] 02/11/2024 11:30 AM EDT Office Visit Podiatry [address] [place] [address] Travon Underwood, M [address] [place] [address] 02/16/2024 11:20 AM EDT Laboratory Laboratory Hem/Onc [address] [address] [place] [address] [address] [place] [address] 02/16/2024 12:00 PM EDT Office Visit Hematology Oncology [facility], [place] [address] [place] [phone] Fide Bush PA-C [address] [place] [address] 03/01/2024 2:20 PM EDT Office Visit Neurology, [address] [phone] Shellie Gregory PA-C [address] [place] [address] 04/24/2024 3:15 PM EDT Appointment MRI, [address] [address] 05/01/2024 9:45 AM EDT Office Visit Neurosurgery, [address] [phone] Clinic, Brain Tumor Multidisciplinary [facility] [address] [place], [place] [phone] Scheduled Referrals Name Type Priority Associated Diagnoses [...] this encounter Medical Devices Implanted Type Area Breaster Device Identifier Shelf Expiration Date Model / Serial / Lot Graft Lyoplant 7.5x7.5cm 3x3 - [id number] - [id number] Implanted:Qty : 1 on 05/15/2019 by Patel Villavicencio MD [place] [facility] [place]: Head B KIMBLE : [id number] 02/01/2024 [id number] / [id number] / [id number] Cover Bur Hol Ti Lo 17 421.527 - [id number] Implanted:Qty : 1 on 05/15/2019 by Patel Villavicencio MD [place] [facility] Right: Head SYNTHES MAXILLOFACIAL 421.527 / / Description:from set Plate Ti Lo Pro Str 2h 421.502 - [id number] Implanted:Qty : 2 on 05/15/2019 by Patel Villavicencio MD [place] [facility] Right: Head SYNTHES MAXILLOFACIAL 421.502 / / Description:from set Screw 4mm Ti Low Pro Sdrill - [id number] Implanted:Qty : 8 on 05/15/2019 by Patel Villavicencio MD [place] [facility] Explanted:Qty : 4 on 08/12/2023 by Patel Villavicencio MD [place] [facility] Right: Head SYNTHES MAXILLOFACIAL 400.834E / / Graft Lyoplant 5.0x5.0cm 2x2 - [id number] - [id number] Implanted:Qty : 1 on 08/12/2023 by Patel Villavicencio MD [place] [facility] B KIMBLE : AESCULAP [id number] 01/02/2028 10 [id number] / [id number] / [id number] Screw 1.5x4mm Axs Sd Un3 - [id number] Implanted:Qty : 4 on 08/12/2023 by Patel Villavicencio MD [place] [facility] Right: Head ESTRELLA : CRANIOMAXILLOFACIAL [id number] / / Description:Lot number and e xpiration [...] Directives occurred with: Not Discussed Care Teams Industrial Engineering Professor Relationship Specialty Start Date End Date Uzair Blanc MD 200 [facility] [place] [address] PCP - General Internal Medicine 08/25/19 documented as of this encounter
--- OUTSIDE RECORDS SUMMARY | 2024-01-27 22:37 | External Medical Summary | Summary of Care ---
Author Name Unknown Organization [facility] Address [address] [place] [address] Phone [phone] Care Team Providers Care Emergency Specialist Name Role Phone Uzair Blanc MD Primary Care Provider + Reason for Visit * Reason Comments Medication Management Encounter Details Date Type Department Care Team ([facility] st Contact Info) Description 01/17/2024 3:45 PM EDT Pharmacy Pharmacy Hematology Oncology [facility] [address] [place] [address] [facility] Hem/Onc [address] [place] [address] Glioblastoma (HCC)* Allergies Active Allergy Reactions Criticality Noted Date Comments Amoxicillin Other (Please comment) Low 05/13/2019 headache documented as of this encounter (statuses as of 01/19/2024) Medications Medication Sig Dispensed Refills Start Date End Date Status acetaminophen (TYLENOL) 500 MG Tablet Take 1 Tab by mouth every 6 hours. 60 Tab 0 9 Active Additional Information Patient taking differently: 500-1,000 [id number] PRN, Reported on 10/21/2022 Loratadine 10 MG [...] mRNA, LNP-s, No Pre serve, 2-Dose Series ([employer]) 09/24/2021,01/09/2021,12/18/2020 Pneumococcal Conjugate Vacc, 13 Valent (Prevnar) [...] this encounter Progress Notes * Nuria Thurston, formerly [facility] - 01/18/2024 10:29 AM EDT MEDICATION THERAPY MANAGEMENT LOMUSTINE INITIAL INTAKE NOTE Ar Lucero [id number] Patient Phone Numbers Mobile, Jessica [phone] UPS shipments may take > 1 day [...] stomach at bedtime Start Date: TBD Primary Technical Communication Teacher/Oncologist: Dr. Renteria Additional Therapy: Bevacizumab Supportive Care [...] and docusate refills to be sent via [place] plan Are appropriate prophylactic medications prescribed? No, ondansetron and docusate refills to be sent via [place] plan Have baseline labs/tests been obtained? Yes Has hepatitis B screening been completed? Yes Potential drug-drug drug-herbal, drug-food, drug-disease interactions: Yes Lomustine and phenytoin: Category C Drug Interaction: Monitor Therapy: Fosphenytoin-Phenytoin may diminish the therapeutic effect of Lomustine Recommendation: Monitor for decreased lomustine effectiveness if combined with fosphenytoin or phenytoin. [place] prescribing information does not mention this potential interaction while [place] labeling recommends avoidance of this combination Action: As above The Hematology/Oncology Oral Chemotherapy Clinic will assess medication compliance at each patient encounter Assessment and Plan: sent to Dr. Renteria to discuss if patient should complete PFTs with lomustine start ADDENDUM: Can forgo PFTs for now and obtain in future if patient has any s/sx of pulmonary toxicity Education and handouts provided in [facility] on 01/16 Yes/no Date Action Taken [place] plan entered? Yes 01/17/24 Consent completed? Yes 01/17/24 During [facility] Intro/med rec completed? Precert completed? Yes 01/18/24 Test claim completed? Yes 01/18/24 Copay $1120.20 Financial assistance needed? Yes Pt assistance following Physician signature? Rx released? Education completed? Follow up: 2 days Nuria Thurston, PharmD, BCOP Ambulatory Clinical Pharmacist | Oral Chemotherapy Clinic [facility] 01/18/2024, 10:39 AM Monitoring Parameters: Estimated CrCl Serum creatinine: 1.1 mg/dL 01/12/24 1028 Estimated creatinine clearance: 64 mL/min Hepatitis panel Complete 08/23/23 Not immune to hepatitis B virus Suggested lab monitoring CBCd and CMP weekly Treatment Parameters Please refer to PI and ABBIE trial Pertinent Labs: Latest Reference Range & [...] Interventions Item Category: Oral Chemotherapy Lomustine Problem/Rationale: [place] Plan Review: Initial Plan/upload Education: Initial education Pharmacist Intervention(s): Care coordination, Clarification with Provider, Drug Interaction Screen, Education provided, Lab monitoring, Referral review, and Referral to [facility] Magnitude of Intervention: Monitoring with direction (Level 1) documented in this encounter Plan of Treatment Upcoming Encounters Date Type Department Care Team (Late st Contact Info) Description 01/19/2024 3:40 PM EDT Telemedicine General Internal Medicine [facility] [address] [place] [address] Uzair Blanc MD [address] [place] [address] 01/21/2024 1:45 PM EDT Pharmacy Pharmacy Hematology Oncology [address] [address] [facility] Hem/Onc [facility] [place] [address] 02/11/2024 11:30 AM EDT Office Visit Podiatry [facility], [address] [place] [address] Travon Underwood DPM [facility] [place], [place] [phone] 02/16/2024 11:20 AM EDT Laboratory Laboratory Hem/Onc [address] [address] [facility] [address] [place] [address] 02/16/2024 12:00 PM EDT Office Visit [facility], [place] [address] [place] [phone] Fide Bush PA-C [address] [place], [place] [phone] 03/01/2024 2:20 PM EDT Office Visit Neurology, [place] [address] [place] [address] Shellie Gregory PA-C [address] [place] [address] 04/24/2024 3:15 PM EDT Appointment MRI, [place] [address] [place], [place] [id number] 05/01/2024 9:45 AM EDT Office Visit Neurosurgery, [place] [address] [place], [place] [phone] Clinic, Brain Tumor Multidisciplinary [address] [place], [place] [phone] Health Maintenance Due Date Last Done Comments [...] this encounter Medical Devices Implanted Type Area Patternmaker Apprentice Metal Device Identifier Shelf Expiration Date Model / Serial / Lot Graft Lyoplant 7.5x7.5cm 3x3 - [id number] - [id number] Implanted:Qty : 1 on 05/15/2019 by Patel Villavicencio MD at OR [facility] Right: Head B KIMBLE : [id number] 02/01/2024 [id number] / [id number] / [id number] Cover Bur Hol Ti Lo 17 421.527 - [id number] Implanted:Qty : 1 on 05/15/2019 by Patel Villavicencio MD at OR [facility] Right: Head SYNTHES MAXILLOFACIAL 421.527 / / Description:from set Plate Ti Lo Pro Str 2h 421.502 - [id number] Implanted:Qty : 2 on 05/15/2019 by Patel Villavicencio MD at OR [facility] Right: Head [facility] MAXILLOFACIAL 421.502 / / Description:from set Screw 4mm Ti Low Pro Sdrill - [id number] Implanted:Qty : 8 on 05/15/2019 by Patel Villavicencio MD at OR [facility] Explanted:Qty : 4 on 08/12/2023 by Patel Villavicencio MD at OR [facility] Right: Head SYNTHES MAXILLOFACIAL 400.834E / / Graft Lyoplant 5.0x5.0cm 2x2 - [id number] - [id number] Implanted:Qty : 1 on 08/12/2023 by Patel Villavicencio MD at OR [facility] B KIMBLE : [id number] 01/02/2028 10 [id number] / [id number] / [id number] Screw 1.5x4mm Axs Sd Un3 - [id number] Implanted:Qty : 4 on 08/12/2023 by Patel Villavicencio MD at OR [facility] Right: Head ESTRELLA : CRANIOMAXILLOFACIAL [id number] / / Description:Lot number and e xpiration [...] Directives occurred with: Not Discussed Care Teams Emergency Specialist Relationship Specialty Start Date End Date Uzair Blanc MD [address] [facility] [place] [address] PCP - General Internal Medicine 08/25/19 documented as of this encounter"
--- OUTSIDE RECORDS SUMMARY | 2024-01-27 22:37 | External Medical Summary | Summary of Care ---
Author Name Unknown Organization [facility] Address [address] [place] [address] Phone [phone] Care Team Providers Care Sap Abap Programmer Name Role Phone Uzair Blanc MD Primary Care Provider + Encounter Details Date Type Department Care Team ([facility] st Contact Info) Description 01/18/[address] [facility] [address] [place] [address] Pat Renteria MD [address] [place] [address] Allergies Active Allergy Reactions Criticality Noted Date Comments Amoxicillin Other (Please comment) Low 05/13/2019 headache documented as of this encounter (statuses as of 01/19/2024) Medications Medication Sig Dispensed Refills Start Date End Date Status acetaminophen (TYLENOL) 500 MG Tablet Take 1 Tab by mouth every 6 hours. 60 Tab 0 05/17/2019 Active Additional Information Patient taking differently: 500-1,000 [id number] PRN, Reported on 10/21/2022 Loratadine 10 MG [...] encounter Miscellaneous Notes * Telephone Encounter - Nuria Thurston RPh - 01/19/2024 8:26 AM EDT Spoke with , Jessica. Advised that labs are not needed today as patient has stopped Temodar. Labappt canceled. Nuria Thurston PharmD, [facility] Ambulatory Clinical Pharmacist | Oral Chemotherapy Clinic [facility] 01/19/2024, 8:27 AM * Telephone Encounter - Saadia Cantu PHARM Tech - 01/18/2024 12:44 PM EDT MEDICATION THERAPY MANAGEMENT LOMUSTINE TREATMENT STATUS NOTE Ra Nic [phone] Patient Phone Numbers Communication: Spoke to Caller Treatment: Medication: Lomustine (Gleostine, CCNU) Indication/Staging/Diagnosis Code: Glioblastoma, WHO Grade IV, C71.9 Dose Basis: Cycle 1: 90 mg/m2 Cycle 2-6: 110 mg/m2 (if no hematologic toxic effects of a grade of more than 1 during the first cycle) Dose: Cycle 1: 160 mg (max dose) Cycle 2-6: 200 mg (max dose) Administration: empty stomach at bedtime Start Date: D Primary Student Records Coordinator/Oncologist: Dr. Renteria Caller: - Jessica Incoming Request: Other: are labs necessary Action: Sent telephone encounter to pharmacist for follow-up Additional Notes: Will Patient be required to have TMZ labs drawn tomorrow now that medication has been changed to lomustine? Please advise [phone] Saadia Cantu varnishing machine operator Front Counter Attendant Hematology Oncology Oral Chemotherapy Clinic Medication Therapy Disease Management [facility] 01/18/24,12:46 PM Time Spent on Encounter: < 5 minutes Encounter Group: Neuro-Oncology Encounter Interventions Item Category: Oral Chemotherapy Lomustine documented in this encounter Plan of Treatment Upcoming Encounters Date Type Department Care Team (Late st Contact Info) Description 01/19/2024 3:40 PM EDT Office Visit General Internal Medicine [facility] [address] [place] [address] Uzair Blanc MD [address] [place] [address] 02/11/2024 11:30 AM EDT Office Visit Podiatry [address] [place] [address] Travon Underwood, [facility] [address] [place] [address] 02/16/2024 11:20 AM EDT Laboratory Laboratory Hem/Onc [facility] [address] [place] [address] [place], Lab [facility] [address] [place], [place] [phone] 02/16/2024 12:00 PM EDT Office Visit Hematology Oncology [facility] [address] [place] [address] Fide Bush PA-C [address] [place], [place] [phone] 03/01/2024 2:20 PM EDT Office Visit Neurology, [place] [address] [place] [address] Shellie Gregory PA-C [address] [place] [address] 04/24/2024 3:15 PM EDT Appointment MRI, [place] [address] [place], [place] [phone] 05/01/2024 9:45 AM EDT Office Visit Neurosurgery, [place] [address] [place] [address] Clinic, Brain Tumor Multidisciplinary [address], [place] [phone] Health Maintenance Due Date Last Done Comments [...] this encounter Medical Devices Implanted Type Area Barrel Waterer Device Identifier Shelf Expiration Date Model / Serial / Lot Graft Lyoplant 7.5x7.5cm 3x3 - [id number] - [id number] Implanted:Qty : 1 on 05/15/2019 by Patel Villavicencio MD at [place] [facility] [place] Right: Head B KIMBLE : BJ [id number] 02/01/2024 [id number] / [id number] / [id number] Cover Bur Hol Ti Lo 17 421.527 - [id number] Implanted:Qty : 1 on 05/15/2019 by Patel Villavicencio MD at OR [facility] [place] Right: Head SYNTHES MAXILLOFACIAL 421.527 / / Description:from set Plate Ti Lo Pro Str 2h 421.502 - [id number] Implanted:Qty : 2 on 05/15/2019 by Patel Villavicencio MD at OR [facility] [place] Right: Head SYNTHES MAXILLOFACIAL 421.502 / / Description:from set Screw 4mm Ti Low Pro Sdrill - [id number] Implanted:Qty : 8 on 05/15/2019 by Patel Villavicencio MD at OR [facility] [place] Explanted:Qty : 4 on 08/12/2023 by Patel Villavicencio MD at OR [facility] [place] Right: Head SYNTHES MAXILLOFACIAL 400.834E / / Graft Lyoplant 5.0x5.0cm 2x2 - [id number] - [id number] Implanted:Qty : 1 on 08/12/2023 by Patel Villavicencio MD at OR [facility] [place] B KIMBLE : BJ [id number] 01/02/2028 10 [id number] / [id number] / [id number] Screw 1.5x4mm Axs Sd Un3 - [id number] Implanted:Qty : 4 on 08/12/2023 by Patel Villavicencio MD at OR [facility] [place] Right: Head ESTRELLA : CRANIOMAXILLOFACIAL [id number] / / Description:Lot number and e xpiration [...] Directives occurred with: Not Discussed Care Teams Sap Abap Programmer Relationship Specialty Start Date End Date Uzair Blanc MD [address] [place] [address] PCP - General Internal Medicine 08/25/19 documented as of this encounter"
--- NOTE | 2024-01-28 01:01 | CT Scan Report ---
Exam(s): CT HEAD Without Contrast EXAM: CT Head Without Intravenous Contrast CLINICAL HISTORY: Reason for exam: s/p neurosurg on IV heparin. TECHNIQUE: Axial computed tomography images of the head/brain without intravenous contrast. CTDI is 36.79 mGy and DLP is 625.8 mGy-cm. Automated exposure control was utilized for the study. A dose lowering technique was utilized adhering to the principles of ALARA. COMPARISON: Comparison is made to prior head CT from January 18, 2024. FINDINGS: Brain: Bilateral subdural hygromas over the frontal and parietal lobes. There is a tiny dense right subdural collection along the right lateral frontal lobe measuring 6.7 mm, which is unchanged from the prior head CT. Remote ischemic injury of the right frontal and temporal lobes with encephalomalacia and gliosis. No hemorrhage. No edema. Ventricles: Unremarkable. No ventriculomegaly. Bones/joints: Remote right craniotomy. No acute fracture. Soft tissues: Unremarkable. Sinuses: Unremarkable as visualized. No acute sinusitis. Mastoid air cells: Unremarkable as visualized. No mastoid effusion. IMPRESSION: There are new bilateral subdural hygromas over the frontal and parietal lobe convexities. Otherwise, no significant change from the prior head CT. Electronically signed by: Shayna Zhao MD 01/28/24 01:00 AM
[2024-01-28] MEDS: HYDROmorphone INJ 0.5 MG/0.5 ML SYR IV PRN (01:07)
[2024-01-28 06:31] LABS: Basophils # (auto) 0.02 K/uL (0.00-0.20); Basophils % (auto) 0.3 %; Eosinophils # (auto) 0.04 K/uL (0.00-0.50); Eosinophils % (auto) 0.5 %; Hematocrit (blood only) 50.2 % (42.0-52.0); Hemoglobin 17.1 g/dl (14.0-18.0); Immature Granulocytes # (auto) 0.04 K/uL (0.01-0.20); Immature Granulocytes % (auto) 0.5 %; Lymphocytes # (auto) 1.04 K/uL (1.20-3.40); Lymphocytes % (auto) 13.4 %; Mean Corpuscular Hemoglobin 32.9 pg (25.0-34.0); Mean Corpuscular Hgb Conc 34.1 g/dL (32.0-36.0); Mean Corpuscular Volume 96.5 fL (80.0-100.0); Mean Platelet Volume 9.2 fL (9.4-12.4); Monocytes # (auto) 0.88 K/uL (0.11-0.59); Monocytes % (auto) 11.3 %; Neutrophils # (auto) 5.76 K/uL (1.40-6.50); Platelet Count 120 K/uL (130-400); RDW Coefficient of Variation 13.2 % (11.5-14.5); RDW Standard Deviation 47.4 fL (36.4-46.3); White Blood Count 7.78 K/ul (4.8-10.8)
--- NOTE | 2024-01-28 07:01 | CT Scan Report ---
CT OF THE HEAD WITHOUT CONTRAST CLINICAL HISTORY: hx of brain surgery. on iv heparin. f/u ct head COMPARISON STUDY: Head CT January 27, 2024. MRI of the brain August 02, 2022. CT DOSE: 625.8 mGy.cm TECHNIQUE: Helical axial images of the head were obtained without IV contrast. Automated exposure con trol was utilized for the study. A dose lowering technique was utilized adhering to the principles o f ALARA. FINDINGS: No acute intracranial hemorrhage is present. There is a right parietal craniotomy. Overlyin g dural thickening is postsurgical. A 3.4 cm posterior right temporal lobe hypodense focus on image 2 0 of 32 is similar to head CT of January 18, 2024. Hypodensity within the adjacent right frontal, parie blanquita and temporal lobes is similar to exam of January 18, 2024. This was also shown on head CT of Octobe r 2021. Small bilateral hypodense subdural collections have developed since CT of January 18, 2024. These are unchanged since head CT of January 27, 2024. There is mild mass effect with mild sulcal effa cement. Both subdural collections measure 9 mm in thickness. The appearance of the brain is unchanged since head CT of January 27, 2024. There are no calvarial fractures. IMPRESSION: 1. No acute intracranial hemorrhage. 2. No change in small subdural bilateral hypodense collection since CT of January 26, 2024. These have developed since earlier CT of January 18, 2024. These could reflect subdural hygromas or subacute subdu ral hematomas with mild mass effect. Continued short-term imaging follow-up is recommended. 3. Stable postoperative findings within the right cerebral hemisphere, as above. The findings favor p ostsurgical change however should be assessed on follow-up exams to ensure stability to exclude the p ossibility of underlying residual/recurrent tumor. ACT 112: Negative or not required by law. Electronically signed by: Clark Conte M.D. 01/28/2024 6:59 AM
[2024-01-28] MEDS: dexAMETHasone 4 MG TAB PO SCH (08:21)
[2024-01-28] MEDS: SERTRALINE HCL 50 MG TABLET PO SCH (08:22)
[2024-01-28] MEDS: PHENYTOIN SODIUM ER 100 MG CAP PO SCH (08:22)
[2024-01-28] MEDS: ATORVASTATIN 10 MG TAB PO SCH (08:22)
--- NOTE | 2024-01-28 10:13 | Communication Note ---
Date of Service: January 28, [address] head was done after iv heparin was therapeutic as per neurosurgery recommendation. IT showed: new bilateral subdural hygromas over the frontal and parietal lobe convexities. Otherwise, no significant change from the prior head CT. Discussed with Neurosurgery [place] [facility]f White and also transmitted images to [place]. Neurosurgery thought subdural hygromas mostly form last few days ago and advised to repeat ct head in six hours and hold heparin for now as patient was doing ok. Repeat ct head no change and neurosurgery recommended to restart iv heparin and advised to get stat ct head if any change in patient condition and transfer to [place]. If patient doing ok to get another ct head tomorrow morning. Neurosurgery also recommended if anytime high school combination teacher provider not comfortable can transfer patient to [place] and his cell no [phone]. Notified am provider.
[2024-01-28] MEDS ORDERED: HYDROmorphone INJ 0.5 MG/0.5 ML SYR IV PRN (11:54)
--- NOTE | 2024-01-28 11:56 | Pulmonology Progress Note ---
Date of Service January 28, 2024 Assessment & Plan (1) Pulmonary emboli: (2) Pleural effusion on right: (3) Right-sided chest pain: (4) Glioblastoma: (5) Obstructive sleep apnea, adult: Plan IMPRESSION: 73-year-old male with a significant past medical history of glioblastoma status post neurosurgical intervention x 2 with the most recent in August 2023 who presents with concerns of pleuritic RIGHT-sided chest pain and findings of multiple RIGHT-sided pulmonary emboli and concerns for RIGHT-sided heart strain. CTA chest 01/28/2024 personally reviewed: Significant pulmonary emboli appreciated bilaterally, burden more on the right side I do not see any significant right heart strain Right upper lobe 7 mm pulmonary nodule Minimal dependent ectasis on the right side 2D echo 01/27/2024: Mild concentric LVH, EF 55-60%, PASP 34 mmHg, RV normal in size and function RECOMMENDATIONS: --Submassive pulmonary emboli Significant clot burden appreciated to the RIGHT-sided pulmonary vasculature greater than left sPESI: 1, for history of malignancy, risk of mortality 8.9%. Given hemodynamic stability, continue with heparin drip -- RIGHT-sided pleural effusion - Likely from pulmonary emboli Small RIGHT-sided effusion noted on CT No need for any intervention right now --RIGHT-sided chest pain Pleuritic pain in the setting of large RIGHT-sided clot burden. Continue to manage pain as you are. --Pulmonary nodules 7 mm right upper lobe Recommend repeating a CAT scan in 6 months -- Glioblastoma Following up [facility] surgeon and oncology. -- Obstructive sleep apnea Continue with CPAP setting of 13 cm of water at night. Plan: Continue with heparin drip, if it is okay from the neurosurgery point of view then DOACs can be initiated later today Do recommend pain management and continue with incentive spirometry to prevent atelectasis For pulmonary nodule repeat CT chest in 4-6 months Case was discussed with Dr. Calixto Please note the above document was generated using voice recognition software. It may contain grammatical, syntax or spelling errors.Any formal questions or concerns about the content, text or information contained within the body of this dictation should be directly addressed to the provider for clarification. Admission and Anticipated Discharge Date Admission Date: January 27, 2024 Subjective Patient seen and examined at bedside. No adverse events overnight Patient was in distress when it comes to the pain on the right side. It is worse when he takes a deep breath in Denies any hemoptysis Fair appetite. No nausea or vomiting. No unusual headache or blurry vision. Review of Systems 2 Review of Systems: All systems reviewed & are unremarkable except as noted in Subjective Physical Exam 2 Physical Exam: Constitutional: No acute distress HEENT: EOMI, PERRLA, right-sided craniotomy scar appreciated Respiratory system: Decreased air entry bilaterally, no wheeze, no rhonchi, mild crackles bilaterally CVS: S1-S2 positive, no murmurs or gallops Abdomen: Soft, nontender, nondistended, positive bowel sounds x4 Extremities: +2 pulses bilaterally radialis/ dorsalis pedis, no cyanosis, no edema, left-sided weakness Neuro: Awake alert oriented x3 Psych: Normal mood and affect G/U: No Song Skin: no rashes, warm and dry Lymphatic: no cervical or axillary lymphadenopathy Results & Data Results & Data Vital Signs (Past 12 Hours) Vital Signs Temp Pulse Resp BP Pulse Ox O2 Del Method 01/28/24 08:54 Room Air, CPAP 01/28/24 08:00 37.2 C 74 18 145/79 H 93 Room Air 01/28/24 04:00 37.7 C H 85 16 154/91 H 89 L Laboratory Results 01/28/24 05:20 01/27/24 08:17 PG Care Time/CCT Total # of Minutes Spent Total Time Spent with Patient: Total time spent is greater than 50% in coordination of care (as documented) at patient's floor/unit and/or counseling patient: Coding Level of Care Code 15898 SUB INP/OBS CARE 3/50MIN Diagnoses Pulmonary emboli I26.99 Pleural effusion on right J90 Right-sided chest pain R07.9 Glioblastoma C71.9 Obstructive sleep apnea, adult G47.33
[2024-01-28] MEDS: HYDROCODONE/ACETAMOPHEN 5/325MG TAB PO PRN (13:06)
[2024-01-28 13:36] LABS: ANTI-Xa, UFH(UnfractionatedHep 0.49 IU/ml (0.3-0.7)
--- NOTE | 2024-01-28 14:41 | Hospitalist Progress Note ---
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 Right-sided chest pain Submassive Pulmonary emboli Pleural effusion on right Initially patient was accepted in transfer to [facility] as he has [place] [facility] IR felt there was no indication for thrombolysis or catheter directed therapy and felt his acute care could be managed here Has been on intravenous heparin drip Discussed case with patient's oncologist, Dr. Renteria Neurosurg wants a repeat head CT when Xa levels therapeutic Ultrasound of the extremities did show left peroneal vein DVT Echo of the heart did not show any right heart strain Appreciate pulmonary input and recommendation Control pain with prn [place] for moderate pain, IV dilaudid for severe pain, lidocaine patch supplemental oxygen as needed Clinically a little better but continues to have pleuritic chest pain on the right side Has been saturating normally on room air Likely to transfer to DOAC therapy from tomorrow Imaging studies --CTA Chest:IMPRESSION: 1. Pulmonary emboli as above with associated right heart strain. 2. Trace right pleural effusion with mild bibasilar atelectasis. 3. Partially calcified irregular 9 mm superior segment left lower lobe and noncalcified 7 mm right upper lobe pulmonary nodules. Six-month follow-up chest CT recommended. 4. Mild fusiform dilation of the ascending thoracic aorta, 4 cm. (2) Right-sided chest pain: (3) Glioblastoma: Plan: Glioblastoma Seizure d/o 2/2 above L sided hemiplegia 2/2 above follows [facility] [place]urg S/P mass resection/craniotomy in 2019; redo right frontal craniotomy for removal of tumor 08/12/23 Currently with evidence of disease progression Continue decadron therapy Discussed with Dr. Renteria who states pt to keep his scheduled follow up. He is no longer a candidate for the upcoming plan of bevacizumab Plan to start lomustine once approved Continue keppra, vimpat and dilantin Repeat CT scan of the head x 2 following the initial 1 did not show any significant abnormalities Plan to continue current management and repeat a CT scan tomorrow morning He does not have any new neurologic symptoms (4) Pleural effusion on right: (5) Hypertension: (6) Dyslipidemia: (7) Obstructive sleep apnea, adult: Plan Calcified lung nodules: Recommend follow up CT in 6 months Fusiform dilation of ascending thoracic aorta, 4cm oupt follow up Chronic conditions: RAMOS on Cpap HTN: currently not on antihypertensive therapy HLD: continue statin MDD: continue zoloft DVT ppx: IV heparin FULL CODE: discussed with pt and Dispo: admit to PCU, PT/OT consults, pt significant physical decline, family is open to rehab if this is recommended PCP: Guanaco Admission and Anticipated Discharge Date Admission Date: January 27, 2024 Subjective 01/28/2024 The patient was seen and examined in telemetry unit He was admitted with right-sided chest pain and shoulder pain worse with breathing and also shortness of breath Still complains to have pain in the right side of the chest anteriorly and posteriorly and worse with breathing coughing sneezing and while using spi rometer He has left-sided weakness which has not been progressed No new neurological symptoms Review of Systems Review of Systems: All systems reviewed and are unremarkable except as noted below Neurologic: Left-sided weakness about 3/5. No new neurologic symptoms and/or signs Physical Exam Physical Exam: Lying in bed with distress secondary to pain in the chest Constitutional: well developed, well nourished, + ill appearing and + obese Eyes: PERRL, conjunctivae normal, anicteric sclerae ENMT: external ear and nose normal, oropharynx normal Neck: trachea midline, no thyromegaly Respiratory: + respiratory distress (Minimal distress at rest. Test pain with breathing) Auscultation: + diminished lung sounds and + crackles (Minimal crackles at the bases) Cardiovascular: Rate/Rhythm: regular rate and regular rhythm; not tachycardic Heart Sounds: normal S1 and normal S2; no murmur Extremities: no edema Gastrointestinal (Abdomen): Inspection/Auscultation: normal bowel sounds; abdomen not distended Percussion/Palpation: abdomen soft; abdomen nontender Musculoskeletal: No acute arthritis involving any of the joints Neurologic: normal touch/pain/proprioception, moves all extremities (Less movement of the left-sided extremities) and + focal motor deficit (3/5 power all over left-sided extremities) Psychiatric: A+Ox3, euthymic affect Lymphatic: no cervical or axillary lymphadenopathy Results & Data Results & Data Vital Signs (Past 12 Hours) Vital Signs Temp Pulse Resp BP Pulse Ox O2 Del Method 01/28/24 11:47 37.0 C 18 115/75 95 Room Air 01/28/24 08:54 Room Air, CPAP 01/28/24 08:00 37.2 C 74 18 145/79 H 93 Room Air 01/28/24 04:00 37.7 C H 85 16 154/91 H 89 L Laboratory Results Short CBC 01/28/24 Range/Units 05:20 WBC 7.78 (4.8-10.8) K/ul Hgb 17.1 (14.0-18.0) g/dl Hct 50.2 (42.0-52.0) % Plt Count 120 L (130-400) K/uL Medications Administered Current Inpatient Medications Acetaminophen (Acetaminophen 325 Mg Tab) 650 mg PO Q4H PRN PRN Reason: Pain or Fever Stop: 02/26/24 15:55 Hydrocodone Bitart/Acetaminophen (Hydrocodone/Acetamophen 5/325mg Tab) 1 tab PO Q6H PRN PRN Reason: Moderate Pain (Scale 4, 5, 6) Stop: 02/10/24 15:55 Last Admin: 01/28/24 13:06 Dose: 1 tab Al Hydrox/Mg Hydrox/Simethicone (Aluminum/Magnesium Susp 30 Ml Udc) 15 ml PO Q4H PRN PRN Reason: Dyspepsia Stop: 02/26/24 15:55 Atorvastatin Calcium (Atorvastatin 10 Mg Tab) 10 mg PO QAM [facility] Stop: 02/27/24 08:59 Last Admin: 01/28/24 08:22 Dose: 10 mg Clonazepam (Clonazepam 0.5 Mg Tab) 0.5 mg PO TID PRN PRN Reason: Anxiety Stop: 02/26/24 15:55 Dexamethasone (Dexamethasone 4 Mg Tab) 2 mg PO DAILY@1700 [facility] Stop: 01/28/24 17:01 Last Admin: 01/27/24 17:17 Dose: 2 mg Dexamethasone (Dexamethasone 4 Mg Tab) 2 mg PO BID [facility] Stop: 02/28/24 08:59 Docusate Sodium (Docusate Sodium 100 Mg Cap) 100 mg PO BID [facility] Stop: 02/26/24 20:59 Last Admin: 01/28/24 08:22 Dose: 100 mg Hydromorphone HCl (Hydromorphone Inj 0.5 Mg/0.5 Ml Syr) 0.5 mg IV Q2H PRN PRN Reason: Severe Pain (Scale 7, 8, 9,10) Stop: 02/10/24 15:55 Heparin Sodium/Dextrose (Heparin Sodium/Dextrose) 25,000 units in 500 mls @ 29 mls/hr IV .[id number] [facility]; Protocol Stop: 02/26/24 11:59 Last Admin: 01/28/24 13:06 Dose: Not Given Lacosamide (Lacosamide 50 Mg Tablet) 200 mg PO BID [facility] Stop: 02/26/24 20:59 Last Admin: 01/28/24 08:22 Dose: 200 mg Levetiracetam (Levetiracetam 500 Mg Tab) 1,500 mg PO BID [facility] Stop: 02/26/24 20:59 Last Admin: 01/28/24 08:23 Dose: 1,500 mg Lidocaine (Lidocaine 5% 1 Patch) 1 patch TD QAM [facility] Stop: 02/26/24 13:59 Last Admin: 01/28/24 08:21 Dose: 1 patch Miscellaneous (Remove Lidoderm Patch) 1 each N/A DAILY@2100 [facility] Stop: 02/26/24 23:58 Last Admin: 01/28/24 00:13 Dose: 1 each Ondansetron HCl (Ondansetron Inj 2 Mg/Ml 2 Ml Vial) 4 mg IV Q6H PRN PRN Reason: Nausea Stop: 02/26/24 15:55 Phenytoin Sodium (Phenytoin Sodium Er 100 Mg Cap) 200 mg PO DAILY@2130 [facility] Stop: 02/26/24 21:29 Last Admin: 01/27/24 22:03 Dose: 200 mg Phenytoin Sodium (Phenytoin Sodium Er 100 Mg Cap) 100 mg PO BID@0800,1430 [facility] Stop: 02/27/24 07:59 Last Admin: 01/28/24 08:22 Dose: 100 mg Sertraline HCl (Sertraline Hcl 50 Mg Tablet) 50 mg PO DAILY [facility] Stop: 02/27/24 08:59 Last Admin: 01/28/24 08:22 Dose: 50 mg
[2024-01-28] MEDS: clonazePAM 0.5 MG TAB PO PRN (20:59)
[2024-01-29 06:46] LABS: ANTI-Xa, UFH(UnfractionatedHep 0.55 IU/ml (0.3-0.7); Basophils # (auto) 0.02 K/uL (0.00-0.20); Basophils % (auto) 0.3 %; Eosinophils # (auto) 0.09 K/uL (0.00-0.50); Eosinophils % (auto) 1.2 %; Hematocrit (blood only) 49.6 % (42.0-52.0); Hemoglobin 16.7 g/dl (14.0-18.0); Immature Granulocytes % (auto) 1.4 %; Lymphocytes # (auto) 1.45 K/uL (1.20-3.40); Lymphocytes % (auto) 19.9 %; Mean Corpuscular Hemoglobin 32.6 pg (25.0-34.0); Mean Corpuscular Hgb Conc 33.7 g/dL (32.0-36.0); Mean Corpuscular Volume 96.9 fL (80.0-100.0); Monocytes # (auto) 0.83 K/uL (0.11-0.59); Monocytes % (auto) 11.4 %; Neutrophils # (auto) 4.81 K/uL (1.40-6.50); Neutrophils % (auto) 65.8 %; Platelet Count 139 K/uL (130-400); RDW Coefficient of Variation 13.2 % (11.5-14.5); RDW Standard Deviation 47.5 fL (36.4-46.3); Red Blood Count 5.12 M/uL (4.70-6.10)
[2024-01-29 07:14] LABS: BUN Creatinine Ratio 20.4 (10-20); Calcium 9.1 mg/dl (8.6-10.3); Creatinine Clr Calc Pharmacy 67.5 ml/min; Est GFR (African American) 82.6 ml/min; Est GFR (Non-African American) 71.2 ml/min; Potassium 4.2 mmol/L (3.5-5.1)
--- NOTE | 2024-01-29 08:08 | Pulmonology Progress Note ---
Date of Service January 29, 2024 Assessment & Plan (1) Pulmonary emboli: (2) Pleural effusion on right: (3) Right-sided chest pain: (4) Glioblastoma: (5) Obstructive sleep apnea, adult: Plan IMPRESSION: 73-year-old male with a significant past medical history of glioblastoma status post neurosurgical intervention x 2 with the most recent in August 2023 who presents with concerns of pleuritic RIGHT-sided chest pain and findings of multiple RIGHT-sided pulmonary emboli and concerns for RIGHT-sided heart strain. CTA chest 01/28/2024 personally reviewed: Significant pulmonary emboli appreciated bilaterally, burden more on the right side I do not see any significant right heart strain Right upper lobe 7 mm pulmonary nodule Minimal dependent ectasis on the right side 2D echo 01/27/2024: Mild concentric LVH, EF 55-60%, PASP 34 mmHg, RV normal in size and function RECOMMENDATIONS: --Submassive pulmonary emboli Significant clot burden appreciated to the RIGHT-sided pulmonary vasculature greater than left sPESI: 1, for history of malignancy, risk of mortality 8.9%. Given hemodynamic stability, continue with heparin drip -- RIGHT-sided pleural effusion - Likely from pulmonary emboli Small RIGHT-sided effusion noted on CT No need for any intervention right now --RIGHT-sided chest pain Pleuritic pain in the setting of large RIGHT-sided clot burden. Continue to manage pain as you are. --Pulmonary nodules 7 mm right upper lobe Recommend repeating a CAT scan in 6 months -- Glioblastoma Following up [facility] surgeon and oncology. -- Obstructive sleep apnea Continue with CPAP setting of 13 cm of water at night. Plan: CT head did not show any significant change compared to the day of presentation Continue with heparin drip, if it is okay from the neurosurgery point of view then DOACs can be initiated today Do recommend pain management and continue with incentive spirometry to prevent atelectasis For pulmonary nodule repeat CT chest in 4-6 months Case was discussed with Dr. Calixto No further recommendation from pulmonary perspective, will sign off Please call directly with any questions Please note the above document was generated using voice recognition software. It may contain grammatical, syntax or spelling errors.Any formal questions or concerns about the content, text or information contained within the body of this dictation should be directly addressed to the provider for clarification. Admission and Anticipated Discharge Date Admission Date: January 27, 2024 Subjective Patient seen and examined at bedside. No acute distress, no respiratory Patient's was also in the room at the time of examination Was saturating 93% on room air with heart rate of 83. Still complains of pain on the right side of the chest but it is well-controlled with pain medications. Has been using incentive spirometry Denies any nausea vomiting Appetite is fair Review of Systems 2 Review of Systems: All systems reviewed & are unremarkable except as noted in Subjective Physical Exam 2 Physical Exam: Constitutional: No acute distress HEENT: EOMI, PERRLA, right-sided craniotomy scar appreciated Respiratory system: Decreased air entry bilaterally, no wheeze, no rhonchi, mild crackles bilaterally CVS: S1-S2 positive, no murmurs or gallops Abdomen: Soft, nontender, nondistended, positive bowel sounds x4 Extremities: +2 pulses bilaterally radialis/ dorsalis pedis, no cyanosis, no edema, left-sided weakness Neuro: Awake alert oriented x3 Psych: Normal mood and affect G/U: No Song Skin: no rashes, warm and dry Lymphatic: no cervical or axillary lymphadenopathy Results & Data Results & Data Vital Signs (Past 12 Hours) Vital Signs Temp Pulse Pulse Resp BP Pulse Ox O2 Del Method 01/29/24 03:19 36.6 C 75 18 138/88 94 Room Air, Nasal CPAP 01/29/24 01:04 86 01/28/24 22:36 37.2 C 87 20 127/81 92 Room Air, CPAP 01/28/24 21:00 Room Air, CPAP Laboratory Results 01/29/24 06:20 01/29/24 06:20 PG Care Time/CCT Total # of Minutes Spent Total Time Spent with Patient: Total time spent is greater than 50% in coordination of care (as documented) at patient's floor/unit and/or counseling patient: Coding Level of Care Code 26343 SUB INP/OBS CARE 2/35MIN Diagnoses Pulmonary emboli I26.99 Pleural effusion on right J90 Right-sided chest pain R07.9 Glioblastoma C71.9 Obstructive sleep apnea, adult G47.33
[2024-01-29] MEDS: dexAMETHasone 4 MG TAB PO SCH (08:12)
--- NOTE | 2024-01-29 09:39 | CT Scan Report ---
CT OF THE HEAD WITHOUT CONTRAST CLINICAL HISTORY: r/o bleed COMPARISON STUDY: Head CTs January 18, 2024, January 27, 2024 and January 28, 2024 CT DOSE: 625.8 mGy.cm TECHNIQUE: Helical axial images of the head were obtained without IV contrast. Automated exposure con trol was utilized for the study. A dose lowering technique was utilized adhering to the principles o f ALARA. FINDINGS: Right craniotomy is noted. There are stable postoperative findings, including dural thicken ing and a hypodense focus within the right frontotemporal region. Adjacent white matter hypodensity w ithin the right cerebral hemisphere remains unchanged. The ventricular system is normal. The basal ci sterns are patent. No acute intracranial hemorrhage is present. Small lateral subdural collections re main unchanged since CT of January 28, 2024. There is mild mass effect with sulcal effacement. The appe arance of the brain is unchanged. There are no calvarial fractures. IMPRESSION: 1. No acute intracranial hemorrhage. 2. No change in small bilateral subdural hypodense collections since CT of January 27, 2024. These may reflect subdural hygromas or subacute to chronic subdural hematomas with mild mass effect. 3. Stable postoperative findings within the right cerebral hemisphere, as described above. The findin gs favor postsurgical change however continued imaging follow-up is recommended. ACT 112: Negative or not required by law. Electronically signed by: Clark Conte M.D. 01/29/2024 9:37 AM
--- NOTE | 2024-01-29 14:50 | Hospitalist Progress Note ---
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 Right-sided chest pain Submassive Pulmonary emboli Pleural effusion on right Initially patient was accepted in transfer to [facility] as he [place] [facility] IR felt there was no indication for thrombolysis or catheter directed therapy and felt his acute care could be managed here Has been on intravenous heparin drip Discussed case with patient's oncologist, Dr. Renteria Neurosurg wants a repeat head CT when Xa levels therapeutic Ultrasound of the extremities did show left peroneal vein DVT Echo of the heart did not show any right heart strain Appreciate pulmonary input and recommendation Control pain with prn [place] for moderate pain, IV dilaudid for severe pain, lidocaine patch supplemental oxygen as needed Clinically a little better but continues to have pleuritic chest pain on the right side Has been saturating normally on room air Likely to transfer to DOAC therapy from tomorrow Discussed with Dr. Renteria the engineer of system development/oncologist and advised to have Lovenox preferably or even dog can be given She will find a date for next chemo after discussion with the pharmacist Discussed with the family members and the preferred to have Lovenox Will start Lovenox from this afternoon Imaging studies --CTA Chest:IMPRESSION: 1. Pulmonary emboli as above with associated right heart strain. 2. Trace right pleural effusion with mild bibasilar atelectasis. 3. Partially calcified irregular 9 mm superior segment left lower lobe and noncalcified 7 mm right upper lobe pulmonary nodules. Six-month follow-up chest CT recommended. 4. Mild fusiform dilation of the ascending thoracic aorta, 4 cm. (2) Right-sided chest pain: (3) Glioblastoma: Plan: Glioblastoma Seizure d/o 2/2 above L sided hemiplegia 2/2 above follows [facility] [place] and neurosurg S/P mass resection/craniotomy in 2019; redo right frontal craniotomy for removal of tumor 08/12/23 Currently with evidence of disease progression Continue decadron therapy Discussed with Dr. Renteria who states pt to keep his scheduled follow up. He is no longer a candidate for the upcoming plan of bevacizumab Plan to start lomustine once approved Continue keppra, vimpat and dilantin Repeat CT scan of the head x 2 following the initial 1 did not show any significant abnormalities Plan to continue current management and repeat a CT scan tomorrow morning He does not have any new neurologic symptoms Repeat CT scan of the head did not show any change compared with prior CTs Discussed with Dr. Ruffin the neurosurgeon will schedule an appointment within 2 weeks Will get PT and OT evaluation Possible discharge on Wednesday depending on the recommendation (4) Pleural effusion on right: (5) Hypertension: (6) Dyslipidemia: (7) Obstructive sleep apnea, adult: Plan Calcified lung nodules: Recommend follow up CT in 6 months Fusiform dilation of ascending thoracic aorta, 4cm oupt follow up Chronic conditions: RAMOS on Cpap HTN: currently not on antihypertensive therapy HLD: continue statin MDD: continue zoloft DVT ppx: IV heparin FULL CODE: discussed with pt and Dispo: admit to PCU, PT/OT consults, pt significant physical decline, family is open to rehab if this is recommended PCP: Guanaco Admission and Anticipated Discharge Date Admission Date: January 27, 2024 Subjective 01/28/2024 The patient was seen and examined in telemetry unit He was admitted with right-sided chest pain and shoulder pain worse with breathing and also shortness of breath Still complains to have pain in the right side of the chest anteriorly and posteriorly and worse with breathing coughing sneezing and while using spirometer He has left-sided weakness which has not been progressed No new neurological symptoms 01/29/2024 The patient was seen and examined in telemetry unit in presence of the family members He has been feeling much better Pain in the chest is decreased. No shortness of breath and Does not have any new neurological symptoms Review of Systems Review of Systems: All systems reviewed and are unremarkable except as noted below Neurologic: Left-sided weakness about 3/5. No new neurologic symptoms and/or signs Physical Exam Physical Exam: Lying in bed with distress secondary to pain in the chest Constitutional: well developed, well nourished, + ill appearing and + obese Eyes: PERRL, conjunctivae normal, anicteric sclerae ENMT: external ear and nose normal, oropharynx normal Neck: trachea midline, no thyromegaly Respiratory: + respiratory distress (Minimal distress at rest. Test pain with breathing) Auscultation: + diminished lung sounds and + crackles (Minimal crackles at the bases) Cardiovascular: Rate/Rhythm: regular rate and regular rhythm; not tachycardic Heart Sounds: normal S1 and normal S2; no murmur Extremities: no edema Gastrointestinal (Abdomen): Inspection/Auscultation: normal bowel sounds; abdomen not distended Percussion/Palpation: abdomen soft; abdomen nontender Musculoskeletal: All systems reviewed and are unremarkable except as noted below Neurologic: normal touch/pain/proprioception, moves all extremities (Less movement of the left-sided extremities) and + focal motor deficit (3/5 power all over left-sided extremities) Psychiatric: A+Ox3, euthymic affect Lymphatic: no cervical or axillary lymphadenopathy Results & Data Results & Data Vital Signs (Past 12 Hours) Vital Signs Temp Pulse Pulse Resp BP Pulse Ox O2 Del Method 01/29/24 11:53 36.6 C 86 16 124/69 96 Room Air 01/29/24 10:29 77 01/29/24 08:00 36.7 C 83 18 120/77 97 Room Air 01/29/24 07:59 Room Air, CPAP 01/29/24 03:19 36.6 C 75 18 138/88 94 Room Air, Nasal CPAP Laboratory Results Short CBC 01/29/24 Range/Units 06:20 WBC 7.30 (4.8-10.8) K/ul Hgb 16.7 (14.0-18.0) g/dl Hct 49.6 (42.0-52.0) % Plt Count 139 (130-400) K/uL BMP 01/29/24 06:20 Sodium 137 Potassium 4.2 Chloride 103 Carbon Dioxide 31 BUN 21 Creatinine 1.03 Glucose 122 H Calcium 9.1 Medications Administered Current Inpatient Medications Acetaminophen (Acetaminophen 325 Mg Tab) 650 mg PO Q4H PRN PRN Reason: Pain or Fever Stop: 02/26/24 15:55 Hydrocodone Bitart/Acetaminophen (Hydrocodone/Acetamophen 5/325mg Tab) 1 tab PO Q6H PRN PRN Reason: Moderate Pain (Scale 4, 5, 6) Stop: 02/10/24 15:55 Last Admin: 01/29/24 06:32 Dose: 1 tab Al Hydrox/Mg Hydrox/Simethicone (Aluminum/Magnesium Susp 30 Ml Udc) 15 ml PO Q4H PRN PRN Reason: Dyspepsia Stop: 02/26/24 15:55 Atorvastatin Calcium (Atorvastatin 10 Mg Tab) 10 mg PO QAM [facility] Stop: 02/27/24 08:59 Last Admin: 01/29/24 08:13 Dose: 10 mg Clonazepam (Clonazepam 0.5 Mg Tab) 0.5 mg PO TID PRN PRN Reason: Anxiety Stop: 02/26/24 15:55 Last Admin: 01/28/24 20:59 Dose: 0.5 mg Dexamethasone (Dexamethasone 4 Mg Tab) 2 mg PO BID [facility] Stop: 02/28/24 08:59 Last Admin: 01/29/24 08:12 Dose: 2 mg Docusate Sodium (Docusate Sodium 100 Mg Cap) 100 mg PO BID [facility] Stop: 02/26/24 20:59 Last Admin: 01/29/24 08:13 Dose: 100 mg Hydromorphone HCl (Hydromorphone Inj 0.5 Mg/0.5 Ml Syr) 0.5 mg IV Q2H PRN PRN Reason: Severe Pain (Scale 7, 8, 9,10) Stop: 02/10/24 15:55 Heparin Sodium/Dextrose (Heparin Sodium/Dextrose) 25,000 units in 500 mls @ 29 mls/hr IV .[id number] [facility]; Protocol Stop: 02/26/24 11:59 Last Admin: 01/29/24 03:54 Dose: 1,450 units/hr, 29 mls/hr Lacosamide (Lacosamide 50 Mg Tablet) 200 mg PO BID [facility] Stop: 02/26/24 20:59 Last Admin: 01/29/24 08:53 Dose: 200 mg Levetiracetam (Levetiracetam 500 Mg Tab) 1,500 mg PO BID [facility] Stop: 02/26/24 20:59 Last Admin: 01/29/24 08:11 Dose: 1,500 mg Lidocaine (Lidocaine 5% 1 Patch) 1 patch TD QAM [facility] Stop: 02/26/24 13:59 Last Admin: 01/29/24 08:12 Dose: 1 patch Miscellaneous (Remove Lidoderm Patch) 1 each N/A DAILY@2100 [facility] Stop: 02/26/24 23:58 Last Admin: 01/28/24 21:45 Dose: 1 each Ondansetron HCl (Ondansetron Inj 2 Mg/Ml 2 Ml Vial) 4 mg IV Q6H PRN PRN Reason: Nausea Stop: 02/26/24 15:55 Phenytoin Sodium (Phenytoin Sodium Er 100 Mg Cap) 200 mg PO DAILY@2130 [facility] Stop: 02/26/24 21:29 Last Admin: 01/28/24 21:01 Dose: 200 mg Phenytoin Sodium (Phenytoin Sodium Er 100 Mg Cap) 100 mg PO BID@0800,1430 [facility] Stop: 02/27/24 07:59 Last Admin: 01/29/24 08:14 Dose: 100 mg Sertraline HCl (Sertraline Hcl 50 Mg Tablet) 50 mg PO DAILY [facility] Stop: 02/27/24 08:59 Last Admin: 01/29/24 08:12 Dose: 50 mg
[2024-01-29] MEDS: POLYETHYLENE (MIRALAX) 17 GM PACK PO SCH (15:59)
[2024-01-29] MEDS: ENOXAPARIN 100 MG/1ML SYR SQ SCH (21:15)
[2024-01-30 07:52] LABS: ANTI-Xa, UFH(UnfractionatedHep 0.44 IU/ml (0.3-0.7)
--- NOTE | 2024-01-30 08:11 | Pulmonology Progress Note ---
Date of Service January 30, 2024 Assessment & Plan (1) Pulmonary emboli: (2) Pleural effusion on right: (3) Right-sided chest pain: (4) Glioblastoma: (5) Obstructive sleep apnea, adult: Plan IMPRESSION: 73-year-old male with a significant past medical history of glioblastoma status post neurosurgical intervention x 2 with the most recent in August 2023 who presents with concerns of pleuritic RIGHT-sided chest pain and findings of multiple RIGHT-sided pulmonary emboli and concerns for RIGHT-sided heart strain. CTA chest 01/28/2024 personally reviewed: Significant pulmonary emboli appreciated bilaterally, burden more on the right side I do not see any significant right heart strain Right upper lobe 7 mm pulmonary nodule Minimal dependent ectasis on the right side 2D echo 01/27/2024: Mild concentric LVH, EF 55-60%, PASP 34 mmHg, RV normal in size and function RECOMMENDATIONS: --Submassive pulmonary emboli Significant clot burden appreciated to the RIGHT-sided pulmonary vasculature greater than left sPESI: 1, for history of malignancy, risk of mortality 8.9%. Given hemodynamic stability, continue with heparin drip -- RIGHT-sided pleural effusion - Likely from pulmonary emboli Small RIGHT-sided effusion noted on CT No need for any intervention right now --RIGHT-sided chest pain Pleuritic pain in the setting of large RIGHT-sided clot burden. Continue to manage pain as you are. --Pulmonary nodules 7 mm right upper lobe Recommend repeating a CAT scan in 6 months -- Glioblastoma Following up [facility] surgeon and oncology. -- Obstructive sleep apnea Continue with CPAP setting of 13 cm of water at night. Plan: Continue with Lovenox for at least 3-6 months, can prolong the duration based on the response to underlying cancer Continue with pain management and continue with incentive spirometry to prevent atelectasis For pulmonary nodule repeat CT chest in 4-6 months Case was discussed with Dr. Calixto No further recommendation from pulmonary perspective, will sign off Please call directly with any questions Please note the above document was generated using voice recognition software. It may contain grammatical, syntax or spelling errors.Any formal questions or concerns about the content, text or information contained within the body of this dictation should be directly addressed to the provider for clarification. Admission and Anticipated Discharge Date Admission Date: January 27, 2024 Subjective Patient seen and examined at bedside. No acute distress, no adverse events overnight Patient stated that he is feeling better today The chest pain has decreased in intensity and frequency Has been using incentive spirometry Did have some blood streaked phlegm early in the morning It has not recurred since. Fair appetite No headache, no blurry vision He was saturating 93% on room air at the time of examination Review of Systems 2 Review of Systems: All systems reviewed & are unremarkable except as noted in Subjective Physical Exam 2 Physical Exam: Constitutional: No acute distress HEENT: EOMI, PERRLA, right-sided craniotomy scar appreciated Respiratory system: Decreased air entry bilaterally, no wheeze, no rhonchi, mild crackles bilaterally CVS: S1-S2 positive, no murmurs or gallops Abdomen: Soft, nontender, nondistended, positive bowel sounds x4 Extremities: +2 pulses bilaterally radialis/ dorsalis pedis, no cyanosis, no edema, left-sided weakness Neuro: Awake alert oriented x3 Psych: Normal mood and affect G/U: No Song Skin: no rashes, warm and dry Lymphatic: no cervical or axillary lymphadenopathy Results & Data Results & Data Vital Signs (Past 12 Hours) Vital Signs Temp Pulse Pulse Resp BP Pulse Ox O2 Del Method 01/30/24 07:54 Room Air, CPAP 01/30/24 07:30 36.4 C L 79 18 93 Room Air 01/30/24 03:18 37.2 C 80 20 159/90 H 95 Room Air 01/29/24 23:00 86 01/29/24 22:18 37.0 C 84 18 144/81 H 94 Room Air, CPAP 01/29/24 21:00 Room Air, CPAP Laboratory Results 01/29/24 06:20 01/29/24 06:20 PG Care Time/CCT Total # of Minutes Spent Total Time Spent with Patient: Total time spent is greater than 50% in coordination of care (as documented) at patient's floor/unit and/or counseling patient: Coding Level of Care Code 82091 SUB INP/OBS CARE 2/35MIN Diagnoses Pulmonary emboli I26.99 Pleural effusion on right J90 Right-sided chest pain R07.9 Glioblastoma C71.9 Obstructive sleep apnea, adult G47.33
--- NOTE | 2024-01-30 10:40 | Hospitalist Progress Note ---
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 Right-sided chest pain Submassive Pulmonary emboli Pleural effusion on right Initially patient was accepted in transfer to [facility] as he has multiple specialist at [facility]; however IR felt there was no indication for thrombolysis or catheter directed therapy and felt his acute care could be managed here Has been on intravenous heparin drip Discussed case with patient's oncologist, Dr. Rentreia Neurosurg wants a repeat head CT when Xa levels therapeutic Ultrasound of the extremities did show left peroneal vein DVT Echo of the heart did not show any right heart strain Appreciate pulmonary input and recommendation Control pain with prn [place] for moderate pain, IV dilaudid for severe pain, lidocaine patch supplemental oxygen as needed Clinically a little better but continues to have pleuritic chest pain on the right side Has been saturating normally on room air Likely to transfer to DOAC therapy from tomorrow Discussed with Dr. Renteria the director trade/oncologist and advised to have Lovenox preferably or even dog can be given She will find a date for next chemo after discussion with the pharmacist Discussed with the family members and the preferred to have Lovenox Has been on subcu Lovenox since last evening Likely discharge tomorrow on subcu Lovenox once a day Imaging studies --CTA Chest:IMPRESSION: 1. Pulmonary emboli as above with associated right heart strain. 2. Trace right pleural effusion with mild bibasilar atelectasis. 3. Partially calcified irregular 9 mm superior segment left lower lobe and noncalcified 7 mm right upper lobe pulmonary nodules. Six-month follow-up chest CT recommended. 4. Mild fusiform dilation of the ascending thoracic aorta, 4 cm. 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 Renteria who states pt to keep his scheduled follow up. He is no longer a candidate for the upcoming plan of bevacizumab Plan to start lomustine once approved Continue keppra, vimpat and dilantin Repeat CT scan of the head x 2 following the initial 1 did not show any significant abnormalities Plan to continue current management and repeat a CT scan tomorrow morning He does not have any new neurologic symptoms Repeat CT scan of the head did not show any change compared with prior CTs Discussed with Dr. Ruffin the neurosurgeon will schedule an appointment within 2 weeks Will get PT and OT evaluation Possible discharge on Wednesday depending on the recommendation (4) Pleural effusion on right: (5) Hypertension: (6) Dyslipidemia: (7) Obstructive sleep apnea, adult: Plan Calcified lung nodules: Recommend follow up CT in 6 months Fusiform dilation of ascending thoracic aorta, 4cm oupt follow up Chronic conditions: RAMOS on Cpap HTN: currently not on antihypertensive therapy HLD: continue statin MDD: continue zoloft DVT ppx: IV heparin FULL CODE: discussed with pt and Dispo: admit to PCU, PT/OT consults, pt significant physical decline, family is open to rehab if this is recommended PCP: Guanaco Awaiting PT OT evaluation possible discharge tomorrow Admission and Anticipated Discharge Date Admission Date: January 27, 2024 Subjective 01/28/2024 The patient was seen and examined in telemetry unit He was admitted with right-sided chest pain and shoulder pain worse with breathing and also shortness of breath Still complains to have pain in the right side of the chest anteriorly and posteriorly and worse with breathing coughing sneezing and while using spirometer He has left-sided weakness which has not been progressed No new neurological symptoms 01/29/2024 The patient was seen and examined in telemetry unit in presence of the family members He has been feeling much better Pain in the chest is decreased. No shortness of breath and Does not have any new neurological symptoms 01/30/2024 The patient was seen and examined in the telemetry unit He has been feeling much better His pain in the right chest has decreased and he does not have any new neurological symptoms Has had minimal questionable hemoptysis but no more Review of Systems Review of Systems: All systems reviewed and are unremarkable except as noted below Neurologic: Left-sided weakness about 3/5. No new neurologic symptoms and/or signs Physical Exam Physical Exam: Lying in bed with distress secondary to pain in the chest Constitutional: well developed, well nourished, + ill appearing and + obese Eyes: PERRL, conjunctivae normal, anicteric sclerae ENMT: external ear and nose normal, oropharynx normal Neck: trachea midline, no thyromegaly Respiratory: + respiratory distress (Minimal distress at rest. Test pain with breathing) Auscultation: + diminished lung sounds and + crackles (Minimal crackles at the bases) Cardiovascular: Rate/Rhythm: regular rate and regular rhythm; not tachycardic Heart Sounds: normal S1 and normal S2; no murmur Extremities: no edema Gastrointestinal (Abdomen): Inspection/Auscultation: normal bowel sounds; abdomen not distended Percussion/Palpation: abdomen soft; abdomen nontender No acute arthritis involving any of the joints Neurologic: normal touch/pain/proprioception, moves all extremities (Less movement of the left-sided extremities) and + focal motor deficit (3/5 power all over left-sided extremities) Psychiatric: A+Ox3, euthymic affect Lymphatic: no cervical or axillary lymphadenopathy Results & Data Results & Data Vital Signs (Past 12 Hours) Vital Signs Temp Pulse Pulse Resp BP Pulse Ox O2 Del Method 01/30/24 09:00 71 01/30/24 07:54 Room Air, CPAP 01/30/24 07:30 36.4 C L 79 18 93 Room Air 01/30/24 03:18 37.2 C 80 20 159/90 H 95 Room Air 01/29/24 23:00 86 Medications Administered Current Inpatient Medications Acetaminophen (Acetaminophen 325 Mg Tab) 650 mg PO Q4H PRN PRN Reason: Pain or Fever Stop: 02/26/24 15:55 Hydrocodone Bitart/Acetaminophen (Hydrocodone/Acetamophen 5/325mg Tab) 1 tab PO Q6H PRN PRN Reason: Moderate Pain (Scale 4, 5, 6) Stop: 02/10/24 15:55 Last Admin: 01/29/24 21:08 Dose: 1 tab Al Hydrox/Mg Hydrox/Simethicone (Aluminum/Magnesium Susp 30 Ml Udc) 15 ml PO Q4H PRN PRN Reason: Dyspepsia Stop: 02/26/24 15:55 Atorvastatin Calcium (Atorvastatin 10 Mg Tab) 10 mg PO QAM [facility] Stop: 02/27/24 08:59 Last Admin: 01/30/24 07:39 Dose: 10 mg Clonazepam (Clonazepam 0.5 Mg Tab) 0.5 mg PO TID PRN PRN Reason: Anxiety Stop: 02/26/24 15:55 Last Admin: 01/30/24 10:25 Dose: 0.5 mg Dexamethasone (Dexamethasone 4 Mg Tab) 2 mg PO BID [facility] Stop: 02/28/24 08:59 Last Admin: 01/30/24 07:38 Dose: 2 mg Docusate Sodium (Docusate Sodium 100 Mg Cap) 100 mg PO BID [facility] Stop: 02/26/24 20:59 Last Admin: 01/30/24 07:37 Dose: 100 mg Enoxaparin Sodium (Enoxaparin 100 Mg/1ml Syr) 90 mg SQ Q12 [facility] Stop: 02/28/24 20:59 Last Admin: 01/30/24 07:39 Dose: 90 mg Hydromorphone HCl (Hydromorphone Inj 0.5 Mg/0.5 Ml Syr) 0.5 mg IV Q2H PRN PRN Reason: Severe Pain (Scale 7, 8, 9,10) Stop: 02/10/24 15:55 Lacosamide (Lacosamide 50 Mg Tablet) 200 mg PO BID [facility] Stop: 02/26/24 20:59 Last Admin: 01/30/24 08:40 Dose: 200 mg Levetiracetam (Levetiracetam 500 Mg Tab) 1,500 mg PO BID [facility] Stop: 02/26/24 20:59 Last Admin: 01/30/24 07:37 Dose: 1,500 mg Lidocaine (Lidocaine 5% 1 Patch) 1 patch TD QAM [facility] Stop: 02/26/24 13:59 Last Admin: 01/30/24 07:38 Dose: 1 patch Miscellaneous (Remove Lidoderm Patch) 1 each N/A DAILY@2100 [facility] Stop: 02/26/24 23:58 Last Admin: 01/29/24 21:16 Dose: 1 each Ondansetron HCl (Ondansetron Inj 2 Mg/Ml 2 Ml Vial) 4 mg IV Q6H PRN PRN Reason: Nausea Stop: 02/26/24 15:55 Phenytoin Sodium (Phenytoin Sodium Er 100 Mg Cap) 200 mg PO DAILY@2130 [facility] Stop: 02/26/24 21:29 Last Admin: 01/29/24 21:14 Dose: 200 mg Phenytoin Sodium (Phenytoin Sodium Er 100 Mg Cap) 100 mg PO BID@0800,1430 [facility] Stop: 02/27/24 07:59 Last Admin: 01/30/24 07:37 Dose: 100 mg Polyethylene Glycol (Polyethylene (Miralax) 17 Gm Pack) 17 gm PO DAILY [facility] Stop: 02/28/24 15:44 Last Admin: 01/30/24 07:38 Dose: 17 gm Sertraline HCl (Sertraline Hcl 50 Mg Tablet) 50 mg PO DAILY [facility] Stop: 02/27/24 08:59 Last Admin: 01/30/24 07:38 Dose: 50 mg
[2024-01-30] MEDS: ACETAMINOPHEN 325 MG TAB PO PRN (20:21)
[2024-01-31 07:10] LABS: Basophils # (auto) 0.03 K/uL (0.00-0.20); Basophils % (auto) 0.5 %; Eosinophils # (auto) 0.06 K/uL (0.00-0.50); Eosinophils % (auto) 0.9 %; Hemoglobin 16.7 g/dl (14.0-18.0); Immature Granulocytes # (auto) 0.07 K/uL (0.01-0.20); Immature Granulocytes % (auto) 1.1 %; Lymphocytes # (auto) 1.16 K/uL (1.20-3.40); Lymphocytes % (auto) 18.2 %; Mean Corpuscular Hemoglobin 33.4 pg (25.0-34.0); Mean Corpuscular Hgb Conc 34.1 g/dL (32.0-36.0); Mean Platelet Volume 9.2 fL (9.4-12.4); Monocytes # (auto) 0.58 K/uL (0.11-0.59); Monocytes % (auto) 9.1 %; Neutrophils # (auto) 4.46 K/uL (1.40-6.50); Neutrophils % (auto) 70.2 %; Platelet Count 180 K/uL (130-400); RDW Coefficient of Variation 13.1 % (11.5-14.5); RDW Standard Deviation 47.2 fL (36.4-46.3); White Blood Count 6.36 K/ul (4.8-10.8)
[2024-01-31 07:36] LABS: Calcium 8.9 mg/dl (8.6-10.3); Creatinine Clr Calc Pharmacy 75.5 ml/min; Est GFR (African American) 94.6 ml/min; Est GFR (Non-African American) 81.6 ml/min; Potassium 4.5 mmol/L (3.5-5.1)
--- NOTE | 2024-01-31 15:58 | Hospitalist Progress Note ---
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 Right-sided chest pain Submassive Pulmonary emboli Pleural effusion on right Initially patient was accepted in transfer to [facility] as he has multiple specialist at [facility]; however IR felt there was no indication for thrombolysis or catheter directed therapy and felt his acute care could be managed here Has been on intravenous heparin drip Discussed case with patient's oncologist, Dr. Renteria Neurosurg wants a repeat head CT when Xa levels therapeutic Ultrasound of the extremities did show left peroneal vein DVT Echo of the heart did not show any right heart strain Appreciate pulmonary input and recommendation Control pain with prn [place] for moderate pain, IV dilaudid for severe pain, lidocaine patch supplemental oxygen as needed Clinically a little better but continues to have pleuritic chest pain on the right side Has been saturating normally on room air Likely to transfer to DOAC therapy from tomorrow Discussed with Dr. Renteria the logistics analytics manager/oncologist and advised to have Lovenox preferably or even dog can be given She will find a date for next chemo after discussion with the pharmacist Discussed with the family members and the preferred to have Lovenox Has been on subcu Lovenox since last evening Likely discharge tomorrow on subcu Lovenox once a day Clinically much better and remains stable Has had PT and OT evaluation and recommended rehab Imaging studies --CTA Chest:IMPRESSION: 1. Pulmonary emboli as above with associated right heart strain. 2. Trace right pleural effusion with mild bibasilar atelectasis. 3. Partially calcified irregular 9 mm superior segment left lower lobe and noncalcified 7 mm right upper lobe pulmonary nodules. Six-month follow-up chest CT recommended. 4. Mild fusiform dilation of the ascending thoracic aorta, 4 cm. (2) Right-sided chest pain: (3) Glioblastoma: Plan: Glioblastoma Seizure d/o 2/2 above L sided hemiplegia 2/2 above follows [facility] onc and neurosurg S/P mass resection/craniotomy in 2019; redo right frontal craniotomy for removal of tumor 08/12/23 Currently with evidence of disease progression Continue decadron therapy Discussed with Dr. Renteria who states pt to keep his scheduled follow up. He is no longer a candidate for the upcoming plan of bevacizumab Plan to start lomustine once approved Continue keppra, vimpat and dilantin Repeat CT scan of the head x 2 following the initial 1 did not show any significant abnormalities Plan to continue current management and repeat a CT scan tomorrow morning He does not have any new neurologic symptoms Repeat CT scan of the head did not show any change compared with prior CTs Discussed with Dr. Ruffin the neurosurgeon will schedule an appointment within 2 weeks Will get PT and OT evaluation Possible discharge on Wednesday depending on the recommendation Awaiting placement (4) Pleural effusion on right: (5) Hypertension: (6) Dyslipidemia: (7) Obstructive sleep apnea, adult: Plan Calcified lung nodules: Recommend follow up CT in 6 months Fusiform dilation of ascending thoracic aorta, 4cm oupt follow up Chronic conditions: RAMOS on Cpap HTN: currently not on antihypertensive therapy HLD: continue statin MDD: continue zoloft DVT ppx: IV heparin FULL CODE: discussed with pt and Dispo: admit to PCU, PT/OT consults, pt significant physical decline, family is open to rehab if this is recommended PCP: Guanaco Awaiting PT OT evaluation recommended rehab Admission and Anticipated Discharge Date Admission Date: January 27, 2024 Subjective 01/28/2024 The patient was seen and examined in telemetry unit He was admitted with right-sided chest pain and shoulder pain worse with breathing and also shortness of breath Still complains to have pain in the right side of the chest anteriorly and posteriorly and worse with breathing coughing sneezing and while using spirometer He has left-sided weakness which has not been progressed No new neurological symptoms 01/29/2024 The patient was seen and examined in telemetry unit in presence of the family members He has been feeling much better Pain in the chest is decreased. No shortness of breath and Does not have any new neurological symptoms 01/30/2024 The patient was seen and examined in the telemetry unit He has been feeling much better His pain in the right chest has decreased and he does not have any new neurological symptoms Has had minimal questionable hemoptysis but no more 01/31/2024 Patient was seen and examined in telemetry unit in presence of the He has been feeling much better Chest pain with breathing is improved No new neurological symptoms Review of Systems Review of Systems: All systems reviewed and are unremarkable except as noted below Neurologic: Left-sided weakness about 3/5. No new neurologic symptoms and/or signs Physical Exam Physical Exam: Lying in bed with distress secondary to pain in the chest Constitutional: well developed, well nourished, + ill appearing and + obese Eyes: PERRL, conjunctivae normal, anicteric sclerae ENMT: external ear and nose normal, oropharynx normal Neck: trachea midline, no thyromegaly Respiratory: + respiratory distress (Minimal distress at rest. Test pain with breathing) Auscultation: + diminished lung sounds and + crackles (Minimal crackles at the bases) Cardiovascular: Rate/Rhythm: regular rate and regular rhythm; not tachycardic Heart Sounds: normal S1 and normal S2; no murmur Extremities: no edema Gastrointestinal (Abdomen): Inspection/Auscultation: normal bowel sounds; abdomen not distended Percussion/Palpation: abdomen soft; abdomen nontender Musculoskeletal: No acute arthritis involving of the joint. Moves left upper extremity more than the lower extremity Neurologic: normal touch/pain/proprioception, moves all extremities (Less movement of the left-sided extremities) and + focal motor deficit (3/5 power all over left-sided extremities) Psychiatric: A+Ox3, euthymic affect Lymphatic: no cervical or axillary lymphadenopathy Results & Data Results & Data Vital Signs (Past 12 Hours) Vital Signs Temp Pulse Pulse Resp BP Pulse Ox O2 Del Method 01/31/24 11:55 36.6 C 92 H 17 114/81 92 Room Air 01/31/24 11:06 72 01/31/24 07:50 37.0 C 83 18 131/90 94 Room Air 01/31/24 07:28 CPAP Laboratory Results Short CBC 01/31/24 Range/Units 06:04 WBC 6.36 (4.8-10.8) K/ul Hgb 16.7 (14.0-18.0) g/dl Hct 49.0 (42.0-52.0) % Plt Count 180 (130-400) K/uL BMP 01/31/24 06:04 Sodium 137 Potassium 4.5 Chloride 103 Carbon Dioxide 29 BUN 23 Creatinine 0.92 Glucose 106 H Calcium 8.9 Medications Administered Current Inpatient Medications Acetaminophen (Acetaminophen 325 Mg Tab) 650 mg PO Q4H PRN PRN Reason: Pain or Fever Stop: 02/26/24 15:55 Last Admin: 01/30/24 20:21 Dose: 650 mg Hydrocodone Bitart/Acetaminophen (Hydrocodone/Acetamophen 5/325mg Tab) 1 tab PO Q6H PRN PRN Reason: Moderate Pain (Scale 4, 5, 6) Stop: 02/10/24 15:55 Last Admin: 01/29/24 21:08 Dose: 1 tab Al Hydrox/Mg Hydrox/Simethicone (Aluminum/Magnesium Susp 30 Ml Udc) 15 ml PO Q4H PRN PRN Reason: Dyspepsia Stop: 02/26/24 15:55 Atorvastatin Calcium (Atorvastatin 10 Mg Tab) 10 mg PO QAM [facility] Stop: 02/27/24 08:59 Last Admin: 01/31/24 09:04 Dose: 10 mg Clonazepam (Clonazepam 0.5 Mg Tab) 0.5 mg PO TID PRN PRN Reason: Anxiety Stop: 02/26/24 15:55 Last Admin: 01/30/24 10:25 Dose: 0.5 mg Dexamethasone (Dexamethasone 4 Mg Tab) 2 mg PO BID [facility] Stop: 02/28/24 08:59 Last Admin: 01/31/24 09:04 Dose: 2 mg Docusate Sodium (Docusate Sodium 100 Mg Cap) 100 mg PO BID [facility] Stop: 02/26/24 20:59 Last Admin: 01/31/24 09:04 Dose: 100 mg Enoxaparin Sodium (Enoxaparin 100 Mg/1ml Syr) 90 mg SQ Q12 [facility] Stop: 02/28/24 20:59 Last Admin: 01/31/24 09:04 Dose: 90 mg Hydromorphone HCl (Hydromorphone Inj 0.5 Mg/0.5 Ml Syr) 0.5 mg IV Q2H PRN PRN Reason: Severe Pain (Scale 7, 8, 9,10) Stop: 02/10/24 15:55 Lacosamide (Lacosamide 50 Mg Tablet) 200 mg PO BID [facility] Stop: 02/26/24 20:59 Last Admin: 01/31/24 09:26 Dose: 200 mg Levetiracetam (Levetiracetam 500 Mg Tab) 1,500 mg PO BID [facility] Stop: 02/26/24 20:59 Last Admin: 01/31/24 09:05 Dose: 1,500 mg Lidocaine (Lidocaine 5% 1 Patch) 1 patch TD QAM [facility] Stop: 02/26/24 13:59 Last Admin: 01/31/24 09:03 Dose: 1 patch Miscellaneous (Remove Lidoderm Patch) 1 each N/A DAILY@2100 [facility] Stop: 02/26/24 23:58 Last Admin: 01/30/24 20:19 Dose: 1 each Ondansetron HCl (Ondansetron Inj 2 Mg/Ml 2 Ml Vial) 4 mg IV Q6H PRN PRN Reason: Nausea Stop: 02/26/24 15:55 Phenytoin Sodium (Phenytoin Sodium Er 100 Mg Cap) 200 mg PO DAILY@2130 [facility] Stop: 02/26/24 21:29 Last Admin: 01/30/24 20:17 Dose: 200 mg Phenytoin Sodium (Phenytoin Sodium Er 100 Mg Cap) 100 mg PO BID@0800,1430 [facility] Stop: 02/27/24 07:59 Last Admin: 01/31/24 14:44 Dose: 100 mg Polyethylene Glycol (Polyethylene (Miralax) 17 Gm Pack) 17 gm PO DAILY [facility] Stop: 02/28/24 15:44 Last Admin: 01/31/24 09:05 Dose: 17 gm Sertraline HCl (Sertraline Hcl 50 Mg Tablet) 50 mg PO DAILY [facility] Stop: 02/27/24 08:59 Last Admin: 01/31/24 09:04 Dose: 50 mg
[2024-02-01 07:31] LABS: Basophils # (auto) 0.02 K/uL (0.00-0.20); Basophils % (auto) 0.3 %; Eosinophils # (auto) 0.07 K/uL (0.00-0.50); Eosinophils % (auto) 1.2 %; Hematocrit (blood only) 48.8 % (42.0-52.0); Hemoglobin 16.5 g/dl (14.0-18.0); Immature Granulocytes # (auto) 0.06 K/uL (0.01-0.20); Lymphocytes # (auto) 1.39 K/uL (1.20-3.40); Lymphocytes % (auto) 23.9 %; Mean Corpuscular Hemoglobin 33.1 pg (25.0-34.0); Mean Corpuscular Hgb Conc 33.8 g/dL (32.0-36.0); Mean Platelet Volume 9.1 fL (9.4-12.4); Monocytes # (auto) 0.51 K/uL (0.11-0.59); Monocytes % (auto) 8.8 %; Neutrophils # (auto) 3.77 K/uL (1.40-6.50); Neutrophils % (auto) 64.8 %; Platelet Count 194 K/uL (130-400); RDW Coefficient of Variation 13.2 % (11.5-14.5); RDW Standard Deviation 47.8 fL (36.4-46.3); Red Blood Count 4.98 M/uL (4.70-6.10); White Blood Count 5.82 K/ul (4.8-10.8)
[2024-02-01 08:02] LABS: BUN Creatinine Ratio 26.7 (10-20); Calcium 8.9 mg/dl (8.6-10.3); Creatinine Clr Calc Pharmacy 77.2 ml/min; Est GFR (African American) 97.2 ml/min; Est GFR (Non-African American) 83.8 ml/min; Potassium 4.1 mmol/L (3.5-5.1)
--- NOTE | 2024-02-01 13:39 | Hospitalist Progress Note ---
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 Right-sided chest pain Submassive Pulmonary emboli Pleural effusion on right Initially patient was accepted in transfer to [facility] as he has multiple specialist at [facility]; however IR felt there was no indication for thrombolysis or catheter directed therapy and felt his acute care could be managed here Has been on intravenous heparin drip Discussed case with patient's oncologist, Dr. Renteria Neurosurg wants a repeat head CT when Xa levels therapeutic Ultrasound of the extremities did show left peroneal vein DVT Echo of the heart did not show any right heart strain Appreciate pulmonary input and recommendation Control pain with prn [place] for moderate pain, IV dilaudid for severe pain, lidocaine patch supplemental oxygen as needed Clinically a little better but continues to have pleuritic chest pain on the right side Has been saturating normally on room air Likely to transfer to DOAC therapy from tomorrow Discussed with Dr. Renteria the brass cutter/oncologist and advised to have Lovenox preferably or even dog can be given She will find a date for next chemo after discussion with the pharmacist Discussed with the family members and the preferred to have Lovenox Has been on subcu Lovenox since last evening Likely discharge tomorrow on subcu Lovenox once a day Clinically much better and remains stable Has had PT and OT evaluation and recommended rehab Remains medically stable without any more chest pain with breathing Has had physical therapy and he has been doing much better Will be transferred to [facility] this afternoon Imaging studies --CTA Chest:IMPRESSION: 1. Pulmonary emboli as above with associated right heart strain. 2. Trace right pleural effusion with mild bibasilar atelectasis. 3. Partially calcified irregular 9 mm superior segment left lower lobe and noncalcified 7 mm right upper lobe pulmonary nodules. Six-month follow-up chest CT recommended. 4. Mild fusiform dilation of the ascending thoracic aorta, 4 cm. (2) Right-sided chest pain: (3) Glioblastoma: Plan: Glioblastoma Seizure d/o 2/2 above L sided hemiplegia 2/2 above follows [facility] onc and neurosurg S/P mass resection/craniotomy in 2019; redo right frontal craniotomy for removal of tumor 08/12/23 Currently with evidence of disease progression Continue decadron therapy Discussed with Dr. Renteria who states pt to keep his scheduled follow up. He is no longer a candidate for the upcoming plan of bevacizumab Plan to start lomustine once approved Continue keppra, vimpat and dilantin Repeat CT scan of the head x 2 following the initial 1 did not show any significant abnormalities Plan to continue current management and repeat a CT scan tomorrow morning He does not have any new neurologic symptoms Repeat CT scan of the head did not show any change compared with prior CTs Discussed with Dr. Ruffin the neurosurgeon will schedule an appointment within 2 weeks Will get PT and OT evaluation Possible discharge on Wednesday depending on the recommendation Will inform Dr. Thompson and Dr. Ruffin for the continuation of care for glioblastoma (4) Pleural effusion on right: (5) Hypertension: (6) Dyslipidemia: (7) Obstructive sleep apnea, adult: Plan Calcified lung nodules: Recommend follow up CT in 6 months Fusiform dilation of ascending thoracic aorta, 4cm oupt follow up Chronic conditions: RAMOS on Cpap HTN: currently not on antihypertensive therapy HLD: continue statin MDD: continue zoloft DVT ppx: IV heparin FULL CODE: discussed with pt and Dispo: admit to PCU, PT/OT consults, pt significant physical decline, family is open to rehab if this is recommended PCP: Guanaco Will be transferred to [facility] this afternoon Admission and Anticipated Discharge Date Admission Date: January 27, 2024 Subjective 01/28/2024 The patient was seen and examined in telemetry unit He was admitted with right-sided chest pain and shoulder pain worse with breathing and also shortness of breath Still complains to have pain in the right side of the chest anteriorly and posteriorly and worse with breathing coughing sneezing and while using spirometer He has left-sided weakness which has not been progressed No new neurological symptoms 01/29/2024 The patient was seen and examined in telemetry unit in presence of the family members He has been feeling much better Pain in the chest is decreased. No shortness of breath and Does not have any new neurological symptoms 01/30/2024 The patient was seen and examined in the telemetry unit He has been feeling much better His pain in the right chest has decreased and he does not have any new neurological symptoms Has had minimal questionable hemoptysis but no more 01/31/2024 Patient was seen and examined in telemetry unit in presence of the He has been feeling much better Chest pain with breathing is improved No new neurological symptoms 02/01/2024 The patient was seen and examined in telemetry unit in presence of the family members He has been much better today Has been moving left-sided extremities a little bit Has had physical therapy Denies any chest pain or palpitation Review of Systems Review of Systems: All systems reviewed and are unremarkable except as noted below Neurologic: Left-sided weakness about 3/5. No new neurologic symptoms and/or signs Physical Exam Physical Exam: Lying in bed with distress secondary to pain in the chest Constitutional: well developed, well nourished, + ill appearing and + obese Eyes: PERRL, conjunctivae normal, anicteric sclerae ENMT: external ear and nose normal, oropharynx normal Neck: trachea midline, no thyromegaly Respiratory: + respiratory distress (Minimal distress at rest. Test pain with breathing) Auscultation: + diminished lung sounds and + crackles (Minimal crackles at the bases) Cardiovascular: Rate/Rhythm: regular rate and regular rhythm; not tachycardic Heart Sounds: normal S1 and normal S2; no murmur Extremities: no edema Gastrointestinal (Abdomen): Inspection/Auscultation: normal bowel sounds; abdomen not distended Percussion/Palpation: abdomen soft; abdomen nontender Neurologic: normal touch/pain/proprioception, moves all extremities (Less movement of the left-sided extremities) and + focal motor deficit (3/5 power all over left-sided extremities) Psychiatric: A+Ox3, euthymic affect Lymphatic: no cervical or axillary lymphadenopathy Results & Data Results & Data Vital Signs (Past 12 Hours) Vital Signs Temp Pulse Pulse Resp BP Pulse Ox O2 Del Method 02/01/24 11:24 36.7 C 91 H 18 116/74 93 Room Air 02/01/24 07:48 74 02/01/24 07:32 36.7 C 77 18 112/71 95 Room Air 02/01/24 03:18 36.5 C 73 18 122/83 94 Room Air Laboratory Results Short CBC 02/01/24 Range/Units 06:07 WBC 5.82 (4.8-10.8) K/ul Hgb 16.5 (14.0-18.0) g/dl Hct 48.8 (42.0-52.0) % Plt Count 194 (130-400) K/uL [facility] 02/01/24 06:07 Sodium 136 Potassium 4.1 Chloride 102 Carbon Dioxide 27 BUN 24 H Creatinine 0.90 Glucose 101 H Calcium 8.9 Medications Administered Current Inpatient Medications Acetaminophen (Acetaminophen 325 Mg Tab) 650 mg PO Q4H PRN PRN Reason: Pain or Fever Stop: 02/26/24 15:55 Last Admin: 02/01/24 13:08 Dose: 650 mg Hydrocodone Bitart/Acetaminophen (Hydrocodone/Acetamophen 5/325mg Tab) 1 tab PO Q6H PRN PRN Reason: Moderate Pain (Scale 4, 5, 6) Stop: 02/10/24 15:55 Last Admin: 01/29/24 21:08 Dose: 1 tab Al Hydrox/Mg Hydrox/Simethicone (Aluminum/Magnesium Susp 30 Ml Udc) 15 ml PO Q4H PRN PRN Reason: Dyspepsia Stop: 02/26/24 15:55 Atorvastatin Calcium (Atorvastatin 10 Mg Tab) 10 mg PO QAM [facility] Stop: 02/27/24 08:59 Last Admin: 02/01/24 08:12 Dose: 10 mg Clonazepam (Clonazepam 0.5 Mg Tab) 0.5 mg PO TID PRN PRN Reason: Anxiety Stop: 02/26/24 15:55 Last Admin: 01/30/24 10:25 Dose: 0.5 mg Dexamethasone (Dexamethasone 4 Mg Tab) 2 mg PO BID [facility] Stop: 02/28/24 08:59 Last Admin: 02/01/24 08:12 Dose: 2 mg Docusate Sodium (Docusate Sodium 100 Mg Cap) 100 mg PO BID [facility] Stop: 02/26/24 20:59 Last Admin: 02/01/24 08:12 Dose: 100 mg Enoxaparin Sodium (Enoxaparin 100 Mg/1ml Syr) 90 mg SQ Q12 [facility] Stop: 02/28/24 20:59 Last Admin: 02/01/24 08:11 Dose: 90 mg Hydromorphone HCl (Hydromorphone Inj 0.5 Mg/0.5 Ml Syr) 0.5 mg IV Q2H PRN PRN Reason: Severe Pain (Scale 7, 8, 9,10) Stop: 02/10/24 15:55 Lacosamide (Lacosamide 50 Mg Tablet) 200 mg PO BID [facility] Stop: 02/26/24 20:59 Last Admin: 02/01/24 08:37 Dose: 200 mg Levetiracetam (Levetiracetam 500 Mg Tab) 1,500 mg PO BID [facility] Stop: 02/26/24 20:59 Last Admin: 02/01/24 08:12 Dose: 1,500 mg Lidocaine (Lidocaine 5% 1 Patch) 1 patch TD QAM [facility] Stop: 02/26/24 13:59 Last Admin: 02/01/24 08:11 Dose: 1 patch Miscellaneous (Remove Lidoderm Patch) 1 each N/A DAILY@2100 [facility] Stop: 02/26/24 23:58 Last Admin: 01/31/24 20:59 Dose: 1 each Ondansetron HCl (Ondansetron Inj 2 Mg/Ml 2 Ml Vial) 4 mg IV Q6H PRN PRN Reason: Nausea Stop: 02/26/24 15:55 Phenytoin Sodium (Phenytoin Sodium Er 100 Mg Cap) 200 mg PO DAILY@2130 [facility] Stop: 02/26/24 21:29 Last Admin: 01/31/24 20:55 Dose: 200 mg Phenytoin Sodium (Phenytoin Sodium Er 100 Mg Cap) 100 mg PO BID@0800,1430 [facility] Stop: 02/27/24 07:59 Last Admin: 02/01/24 08:12 Dose: 100 mg Polyethylene Glycol (Polyethylene (Miralax) 17 Gm Pack) 17 gm PO DAILY [facility] Stop: 02/28/24 15:44 Last Admin: 02/01/24 08:11 Dose: 17 gm Sertraline HCl (Sertraline Hcl 50 Mg Tablet) 50 mg PO DAILY [facility] Stop: 02/27/24 08:59 Last Admin: 02/01/24 08:11 Dose: 50 mg
--- NOTE | 2024-02-02 08:29 | Discharge Summary ---
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 His is at bedside who helps elicit history. Of significance patient was diagnosed with glioblastoma approximately 4 years ago status post surgical resection. He has continued to have increased poor mobility associated with significant left-sided weakness. He is following closely with neurosurgery as well as oncology at [facility]. His oncologist is Dr. Llamas. Plan was for patient to have a port placed tomorrow to resume treatment due to evidence of tumor progression. He currently is on Decadron therapy secondary to vasogenic edema and tumor burden. This morning at approximately 2:30 AM he developed right-sided chest pain that radiated to his right shoulder. It kept him awake and he was unable to fall as leep. called the on-call oncology team who recommended he be seen in ED for further evaluation. His pain is constant but comes and goes in severity. When very severe he describes it as sharp and shooting otherwise it is mostly dull. It is worsened with movement and deep breathing. Resting makes it better. In ED he has had IV Dilaudid and IV fentanyl with minimal improvement. He denies any significant shortness of breath, lightheadedness, dizziness, fever, chills, sweats, cough, hemoptysis, nausea, vomiting or abdominal pain. In ED he remained hemodynamically stable. He did become slightly hypoxic secondary to administration of IV narcotics. CTA chest was performed which revealed pulmonary emboli with associated right heart strain, trace right pleural effusion and mild bibasilar atelectasis. He was started on IV heparin. ER provider discussed case with transfer center at [facility]. Initially plan was for patient to be transferred under hospitalist service with close follow-up regarding his oncology team. This eventually was denied as it was not felt the patient required any direct catheter therapy or thrombectomy. Admission Exam Per Admitting Provider Physical Exam: Constitutional: WD/WN, Pt in pain, vitals as above, NAD, sitting up in bed, pleasant, conversing easily Head: +craniotomy scar, Normocephalic, Atraumatic Eyes: PERRL, conjunctivae normal, anicteric sclerae ENMT: external ear and nose normal, oropharynx normal Neck: trachea midline, no thyromegaly normal visual inspection Respiratory: decreased respiratory effort 2/2 pain, lungs clear to auscultation, no wheeze, rales, rhonchi. no accessory muscle use Cardiovascular: RRR, no murmur, no edema Vessels: no JVD or carotid bruit Chest: normal inspection of chest +TTP R chest wall Abdomen: normal bowel sounds, soft, nontender, no hepatosplenomegaly Musculoskeletal: no cyanosis or clubbing, L sided weakness 3/5 b/l, chronic Skin: no rashes, warm and dry normal turgor Neurologic: PERRL, EOMI, accommodation nl, no face palsy, no dysarthria CN's II-XI intact bilaterally and moves all extremities Psychiatric: A+Ox3, euthymic affect Lymphatic: no cervical or axillary lymphadenopathy : deferred Principal Diagnosis Bilateral pulmonary embolism, glioblastoma of the brain, seizure disorder, left hemiparesis, RAMOS, hypertension Discharge Exam Lying in bed with distress secondary to pain in the chest Constitutional well developed, well nourished, + ill appearing and + obese Eyes PERRL, conjunctivae normal, anicteric sclerae ENMT external ear and nose normal, oropharynx normal Neck trachea midline, no thyromegaly Respiratory + respiratory distress (Minimal distress at rest. Test pain with breathing) Auscultation: + diminished lung sounds and + crackles (Minimal crackles at the bases) Cardiovascular Rate/Rhythm: regular rate and regular rhythm; not tachycardic Heart Sounds: normal S1 and normal S2; no murmur Extremities: no edema Gastrointestinal (Abdomen) Inspection/Auscultation: normal bowel sounds; abdomen not distended Percussion/Palpation: abdomen soft; abdomen nontender Neurologic normal touch/pain/proprioception, moves all extremities (Less movement of the left-sided extremities) and + focal motor deficit (3/5 power all over left-sided extremities) Psychiatric A+Ox3, euthymic affect Lymphatic no cervical or axillary lymphadenopathy Discharge Data Allergies Allergy/AdvReac Type Severity Reaction Status Date / Time amoxicillin Allergy Unknown HEADACHE Verified 01/18/24 20:43 acetaminophen [From Percocet] AdvReac Mild Verified 01/27/24 13:12 oxycodone [From Percocet] AdvReac Mild Verified 01/27/24 13:12 Penicillins AdvReac Unknown headache Verified 01/18/24 20:43 Consultations 01/27/24 13:54 Consult Pulmonology Routine Ordered Studies 01/27/24 08:52 CT Abd and Pelvis [CT abd pelvis IV con only] Stat CT for pulmonary embolism PE [CT angio chest PE protocol] Stat 01/27/24 13:18 US venous doppler LE BI Stat 01/27/24 21:05 CT head/brain wo con Routine 01/28/24 04:35 CT head/brain wo con Urgent 01/29/24 07:14 CT Brain [CT head/brain wo con] Urgent Hospital Course (1) Pulmonary emboli: This is a 73-year-old male who has a significant past medical history of glioblastoma status post right frontoparietal craniotomy, HTN, HLD, 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 Right-sided chest pain Submassive Pulmonary emboli Pleural effusion on right Initially patient was accepted in transfer to [facility] as he has multiple specialist at [facility]; however IR felt there was no indication for thrombolysis or catheter directed therapy and felt his acute care could be managed here Has been on intravenous heparin drip Discussed case with patient's oncologist, Dr. Renteria Neurosurg wants a repeat head CT when Xa levels therapeutic Ultrasound of the extremities did show left peroneal vein DVT Echo of the heart did not show any right heart strain Appreciate pulmonary input and recommendation Control pain with prn [place] for moderate pain, IV dilaudid for severe pain, lidocaine patch supplemental oxygen as needed Clinically a little better but continues to have pleuritic chest pain on the right side Has been saturating normally on room air Likely to transfer to DOAC therapy from tomorrow Discussed with Dr. Renteria the artillery specialist/oncologist and advised to have Lovenox preferably or even dog can be given She will find a date for next chemo after discussion with the pharmacist Discussed with the family members and the preferred to have Lovenox Has been on subcu Lovenox since last evening Likely discharge tomorrow on subcu Lovenox once a day Clinically much better and remains stable Has had PT and OT evaluation and recommended rehab Remains medically stable without any more chest pain with breathing Has had physical therapy and he has been doing much better Will be transferred to [facility] this afternoon Imaging studies --CTA Chest:IMPRESSION: 1. Pulmonary emboli as above with associated right heart strain. 2. Trace right pleural effusion with mild bibasilar atelectasis. 3. Partially calcified irregular 9 mm superior segment left lower lobe and noncalcified 7 mm right upper lobe pulmonary nodules. Six-month follow-up chest CT recommended. 4. Mild fusiform dilation of the ascending thoracic aorta, 4 cm. (2) Right-sided chest pain: (3) Glioblastoma: Glioblastoma Seizure d/o 2/2 above L sided hemiplegia 2/2 above follows [facility] onc and neurosurg S/P mass resection/craniotomy in 2019; redo right frontal craniotomy for removal of tumor 08/12/23 Currently with evidence of disease progression Continue decadron therapy Discussed with Dr. Renteria who states pt to keep his scheduled follow up. He is no longer a candidate for the upcoming plan of bevacizumab Plan to start lomustine once approved Continue keppra, vimpat and dilantin Repeat CT scan of the head x 2 following the initial 1 did not show any significant abnormalities Plan to continue current management and repeat a CT scan tomorrow morning He does not have any new neurologic symptoms Repeat CT scan of the head did not show any change compared with prior CTs Discussed with Dr. Ruffin the neurosurgeon will schedule an appointment within 2 weeks Will get PT and OT evaluation Possible discharge on Wednesday depending on the recommendation Will inform Dr. Thompson and Dr. Ruffin for the continuation of care for glioblastoma (4) Pleural effusion on right: (5) Hypertension: (6) Dyslipidemia: (7) Obstructive sleep apnea, adult: Plan Calcified lung nodules: Recommend follow up CT in 6 months Fusiform dilation of ascending thoracic aorta, 4cm oupt follow up Chronic conditions: RAMOS on Cpap HTN: currently not on antihypertensive therapy HLD: continue statin MDD: continue zoloft DVT ppx: IV heparin FULL CODE: discussed with pt and Dispo: admit to PCU, PT/OT consults, pt significant physical decline, family is open to rehab if this is recommended PCP: Guanaco Will be transferred to [facility] this afternoon Total Time Total Time Spent Total Time Spent (In Minutes): 45 minutes Discharge Plan Discharge Items Patient Disposition: Transfer Inpatient Rehab Fac Reason For Visit: BILATERAL PE WITH HEART STRAIN Discharge Diagnosis: Bilateral pulmonary embolism, glioblastoma of the brain, seizure disorder, left hemiparesis, RAMOS, hypertension Condition on Discharge: Fair Activity: As commented below Activity Comment: Continue physical therapy Non-emergency contact: Primary Care Provider Call non-emergency contact if: you have any medication questions and your symptoms worsen Follow-up/Referrals: Uzair Blanc MD [Primary Care Provider] - (Please make an appointment with your PCP within 7 days following discharge from the facility) Fide Bush PA-C [Outside Practitioners] - (Date & Time 02/16/2024 12:00 PM Provider Fide Bush PA-C Department Hematology Oncology [facility] ) Shellie Gregory PA-C [Outside Practitioners] - (Date & Time 03/01/2024 2:20 PM Provider Shellie Gregory PA-C Department Neurology, [place] ) Diet: Regular Addtl Attending Provider Instructions: Please take precautions to avoid falls Take your medications as advised Continue Lovenox as advised Continue PT and OT as advised Please keep appointments with the healthcare providers especially your oncologist and also your neurosurgeon-They have been notified For pulmonary nodule you will need to have a repeat CAT scan of the chest in 6 months Pending Studies at Discharge: No Stand-Alone Forms: My [facility] Skilled Items Patient informed of condition?: Yes DNR: No Discharge Level of Care: Acute rehab Communicable Disease: No Discharge Prognosis: Stable Lines: None Urinary Catheter: No Medications and DC Order Prescriptions: New lidocaine 5 % Adhesive Patch,Medicated 1 patch transdermal QAM Qty: 30 0RF enoxaparin 100 mg/mL Syringe 90 mg subcut Q12 Qty: 10 0RF dexamethasone 4 mg Tablet 2 mg PO BID Qty: 30 0RF Continued levetiracetam [Keppra] 500 mg tablet 1,500 mg PO BID Rx Instructions: Take with 1,000mg tab =1,500 mg bid. phenytoin sodium extended 100 mg capsule 100 mg PO .COMPLEX Rx Instructions: 100 mg PO 1 pill at 8am, 1 pills at 1430 and 2 pill 2130; Vimpat 200 mg tablet 200 mg PO BID sertraline 50 mg tablet 50 mg PO DAILY ondansetron 8 mg tablet,disintegrating 8 mg PO Q8H PRN (Reason: Nausea) clonazepam 0.5 mg tablet 0.5 mg PO TID PRN (Reason: Anxiety) atorvastatin 10 mg tablet 10 mg PO QAM Rx Instructions: not taking because of trouble swallowing acetaminophen [Tylenol Extra Strength] 500 mg Tablet 1,000 mg PO Q8 PRN (Reason: Pain) clotrimazole-betamethasone 1-0.05 % cream 1 applic TOPICAL UD Discontinued dexamethasone 4 mg tablet 4 mg PO UD Rx Instructions: Take 1 tablet in the a.m. and 1/2 tablet in the evening Discharge Orders: Discharge Order (Routine); Ordered 02/01/24 Ordered By: Sherice Noel/Other Patient Handouts: Enoxaparin Injectable Solution, Understanding Deep Vein Thrombosis, Pulmonary Embolism, Preventing Deep Vein Thrombosis, DVT Tx Admission Data Admit Date/Time: 01/27/24 12:43 Attending Provider: Sherice Calixto Admit Provider: Delphine Horne Primary Care Provider: Uzair Blanc Other Providers: Juan Carlos Edgar; Delphine Horne; [facility]; [facility] Other Interventions: Discharge Summary Assessment (RN) Last Done: 02/01/24 14:42
== END 2024-02-01 17:18 | DRG 175 ==
LOC: ED 08:02 → SUATTDRO 12:43 → EDINP 12:43 → 2S 22:32